=== PATIENT | male | born 1950 | race Caucasian/White ===

== ENCOUNTER 2024-06-16 13:46 | Inpatient (IN) | payer MEDICARE, BC, SELFPAY ==
[2024-06-16] VITALS (16 sets, daily range): BP systolic 112–166; BP diastolic 66–105
--- NOTE | 2024-06-16 10:16 | ED.GENMED ---
History of Present Illness
General
Chief Complaint: Chest Pain
Source: patient
Time Seen by Provider: 06/16/24 10:09
History of Present Illness
History of Present Illness:
74-year-old male presents to the emergency room complaining of chest pain. Patient noted the chest discomfort last night. He describes it as a pressure that does radiate somewhat to the left arm. He took some ibuprofen without improvement. The
pain waxes and wanes in intensity. He did feel short of breath with walking today. He denies any known cardiac history. He has never seen a vocational case manager. He does not currently smoke but is a former smoker quit 40 years ago. He takes no
prescription medications.
Past History
Past History
ED Past Medical History: None
ED Past Surgical History: Other (Cataract surgery)
Social History
Tobacco: Former smoker
Alcohol: Occasional
Drug: None
Phy Exam
Physical Exam
Physical Exam:
General: Awake, Alert, Oriented X3. No acute distress.
Vitals: unremarkable
Head: Atraumatic
Eyes: Pupils equal, EOMI
Throat: Airway intact, no exudates
Neck: Trachea midline
Lungs: Clear and equal b/l
Heart: Regular rate, no murmurs
Abd: Soft, Nontender, No pulsatile mass
Neuro: Nonfocal
Skin: Warm, dry, no rash
Extremities: pulses equal b/l, no edema
Scores
Heart Score for Chest Pain Patients
STEMI patient?: No
History: Highly Suspicious
ECG: Significant ST-Depression
Age: >/= 65 years
Risk Factors: 1 or 2 Risk Factors
Troponin: >1 - <3 x Normal Limit
Heart Score for Chest Pain Patients: 8
Heart Score Risk: 72.7 % MACE over next 6 weeks
Course
Orders/Labs/Results
Orders:
Orders
06/16/24
Electrocardiogram (*1) Stat
Reason for Study: Chest Pain
Comment: DONE
06/16/24 09:58
EKG [Electrocardiogram (*1)] Urgent
Reason for Study: Chest Pain
EKG- Treatment ONCE
06/16/24 10:14
Aspirin Chewable [Low Strength Aspirin] 324 mg PO NOW STA
Nitroglycerin Sublingual [Nitrostat (Sublingual)] 0.4 mg SL [id number] PRN
06/16/24 10:15
Cardiac Monitoring- Treatment ONCE
CR Chest Portable - 1 View Urgent
Comment:
Reason For Exam: chest pain
Reason Study Needs to be Portable: Unable to Transport
06/16/24 10:20
Basic Metabolic Panel Urgent
Complete Blood Count/With Diff Urgent
Troponin I Urgent
06/16/24 11:13
Heparin 4,000 units IV NOW STA
Nitroglycerin 100 mg/250 ml [Nitroglycerin Premix] 100 mg in 250 ml IV NOW
Initial dose in mcg/min, then titrate:: 5
Titrate to keep:: SBP < 160 mmHg
Titrate by mcg/min:: 5 mcg/min, may increase by 10 mcg/min if dose > 20 mcg/min
Frequency of titrations (minutes):: every 3-5 minutes
Maximum dose in mcg/min:: 200
Begin to taper infusion when:: Remained at goal for 2hrs
Taper by mcg/min:: 5 mcg/min
Frequency of taper (minutes) if patient maintains goal:: 30
Taper to off?: Yes
If infusion off & no longer maintaining goal:: Contact Provider
Nursing to Place Non Medication Order As Directed
Physician Order: PTT 6 hours after initial start of Heparin infusion
06/16/24 11:15
Heparin 69672 Units/250 ml 25,000 units in 250 ml IV PER PROTOCOL
Weight to be used for heparin protocol in kilograms (kg):: 98
Protocol:: Cardiac Tx/Acute Coronary
PTT Goal Range to be used:: PTT 73 to 111 seconds
Order type:: Initial
INITIAL Infusion Dose (UNITS/KG/hr) & then follow protocol:: 15 units/kg/hr
Infusion Dose in UNITS/hr & then follow protocol (UNITS/hr):: 1,450
INFUSION RATE in mL/hr & then follow protocol (mL/hr):: 14.5
PTT less than or equal to 64 seconds:: Increase rate by 200 units/hr (+ 2 mL/hr)
PTT 64.1 to 72.9 seconds:: Increase rate by 100 units/hr (+ 1 mL/hr)
PTT 73 to 111 seconds:: Target Range. No change in rate.
PTT 111.1 to 130.9 seconds:: Decrease rate by 100 units/hr (- 1 mL/hr)
PTT 131 to 199.9 seconds:: HOLD for 1 hr. Then decrease rate by 200 units/hr (- 2 mL/hr)
PTT greater than or equal to 200 seconds:: HOLD for 2 hrs & Notify Provider. Then decrease by 200 units/hr (-
2 mL/hr)
Lab follow-up:: Each change, PTT q6h until 2 consecutive are therapeutic. Then PTT
daily.
06/16/24 11:43
PTT Urgent
Comment: Obtain baseline before beginning heparin infusion if not already collected
Abnormal Lab Results
06/16/24 06/16/24
10:20 11:43
MCH 31.6 H pg
(27.0-31.0)
Lymphocytes % 19.6 L %
(20.5-51.1)
APTT > 200.0 H* Sec
(23.4-35.0)
Glucose 124 H mg/dl
(70-99)
Troponin I 0.046 H* ng/ml
06/16/24 10:20
06/16/24 10:20
Vital Signs
Initial and Last Documented VS:
Initial Vital Signs
Temp Pulse Resp BP Pulse Ox
98.7 F 75 16 153/99 98
06/16/24 10:02 06/16/24 10:02 06/16/24 10:02 06/16/24 10:02 06/16/24 10:02
Last Documented Vital Signs
Temp Pulse Resp BP Pulse Ox
98.7 F 76 18 144/85 98
06/16/24 10:02 06/16/24 10:30 06/16/24 10:30 06/16/24 10:34 06/16/24 10:32
MDM/Problems Addressed
Differential Diagnosis Includes:
nstemi, ptx, gerd
MDM/Problems Addressed:
Patient presents with chest discomfort that began last night. He has T wave inversion in the anterior leads which is new when compared to an EKG of 2021. His troponin did come back elevated though slightly at 0.046. Case discussed with
cardiology, Dr. Ross. We will admit the patient to the hospital service. Start nitro and heparin. Cardiology will see the patient
Patient seen by Dr. Mejía. Plan is to take him to the [facility] shortly.
*Pulse Oximetry
Patient hypoxic: no
*EKG
Interpreted by ED Provider?: Yes
Interpretation: abnormal
Heart Rate: 63
Rate: normal
Rhythm: sinus
QRS Pattern: normal QRS
Ischemia: T-wave inversion (Anterior leads)
*Loan Secretary Interpretation
Rate: normal
Interpretation: normal
Heart Rate: 63
Rhythm: sinus
*Critical Care Note
Total Time (30-74mins, 75-104mins- exclusive of procedures): 35 min
comment:
Critical care statement: A total of 35 minutes of critical care time was provided for this patient. This includes management of unstable vital signs, evaluation of the patient at bedside, reviewing the patient�s pertinent medical records, discussion
with consultants, review of old EKGs and review of pertinent medical records. This time with separate from time utilized to perform the aforementioned documented procedures
ED Attending Note
-
Portions of this chart may have been created with voice recognition software.� Occasional wrong word or��sound alike� substitutions may have occurred due to the inherent limitations of voice recognition software.
Discharge Plan
Departure
Patient Disposition: Admit
Date of Disposition: 06/16/24
Time of Disposition: 11:25
Admit to: IVU
Presentation/result/management discussed w/ accepting MD/DO: Hospitalist
Condition: Fair
Discharge Problem:
Non-ST elevation IA (NSTEMI)
Prescriptions:
No Action
ibuprofen [Advil] 200 mg Tablet
200 mg PO Q6HPRN PRN (Reason: mild pain)
Referrals:
UNKNOWN - PT DOES,NOT KNOW [Family Provider] -
Interventions
Interventions:
*Risk Screen - Suicide Last Done: 06/16/24 10:02
*General Assessment Last Done: 06/16/24 10:32
*Neglect/Abuse Screening Last Done: 06/16/24 10:02
*ED- Fall Risk Assessment Last Done: 06/16/24 10:32
*ED COVID-19 Vaccine History Last Done: 06/16/24 10:32
ED- Cardiac Assessment Last Done: 06/16/24 10:29
Discharge Date and Time
Print Language: AZERBAIJANI
[2024-06-16] MEDS: LOW STRENGTH ASPIRIN 324 MG PO (10:25)
[2024-06-16] MEDS: NITROSTAT (SUBLINGUAL) 0.4 MG SL (10:27)
[2024-06-16 10:35] LABS: % Basophils 0.6 % (0-2); % Eosinophils 3.4 % (0-6); % Immature Granulocytes 0.5 % (0-0.5); % Lymphocytes 19.6 % (20.5-51.1); % Monocytes 6.3 % (1.7-9.3); % Neutrophils 69.6 % (42.2-75.2); Absolute Basophils 0.1 10^3/uL (0-0.2); Absolute Eosinophils 0.3 10^3/uL (0-0.7); Absolute Lymphocytes 1.5 10^3/uL (1.2-3.4); Absolute Monocytes 0.5 10^3/uL (0.1-0.6); Absolute Neutrophils 5.5 10^3/uL (1.4-6.5); Hematocrit 46.4 % (39.0-52.0); Hemoglobin 16.4 g/dL (13.0-18.0); Mean Corp Hgb Conc. 35.3 g/dL (33.0-37.0); Mean Corpuscular Hgb 31.6 pg (27.0-31.0); Mean Corpuscular Volume 89.4 fL (80.0-94.0); Mean Platelet Volume 9.9 fL (7.4-10.4); Nucleated Red Blood Cells % 0 % (-); Platelet Count 225 10^3/uL (130-400); Red Blood Cell Count 5.19 10^6/uL (4.70-6.10); Red Cell Dist. Width 12.3 % (11.5-14.5); White Blood Cell Count 7.8 10^3/uL (4.8-10.8)
[2024-06-16 10:51] LABS: Blood Urea Nitrogen 14 mg/dl (9-20); Calcium 9.8 mg/dl (8.4-10.2); Carbon Dioxide 27 mmol/L (22-30); Chloride 103 mmol/L (98-107); Glucose 124 mg/dl (70-99); Potassium 4.4 mmol/L (3.5-5.1); Sodium 139 mmol/L (135-145); eGFR > 60.00
[2024-06-16 11:04] LABS: Troponin I 0.046 ng/ml
[2024-06-16] MEDS: HEPARIN 4000 UNITS IV (11:29)
[2024-06-16] MEDS: NITROGLYCERIN PREMIX 250 IV (11:37)
[2024-06-16 12:15] LABS: APTT > 200.0 Sec (23.4-35.0)
[2024-06-16] MEDS: HEPARIN 25000 UNITS/250 ML IV ×2 (12:31→18:10)
--- NOTE | 2024-06-16 12:50 | CON.CAR ---
Addendum entered and electronically signed by Ramin Toledo MD 06/16/24 16:03:
Attending addendum: Patient seen and examined. PA note reviewed and findings independently confirmed by me. Briefly, Mr. Hamilton is a 74-year-old gentleman who rarely seeks medical attention. He presented to [facility] with a 12 to
18-month history of intermittent substernal chest pain which he would note during periods of physical exertion or emotional stress. Within the past 48 hours the symptoms began occurring at lower levels of exertion or at rest. He experienced chest
discomfort yesterday and again today with troponin measuring 0.046 ng/mL. Given the symptoms and elevated troponin he is referred for emergent coronary angiography.
Physical exam
GEN: AAO x 3.��No acute distress
HEENT:��NC/AT, sclera are anicteric, hearing and nares are normal.��MMM
NECK: Supple.��Normal JVP
LUNGS: Clear to bases bilaterally.��No wheezing or rhonchi
CV: Regular rate and rhythm.��Normal S1/S2.��No S3, No S4.��Murmur: None
ABD : Soft, NT, ND, No HSM.��Bowel sounds are present.
EXT: No CCE
NEURO: No focal neurologic deficits�
ECG: Sinus rhythm with ST-T changes in the anterior leads V1 through V4
RECOMMENDATIONS:
-Patient will be referred for emergent coronary angiography given elevated troponins and unstable nature of symptoms. He is largely chest pain-free on IV nitroglycerin with only a very slight/very mild residual chest discomfort.
-Continue to trend serial troponins
-Discussed the risks and benefits of proceeding with emergent coronary angiography. Patient was in agreement.
Original Note:
Consultation
Consultation Request
Date/Time Consultation Performed: 06/16/24
Requesting Provider: Dr. Ugarte
Performing Provider: Soraya Villalpando PA-C for Dr. Nassar
Reason for Consultation: CP
Medical History
-
Chief Complaint: CP
History of Present Illness:
Patient is a 74 yo M without significant PMH. Patient states he does not have a PCP. He reports yesterday while watching TV he developed central chest discomfort with some mild radiation down his L arm. He reports this improved with sitting up. He
then had several additional episodes over the course of several hours which improved with sitting up. He states he then woke up this morning with chest discomfort which persisted and did not go away with sitting up with associated diaphoresis so he
came to ER for evaluation. No pain with taking deep breath. Initial trop 0.04. EKG with anteroseptal abnormality, noted on past EKG from 2021. Cardiology consulted for evaluation. Was given asa, SL nitro and started on IV heparin. He reports no
significant improvement with meds. Reports pain remains 06/05. Started on IV nitro @5.
PMH:
Obesity
Remote former smoker
Past Medical History
Past Medical History: Other (in HPI)
Social History
Tobacco: Former Smoker
Alcohol: Other (2-3 beers 4 times per week)
Employment: Retired
Family History
Family History: CAD (in father)
Allergies / Home Medications
Allergy/AdvReac Type Severity Reaction Status Date / Time
No Known Allergies Allergy Unverified 07/18/21 17:15
�Medication �Instructions �Recorded �Confirmed �Type
ibuprofen 200 mg tablet (Advil) 200 mg PO Q6HPRN PRN mild pain 06/16/24 06/16/24 History
Review of Systems
-
History Source: Patient
All other systems: Negative unless noted
Physical Exam
Vital Signs
Temp Pulse Resp BP Pulse Ox
98.7 F 76 18 144/85 98
06/16/24 10:02 06/16/24 10:30 06/16/24 10:30 06/16/24 10:34 06/16/24 10:32
Lab Results
06/16/24 10:20
06/16/24 10:20
Troponin I 0.046 ng/ml H* 06/16/24 10:20
Physical Exam
General: No Apparent Distress and Comfortable
HEENT: Normocephalic, Anicteric and Moist Mucous Membranes
Respiratory: Clear and Non Labored Respirations
Cardiac: S1/S2 and Regular Rhythm
GI: Soft, Non Tender, Non Distended and Normal Bowel Sounds
Musculoskeletal: No Clubbing, No Cyanosis and No Edema
Skin: Warm and Dry
Neuro: AO x 3
Impression / Plan
-
Primary Mds Coordinator: none
PCP: none
Assessment:
Presentation with CP
Elevated troponin
Abnormal EKG
Obesity
Remote former smoker
Plan:
-Patient presents to ER for evaluation of CP
-Initial trop elevated at 0.04, trend to peak
-EKG abnormal but similar compared to prior with anteroseptal ST abnormality
-CXR with evidence of atelectasis
-remains with 3/10 chest discomfort, not relieved with asa, SL nitro x1. presently on IV heparin and IV nitro gtt @5.
-last ate last evening. plan for cath today. procedure reviewed with patient in detail and he is agreeable to proceed
-check echo post cath
-continue asa 81mg daily
-check CVE, hgbA1c
-further recommendations pending results of cath
Data Reviewed
-
EKG: Tracing Personally Visualized and interpreted
Radiology: Report Reviewed by me
Labs: Labs Reviewed by me
Old Records: Reviewed
--- NOTE | 2024-06-16 12:58 | W.PN.UPDATE ---
Update Note
Progress Note Update
This is an addendum to the H&P written by Libertad Thapa on 06/16/2024.� Patient seen and examined independently with DISEASE CASE MANAGER RN.
74-year-old male past medical history of untreated hypertension, presenting with chest pressure since last night radiating to left arm.� Former smoker.� Drinks alcohol weekly.
EKG shows nonspecific T wave inversions.� Troponin of 0.046.
Concern for NSTEMI.� Aspirin given.� Heparin drip started.� Nitroglycerin drip started with some improvement in pain.� Trend troponins.� Check A1c and lipid panel.� Cardiology consulted. NPO for cath today.�
--- NOTE | 2024-06-16 13:08 | HPS.HSE ---
Family Physician
-
Family Physician: NOT KNOW UNKNOWN - PT DOES
Chief Complaint
-
Mid sternal cp to left arm since last night
History of Present Illness
74-year-old male who states last night at approximately 8 PM he developed midsternal chest pain radiating to his left arm this persisted through the night on and off however at 9 AM the midsternal chest pain came back with episode of diaphoresis it
was 5 out of 10 radiating to his left arm he decided to come to ER for evaluation where he was noted to have EKG changes and NSTEMI. He denies any nausea, fever, chills, shortness of breath, cough, abdominal pain, nausea, vomiting, diarrhea,
urinary symptoms. He was placed on IV nitroglycerin IV heparin drip still 3 out of 10 midsternal chest pain and left arm pain on my exam. His last p.o. intake was 8:30 PM yesterday 06/15/2024 except sip of water with aspirin in the ED. He states
his father had his first CT in his 50s but was a heavy smoker. Patient reports history of hypertension but did not take meds due to not feeling his hypertension. Cardiology Dr. Toledo is at bedside explaining need for cardiac cath procedure and
need for daily medication for which the patient states he will be compliant. The patient does drink 3 beers 4 times a week approximately 12 beers a week or more he was a former smoker 1 pack a day 15 years quit at age 34. I spoke with his daughter
Ny via phone [phone] who states she will come to the hospital after work. I made her aware the paste mixer will call her after the procedure is over.
Medical History
Past Medical History
Past Medical History: Reports HTN
Additional Past Medical History:
former smoker 15 year 1ppd quit age 34
Alcohol misuse disorder
Past Surgical History: Reports Other
Additional Past Surgical History:
Bilateral cataract extraction with lens implants
Social History
Tobacco: Former Smoker (former smoker 15 year 1ppd quit age 34)
Alcohol: Daily (Drinks 3 beers 4 times a week approximately 12 beers weekly)
Personal:
Living: Alone
Employment: Retired
Family History
Family History: Early CAD (Father CT age 50s no intervention, HTN, HLD, heavy smoker did in his 70s, mother lived to age 95 history hypertension, DM2)
Allergies / Home Medications
Allergies reflects when Allergies were last updated in [employer].
Home Medications with original date entered in [employer]
Allergy/Medication List:
Allergies
Allergy/AdvReac Type Severity Reaction Status Date / Time
No Known Allergies Allergy Unverified 07/18/21 17:15
Home Medications
ibuprofen 200 mg tablet (Advil) 200 mg PO Q6HPRN PRN mild pain 06/16/24
Review of Systems
-
History Source: Patient
A 12 point ROS was completed and negative except as noted: Yes
Constitutional: Denies Fever, Fatigue or Chills
EENT: Denies Sore Throat or Runny Nose
Respiratory: Denies Cough, Hemoptysis or Trouble Breathing
Cardiac: Reports Chest Pain (Midsternal 3 out of 10 radiating to left arm) and Diaphoresis (This a.m. at 9 AM); Denies Palpitations or Syncope
Abdomen/GI: Denies Abdominal Pain, Nausea, Vomiting, Diarrhea, Constipated, Bloody Stools, Black Stools or Anorexia
: Denies Dysuria, Frequency, Flank Pain, Incontinence, Difficulty Voiding, Urgency, Bleeding or Dark Urine
Musculoskeletal: Denies Joint Pain or Edema
Skin: Denies Itching or Rash
Neurological: Reports Headache (Post IV nitro); Denies Dizzy, Weakness or Numbness
Hematologic/Lymphatic: Reports No Symptoms
Psych: Reports Calm
Physical Exam
Vital Signs
Vital Signs
Temp Pulse Resp BP Pulse Ox
98.7 F 76 18 144/85 98
06/16/24 10:02 06/16/24 10:30 06/16/24 10:30 06/16/24 10:34 06/16/24 10:32
Physical Exam
General: Comfortable, Conversant and Pain (3 out of 10 midsternal chest pain on IV nitro/IV heparin radiates to left arm); No Chills or Sweats
HEENT: NormoCephalic, Anicteric, Moist mucous membranes, PERRLA, [place] Conjunctivae, No Ptosis and Neck Nontender
Respiratory: Clear; No Wheezes, Rales or Rhonchi
Cardiac: S1/S2 and Regular Rhythm; No Murmur, Rub, Gallop or Peripheral Edema
Breast: Deferred by me
GI: Soft, Non Tender, Non Distended, Normal Bowel Sounds and No Hepatosplenomegaly
Rectal: Deferred by Provider
Genito-urinary: Deferred by me
Musculoskeletal: No Clubbing and No Cyanosis
Skin: Warm and Dry; No Rash or Jaundice
Neuro: AO x 3, No Motor Deficits, Nonfocal/grossly intact, Cranial Nerves Intact and No Sensory Deficits; No Slurred Speech, Facial Droop, Tremors or Sedated
Psych: Calm
Laboratory Results
-
06/16/24 10:20
06/16/24 10:20
Laboratory Results
APTT > 200.0 Sec (23.4-35.0) H* 06/16/24 11:43
Troponin I 0.046 ng/ml H* 06/16/24 10:20
Data Reviewed
-
Diagnostic Radiology: Report Reviewed by me
Lab Data: Labs Reviewed by me
Impression/Plan
-
Impression/plan:
Admit to IVU
NSTEMI
-Consult cardiology Dr. Toledo at bedside
Troponin 0.046
-Aspirin 325 mg given in the ER for further therapy per cardiology recommendations
-IV nitroglycerin drip infusing will continue to titrate to chest pain
-IV heparin drip infusing will continue
APTT was drawn 1 hour after IV heparin bolus was given will see initial PTT greater than 200 however this is medication induced
-Check echo post cath
-PT/OT/case management consult
EKG: NSR 63 bpm, QTc [address] and T wave abnormality anterior leads With ST depression, T wave inversion
CXR: Minimal bibasilar airspace opacities likely atelectasis
#Alcohol misuse disorder
-Drinks 3 beers 4 times a week approximately 12 beers possibly more
-Cessation advised
-MSAs screen with protocol-low suspicion for withdrawal
-IV thiamine, IV folate
#History HTN
BP 144/85
-Patient reports history of hypertension never took meds due to not feeling any symptoms
-Patient was made aware will need to take medications post cardiac cath and he is agreeable and understands the importance
-Patient currently on IV nitro drip
-Additional medications per cardiology
#Former smoker
1 pack a day x 15 years quit age 34(40 years ago)
DVT prophylaxis
IV heparin drip
Full code patient's daughter Ny [phone] is his emergency contact she is aware of current cardiac cath will come to the hospital after work telephone number was given to Dr. Toledo and Soraya his PA
[2024-06-16 14:37] LABS: HDL Cholesterol 65 mg/dl; LDL Cholesterol, Calculated 188 mg/dl; Total Cholesterol 279 mg/dl (50-199); Triglyceride 131 mg/dl (10-149); Very Low Density Lipoprotein 26 mg/dl (0-30)
--- NOTE | 2024-06-16 15:39 | ITS.CL.CATH ---
Plugger Worker - Catheterization
Cardiac Catheterization
Procedure Report:
LEFT HEART CATHETERIZATION
Date of Procedure: June 16, 2024
Referring: Dr. Ramin Toledo
PROCEDURES:
1. Left heart catheterization with coronary and single-plane left ventriculography
INDICATION: This is a 74-year-old gentleman who never seeks medical attention but has a history of hypertension. He reports the development of substernal chest tightness going back at least 12 to 18 months during periods of physical and emotional
stress. The symptoms improve with rest and have always resolved spontaneously. On the day before admission he experienced chest pain lasting several hours with mild radiation into the arm. He awoke this morning and noticed some ongoing substernal
chest tightness and presented to [facility] for further evaluation. His initial troponin measured 0.04 ng/mL. A cardiology consult was requested. He was started on IV nitroglycerin and essentially became chest pain-free.
ACCESS: Right radial artery, 6 Luxembourgish sheath
HEMODYNAMICS : (mmHg)
AO (s/d) : 135/88
LV (s/d) : 138/15
LVEDP : 35
CORONARY FINDINGS
DOMINANCE: Right
LEFT MAIN: Normal
LEFT ANTERIOR DESCENDIN% occluded proximally with the distal vessel filling via well-developed right to left collaterals and faint left to left collaterals are noted as well.
RAMUS: Ramus intermedius is a small to medium caliber vessel that appears widely patent
CIRCUMFLEX: The circumflex becomes 100% occluded proximally. The distal vessel is noted to fill via faint right to left collaterals and left to left collaterals
RIGHT CORONARY ARTERY: The right coronary artery is a large-caliber dominant vessel with a 30% ostial-proximal narrowing. The PDA is large. The posterolateral branch is large. There are well-developed collaterals to the mid LAD and diagonal
branch. Collaterals are also noted to fill a circumflex branch.
VENTRICULOGRAPHY: Left ventriculography was performed in an QUIGLEY projection. The digital single-plane left ventricular ejection fraction is visually estimated at 45-50%
SEDATION: 24 minutes of procedural sedation was utilized. An independent chief medical physicist was present to assist with and help manage the patient's level of consciousness and physiologic status.
RADIATION SUMMARY: Fluoro Time (min): 5.2, Dose (mGy): 517, DAP (Gy.cm2) : 50
Closure Device: TR band
CONCLUSIONS
1. Advanced coronary artery disease with 100% occlusion of the proximal circumflex and proximal LAD with a distal vessel filling via well-developed right to left and faint left to left collaterals
2. Low normal to mildly reduced LVEF
RECOMMENDATIONS
1. Patient will be admitted and CT surgery consulted for surgical revascularization of LAD and circumflex
2. IV diuresis
3. Trend serial troponin
Copy to: Dr. Ramin Toledo
--- NOTE | 2024-06-16 15:56 | CM ---
Reviewed chart Met with Mr. Hamilton to review discharge plans. He states prior to admission he resides alone in a one story home with four steps to enter. He resides at [facility]. He states he has been there for twelve years. He states prior
to admission he was independent with ambulation and adls. He states he barron not have any DME in the home. He states he has a prescription plan and uses [facility]. Medical work-up in progress. The discharge plan is to return home when medically
stable.
--- NOTE | 2024-06-16 16:17 | CONSULT.CT ---
Consultation
-
Date/Time Consultation Requested: 06/16/24
Date/Time Consultation Performed: 06/16/24
Requesting Provider: Ramin Toledo
Performing Provider: Terrie DUDLEY/Norman Regalado MD
Reason for Consultation: CABG evaluation
Patient History
Physicians
Family Physician: none
Outpatient Insulator Helper: none
Inpatient Insulator Helper: Ramin Toledo
History of Present Illness
José Manuel Hamilton is a 74-year-old, [id number], male who presented to [facility] emergency room on 06/16/2024 for evaluation of midsternal chest pressure with radiation down his L arm while watching television last evening. Symptoms
resolved but experienced several additional episodes over the course of several hours which improved with sitting up. Today, the chest discomfort persisted (Rated 4-5/10) and was associated with diaphoresis. Initial troponin was 0.046 and he was
treated with IV heparin and nitroglycerin. Chest pain was reduced to a 2�3/10 and patient proceeded to Anaesthetic Technician.
Pertinent negatives: Denies CVA/TIA, dysphagia, GERD, hepatitis, BPH, blood clots, cancer
Past Medical History
Past Medical History: HTN (untreated) and Other (Fracture left foot-removed)
Past Surgical History
Past Surgical History: Other (Left cataract extraction)
Family History
Mother: at Age
Father: at Age
Family Medical History: Early CAD (father-[place] in his 50s)
Social History
Alcohol: Occasional (12 beers/week)
Drug: None
Tobacco: Former Smoker (Quit 40 years ago)
Personal:
Living: Alone
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
Allergies
Allergy/AdvReac Type Severity Reaction Status Date / Time
No Known Allergies Allergy Unverified 07/18/21 17:15
Home Medications
�Medication �Instructions �Recorded �Confirmed �Type
ibuprofen 200 mg tablet (Advil) 200 mg PO Q6HPRN PRN mild pain 06/16/24 06/16/24 History
Review of Systems
-
History Source: Patient
General: Reports No Symptoms
HEENT: Reports No Symptoms
Cardiac: Reports Chest Pain
Abdomen/GI: Reports No Symptoms
: Reports No Symptoms
Musculoskeletal: Reports No Symptoms
Skin: Reports No Symptoms
Neurological: Reports No Symptoms
Vascular: Reports No Symptoms
Physical Exam
Vital Signs
Temp 98.7 F 06/16/24 10:02
Temp route: Oral 06/16/24 10:02
Pulse 80 06/16/24 14:45
Resp Rate 29 06/16/24 14:45
Blood pressure 129/87 06/16/24 14:42
MAP (cuff-James Monitor) 100 06/16/24 14:42
SaO2 95 06/16/24 14:45
Oxygen Mode of Delivery Room air 06/16/24 15:15
Can the patient verbally communicate their pain? Yes 06/16/24 15:17
Pain scale ratin 06/16/24 15:17
Actual Weight 98 kg 06/16/24 15:33
Labs
06/16/24 13:43
06/16/24 10:20
APTT Cancelled 06/16/24 13:43
Troponin I 0.046 ng/ml H* 06/16/24 10:20
Diagnostic Studies
LHC via R radial by Dr Toledo 06/16/24:
LVEDP : 35
LEFT MAIN: Normal
LEFT ANTERIOR DESCENDIN% occluded proximally with the distal vessel filling via well-developed right to left collaterals and faint left to left collaterals are noted as well.
RAMUS: Small to medium caliber vessel that appears widely patent
CIRCUMFLEX: 100% occluded proximally. The distal vessel is noted to fill via faint right to left collaterals and left to left collaterals
RIGHT CORONARY ARTERY: 30% ostial-proximal narrowing. The PDA is large. The posterolateral branch is large. There are well-developed collaterals to the mid LAD and diagonal branch. Collaterals are also noted to fill a circumflex branch.
Exam
General: Well Developed, Well Nourished, No Apparent Distress and Comfortable
HEENT: Normocephalic, Anicteric and Moist Mucous Membranes
Neck: Trachea Midline
Respiratory: Clear
Cardiac: S1/S2 and Regular Rhythm
GI: Soft and Non Tender
Rectal: Deferred by Provider
Skin: Warm and Dry
Neuro: AO x 3 and No Motor Deficits
Lymph: No Lymphadenopathy
Psych: Calm
Assessment / Plan
-
74-year-old male with two-vessel coronary disease (LAD and circumflex)
- surgeon to review imaging and d/w restaurant cashier and patient
- pre-op diagnostics ordered including TTE
Data Reviewed
-
EKG: Report Reviewed by me and Discussed with Physician
Anaesthetic Technician: Report Reviewed by me and Discussed with Physician
Radiology: Report Reviewed by me and Discussed with Physician
Labs: Labs Reviewed by me and Discussed with Physician
[2024-06-16 16:50] LABS: GGTP 29 U/L (15-73); HDL Cholesterol 76 mg/dl; LDL Cholesterol, Calculated 178 mg/dl; Phosphorus 2.8 mg/dl (2.5-4.5); Total Cholesterol 288 mg/dl (50-199); Triglyceride 174 mg/dl (10-149); Very Low Density Lipoprotein 34 mg/dl (0-30)
[2024-06-16 16:57] LABS: B-Hydroxybutyrate 0.15 mmol/L (0.02-0.27)
[2024-06-16] MEDS: LIPITOR 80 MG PO (18:34)
[2024-06-16 19:04] LABS: Urine Albumin Negative (Neg - Trace); Urine Bilirubin Negative (Negative); Urine Character Clear (Clear); Urine Color Yellow; Urine Glucose 2+ (Negative); Urine Ketone Negative (Negative); Urine Leukocyte Negative (Negative); Urine Nitrite Negative (Negative); Urine Occult Blood 1+ (Negative); Urine Specific Gravity 1.015 (<1.030); Urine Urobilinogen Negative (Neg - 1+)
[2024-06-16 19:13] LABS: Amphetamines Negative (Negative); Barbiturates Negative (Negative); Benzodiazepines Negative (Negative); Buprenorphine Negative (Negative); Cocaine Negative (Negative); Marijuana Negative (Negative); Methadone Negative (Negative); Methamphetamines Negative (Negative); Opiates Negative (Negative); Phencyclidine Negative (Negative); Tricyclic Antidepressants Negative (Negative)
[2024-06-16 19:17] LABS: Urine Red Blood Cell 0-2 /HPF (0-2); Urine Squamous Cell None seen /LPF (Few); Urine White Cell 0-2 /HPF (0-5)
[2024-06-16] MEDS: THIAMINE INJECTION 200 MG IV (21:18)
[2024-06-16] MEDS: TOPROL XL 25 MG PO (21:19)
[2024-06-17] VITALS (7 sets, daily range): BP systolic 117–147; BP diastolic 75–96
[2024-06-17 00:24] LABS: APTT 38.5 Sec (23.4-35.0)
--- NOTE | 2024-06-17 01:11 | PTCARENOTE ---
Assumed care of the patient @ 1900. Pt is AAOx3 SR on the monitor VSS Heparin and Nitro gtts infusing. Rt radial cath site dressing c/d/i. no bleeding no hematoma. Trop 49.2 Jessy Nino aware.
[2024-06-17 06:47] LABS: % Basophils 0.2 % (0-2); % Eosinophils 0.3 % (0-6); % Immature Granulocytes 0.5 % (0-0.5); % Lymphocytes 9.5 % (20.5-51.1); % Monocytes 7.7 % (1.7-9.3); % Neutrophils 81.8 % (42.2-75.2); Absolute Immature Granulocytes 0.1 10^3/uL (0-0.05); Absolute Lymphocytes 1.2 10^3/uL (1.2-3.4); Absolute Neutrophils 10.1 10^3/uL (1.4-6.5); Hemoglobin 14.6 g/dL (13.0-18.0); Mean Corp Hgb Conc. 35.6 g/dL (33.0-37.0); Mean Corpuscular Hgb 31.3 pg (27.0-31.0); Mean Platelet Volume 10.1 fL (7.4-10.4); Nucleated Red Blood Cells % 0 % (-); Platelet Count 201 10^3/uL (130-400); Red Blood Cell Count 4.66 10^6/uL (4.70-6.10); Red Cell Dist. Width 12.2 % (11.5-14.5); White Blood Cell Count 12.3 10^3/uL (4.8-10.8)
[2024-06-17 07:02] LABS: APTT 50.7 Sec (23.4-35.0)
--- NOTE | 2024-06-17 07:08 | W.PN.HOSP.TC ---
Today's Communication/Plan
-
see a/p
Assessment / Plan
Assessment / Plan
Physical Exam
General: No acute distress appears comfortable at this time.
HEENT: NormoCephalic, Anicteric, Moist mucous membranes, PERRLA
Respiratory: Clear; No Wheezes, Rales or Rhonchi
Cardiac: S1/S2 and Regular Rhythm; No Murmur, Rub, Gallop or Peripheral Edema
GI: Soft, Non Tender, Non Distended, Normal Bowel Sounds
Musculoskeletal: No Clubbing and No Cyanosis
Skin: Warm, No Rash or Jaundice noted
Neuro: AO x 3 conversant coherent
Psych: Calm
74-year-old male past medical history of untreated hypertension, presenting with chest pressure since last night radiating to left arm.� Former smoker.� Drinks alcohol weekly. Admitted and treated for NSTEMI. Cath found multivessel disease with
100% occlusion proximal circumflex and proximal LAD. Patient planned for surgical revascularization.
NSTEMI
Multivessel Dz
-Cardio consult appreciated
-CT surgery consult appreciated
-Troponin trended to peak 117
-Received Aspirin 325 mg in ER, cont maintenance dose 81 mg daily
-IV nitroglycerin gtt
-IV heparin gtt
-ECHO appreciated EF 50-55% no valve abn's noted
#Alcohol misuse disorder
-Drinks 3 beers 4 times a week approximately 12 beers possibly more
-Cessation advised
-MSAs screen with protocol-low suspicion for withdrawal
-thiamine, folate
#History HTN
-Patient reports history of hypertension never took meds due to not feeling any symptoms
-Compliance counseled
-Patient currently on IV nitro drip
-Metoprolol Lasix as per cardiology
#Former smoker
DVT prophylaxis heparin gtt
Full Code
I spent a total of 50 minutes with the patient or on the floor. More than 50% of this time involved counseling and coordination of care.
Anticipated Discharge: > 48 hours
Subjective/Interval History
-
Date of Service: June 17, 2024
No acute distress resting comfortably in bed. Reports feeling well, chest pain resolved.
Objective Data
-
Labs:
Laboratory Results
06/17/24 06/17/24
00:01 06:37
WBC 12.3 H
Hgb 14.6
Hct 41.0
Plt Count 201
APTT 38.5 H 50.7 H
Sodium Pending
Potassium Pending
Chloride Pending
Carbon Dioxide Pending
BUN Pending
Creatinine Pending
Glucose Pending
Calcium Pending
Total Bilirubin Pending
AST Pending
ALT Pending
Alkaline Phosphatase Pending
Vital Signs:
Vital Signs
Temp Pulse Resp BP Pulse Ox
97.9 F 65 16 119/80 97
06/17/24 03:19 06/17/24 03:19 06/17/24 03:19 06/17/24 03:17 06/17/24 03:19
I&O
06/16/24 06/17/24 06/18/24
06:59 06:59 06:59
Intake Total 900 / 900
Output Total 1500 / 1500
Balance -600 / -600
[2024-06-17 07:26] LABS: ALT (SGPT) 62 U/L (0-50); AST (SGOT) 586 U/L (17-59); Alkaline Phosphatase 88 U/L (38-126); Blood Urea Nitrogen 12 mg/dl (9-20); Calcium 9.4 mg/dl (8.4-10.2); Carbon Dioxide 26 mmol/L (22-30); Chloride 102 mmol/L (98-107); Estimated Creatinine Clearance 92 ml/min; Glucose 123 mg/dl (70-99); HDL Cholesterol 59 mg/dl; LDL Cholesterol, Calculated 146 mg/dl; Sodium 133 mmol/L (135-145); Total Cholesterol 232 mg/dl (50-199); Total Protein 6.8 g/dl (6.3-8.2); Triglyceride 137 mg/dl (10-149); Very Low Density Lipoprotein 27 mg/dl (0-30); eGFR > 60.00
--- NOTE | 2024-06-17 07:47 | W.PN.CARDCBS ---
Addendum entered and electronically signed by Lamberto Nassar MD 06/17/24 10:35:
I saw and examined the patient.
The Bakery Manager's note was reviewed and I agree with the note.
Comment:
GEN: No distress, awake, Ox3
HEENT: supple, anicteric, mmm
LUNGS: CTA, no wheezes/rales
CV: Reg, S1/S2, 1/6 syst LSB, no gallop
ABD: soft, BS+, NT/ND
EXT: No edema
NEURO: Gross non-focal
SKIN: No rash
PLan:
Cath results reviewed. Troponin elevated at 117. Continue to trend until improving.
CT surgery evaluation today for revascularization. LVEF is preserved by echocardiogram.
Continue aspirin, IV heparin, IV nitro.
Hold statin with markedly elevated LFTs. Check abdominal ultrasound of these LFT abnormalities could be from [place].
Continue IV Lasix. Creatinine normal.
Original Note:
Today's Communication / Plan
-
-await CT surgery eval
-cont trop trend
-BB, ASA, heparin
Impression / Plan
-
Primary Latexer: none
PCP: none
Assessment:
Presentation with CP
cath 06/16/2024: Multivessel CAD
Elevated troponin
Abnormal EKG
Obesity
Remote former smoker
Cardiovascular testing:
Left heart cath 06/16/2024: Advanced CAD with 100% occlusion of the proximal small circumflex and proximal LAD with distal filling via well-developed right to left and faint left to left collaterals, LVEDP 35
Left main: Normal
LAD 100% occluded proximal with distal filling via well-developed [id number] collaterals and faint left to left collaterals
Ramus: RI small to medium caliber vessel widely patent
Circumflex: 100% occluded proximal. Distal vessel fills via vein right to left collaterals and left to left collaterals
RCA 30% ostial. PDA is large, posterior lateral branch large. Well-developed collaterals to mid LAD and diagonal branch. Collaterals also noted to fail circumflex branch
LVEDP 35
Echo 06/16/2024: Normal LV dimension, mid-distal anteroseptal hypokinesis, LVEF 55%. RV normal , no significant valvular heart disease
Plan:
-Patient presents to ER 06/16/2024 for evaluation of CP
-Cardiac cath 06/16/2024 Multivessel coronary artery disease (see above report). CT surgery consulted for surgical revascularization, diuresis advised and started Lasix 40 mg IV bid
-Initial trop elevated at 0.04, trending up, 8.1->49.2-> 117 @ 0637 06/17/2024. Continue to trend troponin- I ordered repeat
-EKG 06/17/2024: Normal sinus rhythm cannot rule out inferior [place], nonspecific T wave abnormality
-remains on NTG gtt @ 5. Currently reports 0/10 CP. Had 1.5/10 CP overnight. Remains on IV heparin
-started Toprol 25 mg bid
-continue asa 81mg daily
-telemetry reviewed: NSR 70-90, occ pvcs, 4 beat WCT
-FLP: LDL 146, HDL 59, TG 137, TC 232- was started on atorvastatin 80 mg daily
-AST 586 on labs 06/17/2024, ALT 62. Pt denies knowledge of liver dz/abnl labs in past. Hold statin
-?GI eval
Progress Note - Latexer
Subjective
Date of Service: June 17, 2024
pt currently CP free but was having mild (1.5/10) pain overnight
cath yest: multivessel CAD
Objective
Labs:
06/17/24 06:37
06/17/24 06:37
Labs
Hgb 14.6 g/dL (13.0-18.0) 06/17/24 06:37
Hct 41.0 % (39.0-52.0) 06/17/24 06:37
Plt Count 201 10^3/uL (130-400) 06/17/24 06:37
APTT 50.7 Sec (23.4-35.0) H 06/17/24 06:37
Sodium 133 mmol/L (135-145) L 06/17/24 06:37
Potassium 4.0 mmol/L (3.5-5.1) 06/17/24 06:37
BUN 12 mg/dl (9-20) 06/17/24 06:37
Creatinine 0.8 mg/dL (0.7-1.3) 06/17/24 06:37
Glucose 123 mg/dl (70-99) H 06/17/24 06:37
Troponins
06/16/24 06/16/24 06/17/24
10:20 16:27 00:01
Troponin I 0.046 H* 8.140 H* D 49.200 H* D
06/17/24
06:37
Troponin I 117.000 H* D
Vital Signs and I&O:
Vital Signs
Temp Pulse Resp BP Pulse Ox
97.9 F 67 16 119/80 97
06/17/24 03:19 06/17/24 06:00 06/17/24 03:19 06/17/24 03:17 06/17/24 03:19
Vital Signs
Temp Pulse Resp BP Pulse Ox
97.9 F 67 16 119/80 97
06/17/24 03:19 06/17/24 06:00 06/17/24 03:19 06/17/24 03:17 06/17/24 03:19
Intake & Output
06/15/24 06/16/24 06/17/24 06/18/24
06:59 06:59 06:59 06:59
Intake Total 900 / 900
Output Total 1500 / 1500
Balance -600 / -600
Physical Exam
Physical Exam
GEN: No distress, awake, Ox3
HEENT: supple, anicteric, mmm
LUNGS: CTA, no wheezes/rales
CV: Reg, S1/S2, no murmur
ABD: soft, BS+, NT/ND
EXT: No edema
NEURO: Gross non-focal
SKIN: No rash
--- NOTE | 2024-06-17 08:00 | PTCARENOTE ---
report received from previous RN at change of shift. Pt resting comfortably, pt denies chest pain at this time. AAOX3. ambulating in room independently. SR on telemetry heart rate 70-90s. pulses palpable. no edema. heparin and nitro gtts infusing
per orders. pt on room air, lung sounds clear. active bowel sounds. voiding in bathroom. right radial cath site CDI. pt updated on plan of care. see worklist for full nursing assessment and interventions.
[2024-06-17] MEDS: THIAMINE INJECTION 200 MG IV ×2 (08:40→20:00)
[2024-06-17] MEDS: FOLVITE 1 MG PO (08:40)
[2024-06-17] MEDS: LASIX 40 MG IV ×2 (08:40→15:36)
[2024-06-17] MEDS: TOPROL XL 25 MG PO ×2 (08:40→20:00)
[2024-06-17] MEDS: LOW STRENGTH ASPIRIN 81 MG PO (08:40)
[2024-06-17 13:42] LABS: Glycohemoglobin (HgbA1c) 5.3 % (4.0-5.6)
[2024-06-17] MEDS: HEPARIN 25000 UNITS/250 ML IV (13:58)
[2024-06-17 20:39] LABS: APTT 72.3 Sec (23.4-35.0)
--- NOTE | 2024-06-17 22:07 | PTCARENOTE ---
Assumed care of the pt @ 1900. Pt is AAOx3 SR/ST on the monitor denies chest pain Heparin and Nitro gtts infusing. Pt ambulates independently in the room. Pt updated with POC. Call patterson within reach.
[2024-06-18] VITALS (12 sets, daily range): BP systolic 99–136; BP diastolic 69–102; PULSE 108–109; O2SAT 96; BMI 31.9
[2024-06-18 03:51] LABS: Hematocrit 41.3 % (39.0-52.0); Mean Corp Hgb Conc. 36.3 g/dL (33.0-37.0); Mean Corpuscular Hgb 31.5 pg (27.0-31.0); Mean Corpuscular Volume 86.8 fL (80.0-94.0); Mean Platelet Volume 10.4 fL (7.4-10.4); Platelet Count 204 10^3/uL (130-400); Red Blood Cell Count 4.76 10^6/uL (4.70-6.10)
[2024-06-18 04:11] LABS: Blood Urea Nitrogen 20 mg/dl (9-20); Carbon Dioxide 27 mmol/L (22-30); Chloride 97 mmol/L (98-107); Estimated Creatinine Clearance 82 ml/min; Glucose 129 mg/dl (70-99); Phosphorus 3.2 mg/dl (2.5-4.5); Potassium 3.9 mmol/L (3.5-5.1); Sodium 132 mmol/L (135-145); eGFR > 60.00
[2024-06-18 04:20] LABS: Calcium 9.8 mg/dl (8.4-10.2)
--- NOTE | 2024-06-18 06:42 | W.PN.HOSP.TC ---
Today's Communication/Plan
-
see a/p
Assessment / Plan
Assessment / Plan
Physical Exam
General: No acute distress appears comfortable at this time.
HEENT: NormoCephalic, Anicteric, Moist mucous membranes, PERRLA
Respiratory: Clear; No Wheezes, Rales or Rhonchi
Cardiac: S1/S2 and Regular Rhythm; No Murmur, Rub, Gallop or Peripheral Edema
GI: Soft, Non Tender, Non Distended, Normal Bowel Sounds
Musculoskeletal: No Clubbing and No Cyanosis
Skin: Warm, No Rash or Jaundice noted
Neuro: AO x 3 conversant coherent
Psych: Calm
74-year-old male past medical history of untreated hypertension, presenting with chest pressure since last night radiating to left arm.� Former smoker.� Drinks alcohol weekly. Admitted and treated for NSTEMI. Cath found multivessel disease with
100% occlusion proximal circumflex and proximal LAD. Patient planned for surgical revascularization.
NSTEMI
Multivessel Dz
-Cardio consult appreciated
- hep nitro gtt as per cardio
-CT surgery consult appreciated
-Troponin trended to peak 117
-Received Aspirin 325 mg in ER, cont maintenance dose 81 mg daily
-ECHO appreciated EF 50-55% no valve abn's noted
Abd US appreciated suggestive Fatty Liver Disease
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
#Alcohol misuse disorder
-Drinks 3 beers 4 times a week approximately 12 beers possibly more
-Cessation advised
-MSAs screen with protocol-low suspicion for withdrawal
-thiamine, folate
#History HTN
-Patient reports history of hypertension never took meds due to not feeling any symptoms
-Compliance counseled
-nitro gtt Metoprolol Lasix as per cardiology
#Former smoker
#Obesity
DVT prophylaxis heparin gtt
Full Code
I spent a total of 40 minutes with the patient or on the floor. More than 50% of this time involved counseling and coordination of care.
Anticipated Discharge: > 48 hours
Subjective/Interval History
-
Date of Service: June 18, 2024
No acute distress appears comfortable. Reports feeling well. Denies new acute issues.
Objective Data
-
Labs:
Laboratory Results
06/17/24 06/18/24 06/18/24
20:13 03:34 09:30
WBC 13.0 H
Hgb 15.0
Hct 41.3
Plt Count 204
APTT 72.3 H 95.0 H Pending
Sodium 132 L
Potassium 3.9
Chloride 97 L
Carbon Dioxide 27
BUN 20
Creatinine 0.9
Glucose 129 H
Calcium 9.8
Vital Signs:
Vital Signs
Temp Pulse Resp BP Pulse Ox
97.8 F 83 16 118/75 96
06/18/24 03:27 06/18/24 03:27 06/18/24 03:27 06/18/24 03:27 06/18/24 03:27
I&O
06/16/24 06/17/24 06/18/24
06:59 06:59 06:59
Intake Total 900 / 900 393.6 / 393.6
Output Total 1500 / 1500
Balance -600 / -600 393.6 / 393.6
[2024-06-18] MEDS: HEPARIN 25000 UNITS/250 ML IV ×2 (07:09→20:14)
[2024-06-18] MEDS: LOW STRENGTH ASPIRIN 81 MG PO (09:23)
[2024-06-18] MEDS: THIAMINE INJECTION 200 MG IV ×2 (09:23→19:37)
[2024-06-18] MEDS: LASIX 40 MG IV ×2 (09:23→17:17)
[2024-06-18] MEDS: TOPROL XL 25 MG PO ×2 (09:23→19:37)
[2024-06-18] MEDS: FOLVITE 1 MG PO (09:23)
[2024-06-18 10:17] LABS: APTT 57.1 Sec (23.4-35.0)
[2024-06-18 12:00] LABS: APTT 67.7 Sec (23.4-35.0)
--- NOTE | 2024-06-18 12:13 | PTOTSP ---
Patient is independent with functional mobility at this time; will discharge at this time.
He would benefit from reconsult after surgical intervention as appropriate.
--- NOTE | 2024-06-18 12:55 | W.PN.CARDCBS ---
Today's Communication / Plan
-
Overall doing well with no new chest pains. Troponin trending down
Check repeat LFTs
Continue aspirin, heparin, IV nitro and metoprolol.
Await CT surgery plans but hopefully for CABG next week
If LFTs are improving will restart statin
Impression / Plan
-
Primary Senior Hr Manager: none
PCP: none
Assessment:
Presentation with CP
cath 06/16/2024: Multivessel CAD
Elevated troponin
Abnormal EKG
Obesity
Remote former smoker
Cardiovascular testing:
Left heart cath 06/16/2024: Advanced CAD with 100% occlusion of the proximal small circumflex and proximal LAD with distal filling via well-developed right to left and faint left to left collaterals, LVEDP 35
Left main: Normal
LAD 100% occluded proximal with distal filling via well-developed [id number] collaterals and faint left to left collaterals
Ramus: RI small to medium caliber vessel widely patent
Circumflex: 100% occluded proximal. Distal vessel fills via vein right to left collaterals and left to left collaterals
RCA 30% ostial. PDA is large, posterior lateral branch large. Well-developed collaterals to mid LAD and diagonal branch. Collaterals also noted to fail circumflex branch
LVEDP 35
Echo 06/16/2024: Normal LV dimension, mid-distal anteroseptal hypokinesis, LVEF 55%. RV normal , no significant valvular heart disease
Plan:
-Patient presents to ER 06/16/2024 for evaluation of CP
-Cardiac cath 06/16/2024 Multivessel coronary artery disease (see above report). CT surgery consulted for surgical revascularization, diuresis advised and started Lasix 40 mg IV bid
-Troponin peak at 117 now trending down
-EKG 06/17/2024: Normal sinus rhythm cannot rule out inferior [place], nonspecific T wave abnormality
-remains on NTG gtt @ 5. And IV hep
-started Toprol 25 mg bid
-continue asa 81mg daily
-telemetry reviewed: NSR 70-90, occ pvcs, 4 beat WCT
-FLP: LDL 146, HDL 59, TG 137, TC 232- was started on atorvastatin 80 mg daily
-Repeat LFTs today. Abdominal ultrasound with fatty liver if LFTs trending down will restart statin
Progress Note - Senior Hr Manager
Subjective
Date of Service: June 18, 2024
No new chest pains.
Objective
Labs:
06/18/24 03:34
06/18/24 03:34
Labs
Hgb 15.0 g/dL (13.0-18.0) 06/18/24 03:34
Hct 41.3 % (39.0-52.0) 06/18/24 03:34
Plt Count 204 10^3/uL (130-400) 06/18/24 03:34
APTT 67.7 Sec (23.4-35.0) H 06/18/24 11:40
Sodium 132 mmol/L (135-145) L 06/18/24 03:34
Potassium 3.9 mmol/L (3.5-5.1) 06/18/24 03:34
BUN 20 mg/dl (9-20) 06/18/24 03:34
Creatinine 0.9 mg/dL (0.7-1.3) 06/18/24 03:34
Glucose 129 mg/dl (70-99) H 06/18/24 03:34
Troponins
06/16/24 06/16/24 06/17/24
10:20 16:27 00:01
Troponin I 0.046 H* 8.140 H* D 49.200 H* D
06/17/24 06/17/24
06:37 13:21
Troponin I 117.000 H* D 76.800 H* D
Vital Signs and I&O:
Vital Signs
Temp Pulse Resp BP Pulse Ox
97.7 F 88 18 111/72 95
06/18/24 12:43 06/18/24 09:23 06/18/24 12:43 06/18/24 09:23 06/18/24 12:43
Vital Signs
Temp Pulse Resp BP Pulse Ox
97.7 F 88 18 111/72 95
06/18/24 12:43 06/18/24 09:23 06/18/24 12:43 06/18/24 09:23 06/18/24 12:43
Intake & Output
06/16/24 06/17/24 06/18/24 06/19/24
06:59 06:59 06:59 06:59
Intake Total 900 / 900 393.6 / 393.6 480 / 480
Output Total 1500 / 1500
Balance -600 / -600 393.6 / 393.6 480 / 480
Physical Exam
Physical Exam
GEN: No distress, awake, Ox3
HEENT: supple, anicteric, mmm
LUNGS: CTA, no wheezes/rales
CV: Reg, S1/S2, 1/6 syst LSB, no gallop
ABD: soft, BS+, NT/ND
EXT: No edema
NEURO: Gross non-focal
SKIN: No rash
[2024-06-18 13:54] LABS: ALT (SGPT) 58 U/L (0-50); AST (SGOT) 281 U/L (17-59); Alkaline Phosphatase 94 U/L (38-126); Direct Bilirubin 0.3 mg/dl (0.0-0.4); Total Bilirubin 1.2 mg/dl (0.2-1.3); Total Protein 6.9 g/dl (6.3-8.2)
--- NOTE | 2024-06-18 18:16 | PTCARENOTE ---
pt continues to be sr on the monitor, vss. pt offers no complaints at this time. pt educated on plan of care and pt verbalized understanding. pt ambulating in halls and in room and tolerating well. call patterson within reach.
[2024-06-18] MEDS: KCL ELIXIR 40 MEQ PO (19:37)
[2024-06-18] MEDS: MAGNESIUM SULFATE 50 IV (19:38)
[2024-06-18 20:02] LABS: APTT 81.6 Sec (23.4-35.0)
[2024-06-18] MEDS: LOPRESSOR 25 MG PO (21:40)
--- NOTE | 2024-06-18 23:43 | PTCARENOTE ---
1849 Pt HR jumped to 150-160's A fib on the monitor. Pt was up in chair talking with family NAD. Pt went back to bed and by [address] REFEREE notified and ordered 2 gram Mag IV and 20 mEq KCL PO and 25 mg Lopressor PO stat.
[2024-06-19] VITALS (8 sets, daily range): BP systolic 124–148; BP diastolic 76–107; BMI 31.8
[2024-06-19 03:59] LABS: Hemoglobin 14.6 g/dL (13.0-18.0); Mean Corp Hgb Conc. 35.6 g/dL (33.0-37.0); Mean Corpuscular Hgb 31.1 pg (27.0-31.0); Mean Corpuscular Volume 87.2 fL (80.0-94.0); Mean Platelet Volume 10.6 fL (7.4-10.4); Platelet Count 212 10^3/uL (130-400); White Blood Cell Count 11.1 10^3/uL (4.8-10.8)
[2024-06-19 04:09] LABS: APTT 107.4 Sec (23.4-35.0)
[2024-06-19 04:30] LABS: Blood Urea Nitrogen 23 mg/dl (9-20); Calcium 9.1 mg/dl (8.4-10.2); Carbon Dioxide 27 mmol/L (22-30); Chloride 99 mmol/L (98-107); Estimated Creatinine Clearance 71 ml/min; Glucose 128 mg/dl (70-99); Magnesium 2.7 mg/dl (1.6-2.3); Phosphorus 2.8 mg/dl (2.5-4.5); Sodium 132 mmol/L (135-145); eGFR > 60.00
[2024-06-19] MEDS: THIAMINE INJECTION 200 MG IV (08:19)
[2024-06-19] MEDS: LASIX 40 MG IV ×2 (08:20→16:24)
[2024-06-19] MEDS: FOLVITE 1 MG PO (08:21)
[2024-06-19] MEDS: LOW STRENGTH ASPIRIN 81 MG PO (08:21)
[2024-06-19] MEDS: TOPROL XL 25 MG PO ×2 (08:21→20:19)
[2024-06-19] MEDS: FLUSH (NSS) 1 FLUSH IV (08:22)
--- NOTE | 2024-06-19 09:25 | W.PN.CARDCBS ---
Addendum entered and electronically signed by Fany Kilpatrick DO 06/19/24 11:01:
I saw and examined the patient.
The Nursing Unit Coordinator's note was reviewed and I agree with the note.
Comment: Patient was seen and examined sitting out of bed to chair. Overall he is doing well with no events overnight. Denies chest pain or pressure. Denies shortness of breath. Tentative plan for CT surgery on 06/21/2024
General: No acute distress, AAOX3
Neck: Negative JVD
Heart: Regular, positive S1/S2, No murmur
Lungs: CTA b/l, negative wheezes/rales/rhonchi
Abd: Positive BS, NT/ND, neg rebound/rigidity/guarding
Ext: no edema
Neuro: nonfocal
Plan:
ACS/non-STEMI with peak troponin 117 found to have multivessel coronary artery disease with 100% occlusion of the LAD proximally as well as 100% occluded circumflex both filling by collaterals
-Appreciate CT surgery input; tentative plan for 06/21/2024
-Remains chest pain-free and hemodynamically stable
-Continue nitroglycerin drip at 5.
-Continue IV heparin gtt
-Continue optimization for surgery. Continue IV Lasix.
-New to Toprol 25 mg bid; eventual DU-I after CTS
-continue asa 81mg daily
-telemetry reviewed: NSR 70-90, occ pvcs, 4 beat WCT
-Keep K greater than 4, mag greater than 2
-FLP: LDL 146, HDL 59, TG 137, TC 232. Continue to monitor LFTs; atorvastatin 20 mg initiated 06/19/2024�if able will increase to high intensity statin prior to
-Follow LFT abnormalities; abdominal ultrasound with fatty liver infiltration
-Prior history of insulin resistance with hemoglobin A1c 5.8% back in 2021 however currently normal with a hemoglobin A1c of 5.3%
-CTS pre-surgery testing ordered
Will follow with you
Original Note:
Today's Communication / Plan
-
Continue IV heparin and IV nitroglycerin, ASA
Preop testing ongoing
Repeat LFTs in a.m., now on low-dose atorvastatin
Tentative CABG 06/21/2024
Impression / Plan
-
Primary Collections Assistant: none, initial consult Dr. Ramin Toledo
PCP: none
Assessment:
Presentation with CP
NSTEMI, peak trop 117
Multivessel CAD found on cath 06/16/2024
Abnormal EKG
Elevated LFTs
Hyperlipdemia
Obesity
Remote former smoker
Cardiovascular testing:
Left heart cath 06/16/2024: Advanced CAD with 100% occlusion of the proximal small circumflex and proximal LAD with distal filling via well-developed right to left and faint left to left collaterals, LVEDP 35
Left main: Normal
LAD 100% occluded proximal with distal filling via well-developed [id number] collaterals and faint left to left collaterals
Ramus: RI small to medium caliber vessel widely patent
Circumflex: 100% occluded proximal. Distal vessel fills via vein right to left collaterals and left to left collaterals
RCA 30% ostial. PDA is large, posterior lateral branch large. Well-developed collaterals to mid LAD and diagonal branch. Collaterals also noted to fail circumflex branch
LVEDP 35
Echo 06/16/2024: Normal LV dimension, mid-distal anteroseptal hypokinesis, LVEF 55%. RV normal , no significant valvular heart disease
Plan:
-Patient presents to ER 06/16/2024 for evaluation of CP.
-Ruled in with NSTEMI, Troponin peaked at 117 now trending down
-Remains chest pain free remains on NTG gtt @ 5 and IV hep
-Cardiac cath 06/16/2024 Multivessel coronary artery disease (see above report). CT surgery consulted for surgical revascularization
-Ongoing diuresis with Lasix 40 mg IV bid, started 06/17; bun 23, creat 1.0, K+ 4.0, mag 2.7
-New to Toprol 25 mg bid; eventual DU-I after CTS
-continue asa 81mg daily
-telemetry reviewed: NSR 70-90, occ pvcs, 4 beat WCT
-FLP: LDL 146, HDL 59, TG 137, TC 232. Will need eventual high intensity statin once LFTs normalize
-Abnormal LFT's, trending down. Now on low-dose atorvastatin at 20 mg, repeat 06/20. Abdominal ultrasound with fatty liver
-CTS pre-surgery testing ordered
Progress Note - Collections Assistant
Subjective
Date of Service: June 19, 2024
Patient seen and examined. Patient sitting in chair. Patient denies having chest pain or shortness of breath. Offers no specific complaints
Objective
Labs:
06/19/24 03:31
06/19/24 03:31
Labs
Hgb 14.6 g/dL (13.0-18.0) 06/19/24 03:31
Hct 41.0 % (39.0-52.0) 06/19/24 03:31
Plt Count 212 10^3/uL (130-400) 06/19/24 03:31
APTT 107.4 Sec (23.4-35.0) H 06/19/24 03:31
Sodium 132 mmol/L (135-145) L 06/19/24 03:31
Potassium 4.0 mmol/L (3.5-5.1) 06/19/24 03:31
BUN 23 mg/dl (9-20) H 06/19/24 03:31
Creatinine 1.0 mg/dL (0.7-1.3) 06/19/24 03:31
Glucose 128 mg/dl (70-99) H 06/19/24 03:31
Troponins
06/16/24 06/16/24 06/17/24
10:20 16:27 00:01
Troponin I 0.046 H* 8.140 H* D 49.200 H* D
06/17/24 06/17/24
06:37 13:21
Troponin I 117.000 H* D 76.800 H* D
Vital Signs and I&O:
Vital Signs
Temp Pulse Resp BP Pulse Ox
98.4 F 85 20 129/80 97
06/19/24 07:37 06/19/24 08:21 06/19/24 07:37 06/19/24 08:21 06/19/24 08:25
Vital Signs
Temp Pulse Resp BP Pulse Ox
98.4 F 85 20 129/80 97
06/19/24 07:37 06/19/24 08:21 06/19/24 07:37 06/19/24 08:21 06/19/24 08:25
Intake & Output
06/17/24 06/18/24 06/19/24 06/20/24
06:59 06:59 06:59 06:59
Intake Total 900 / 900 393.6 / 393.6 480 / 480
Output Total 1500 / 1500
Balance -600 / -600 393.6 / 393.6 480 / 480
Physical Exam
Physical Exam
GEN: No distress, awake, Ox3
HEENT: supple, anicteric, mmm
LUNGS: CTA, no wheezes/rales
CV: Reg, S1/S2, no murmur, rub or gallop
ABD: soft, BS+, NT/ND
EXT: No edema, clubbing or cyanosis
NEURO: Gross non-focal
SKIN: No rash, warm, dry, pink
--- NOTE | 2024-06-19 09:43 | CM ---
Addendum entered by Rae Elizalde 06/19/24 09:51:
We reviewed his alcohol use and if he was interested in exploring any formal programs to decrease or stop his alcohol use. He states he barron not feel his has an issue and declined any information on formal programs.
Original Note:
Reviewed chart. Met with Mr. Hamilton to review discharge plans. Prior to admission he resides alone in a one story home with four steps to enter. He resides at [facility]. He has been there for twelve years. Prior to admission he was
independent with ambulation and adls. He does not have any DME in the home. He has a prescription plan and uses [facility]. He states his children are supportive and will check on him. Medical work-up in progress. The discharge plan is to
return home with family support and a home visit by the Transitional Care Nurse when medically stable.
We reviewed pre-op and post-op routines. We briefly reviewed the soap instructions. We reviewed also reviewed restrictions including sternal precautions and driving restrictions. He already has the Cardiothoracic Surgery Educational Booklet. We
discussed a home visit by the Transitional Care Nurse. He is agreeable toa home visit. The O.R. date is to be determined by the surgeon
[2024-06-19] MEDS: HEPARIN 25000 UNITS/250 ML IV (10:53)
--- NOTE | 2024-06-19 14:50 | W.PN.HOSP.TC ---
Today's Communication/Plan
-
Presurgical testing
Heparin drip, nitro drip
Toprol
Aspirin
Trend LFTs
Assessment / Plan
Assessment / Plan
Physical Exam
General: No acute distress appears comfortable at this time.
HEENT: NormoCephalic, Anicteric, Moist mucous membranes, PERRLA
Respiratory: Clear; No Wheezes, Rales or Rhonchi
Cardiac: S1/S2 and Regular Rhythm; No Murmur, Rub, Gallop or Peripheral Edema
GI: Soft, Non Tender, Non Distended, Normal Bowel Sounds
Musculoskeletal: No Clubbing and No Cyanosis
Skin: Warm, No Rash or Jaundice noted
Neuro: AO x 3 conversant coherent
Psych: Calm
74-year-old male past medical history of untreated hypertension, presenting with chest pressure since last night radiating to left arm.� Former smoker.� Drinks alcohol weekly. Admitted and treated for NSTEMI. Cath found multivessel disease with
100% occlusion proximal circumflex and proximal LAD. Patient planned for surgical revascularization.
NSTEMI
Multivessel Dz
-Cardio consult appreciated
- hep, nitro gtt as per cardio
-CT surgery consult appreciated
-Troponin trended to peak 117
-Received Aspirin 325 mg in ER, cont maintenance dose 81 mg daily
-ECHO appreciated EF 50-55% no valve abn's noted
-CABG tentatively Wed
-Toprol
- CTS presurgical testing
#Acute HFmREF
-cont iv diuresis
#Alcohol abuse disorder
-Drinks 3 beers 4 times a week approximately 12 beers possibly more
-Cessation advised
-MSAs screen with protocol-low suspicion for withdrawal
-thiamine, folate
#History HTN
-Patient reports history of hypertension never took meds due to not feeling any symptoms
-Compliance counseled
-nitro gtt Metoprolol Lasix as per cardiology
#Former smoker
#Transaminitis
#Increased echogenicity in the liver, compatible with underlying hepatocellular disease,
�Continue to monitor
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
-f/u outpt
#Hyponatremia
� Mild/moderate
#Obesity
DVT prophylaxis heparin gtt
Full Code
Total time spent on today's encounter was 50 minutes which included time spent in counseling the patient/family regarding diagnosis and treatment plan as listed above, goals of care, and symptom management. Case was discussed with nursing staff,
specialists, and care coordinators/case management. All labs and imaging personally reviewed by me. Remainder the time spent in detailed review of previous records, lab data, imaging, and other medical provider documentation.
Anticipated Discharge: > 48 hours
Subjective/Interval History
-
Date of Service: June 19, 2024
No acute events, presurgical testing continued
Objective Data
-
Labs:
Laboratory Results
06/19/24
03:31
WBC 11.1 H
Hgb 14.6
Hct 41.0
Plt Count 212
APTT 107.4 H
Sodium 132 L
Potassium 4.0
Chloride 99
Carbon Dioxide 27
BUN 23 H
Creatinine 1.0
Glucose 128 H
Calcium 9.1
Vital Signs:
Vital Signs
Temp Pulse Resp BP Pulse Ox
98 F 85 18 124/90 97
06/19/24 11:38 06/19/24 12:00 06/19/24 11:38 06/19/24 11:36 06/19/24 11:38
I&O
06/18/24 06/19/24 06/20/24
06:59 06:59 06:59
Intake Total 393.6 / 393.6 480 / 480
Output Total 450 / 450
Balance 393.6 / 393.6 480 / 480 -450 / -450
Review of Systems
-
History Source: Patient
All other systems: Not reviewed unless documented
Data Reviewed
-
CT Scan: Report Reviewed by me
Ultrasound: Report Reviewed by me
Labs: Labs Reviewed by me
--- NOTE | 2024-06-19 16:08 | PTCARENOTE ---
Received pt in AM. pt OOB to chair by self. NSR on the monitor. VSS. IV Nitro gtt at 5 mcg/min. remains chest pain free. IV Heparin gtt at 1800 units/hr. call patterson within reach.
[2024-06-19] MEDS: LIPITOR 20 MG PO (17:50)
[2024-06-19] MEDS: NITROGLYCERIN PREMIX 250 IV (17:50)
--- NOTE | 2024-06-19 18:10 | W.PN.UPDATE ---
Update Note
Progress Note Update
Consent was obtained. Patient is scheduled for surgery with Dr. Reglaado on June 21.
Procedure Type:�Isolated CABG
Perioperative Outcome Estimate %
Operative Mortality 1.22%
Morbidity & Mortality 6.45%
Stroke 1.07%
Renal Failure 0.956%
Reoperation 1.76%
Prolonged Ventilation 3.74%
Deep Sternal Wound Infection 0.206%
Long Hospital Stay (>14 days) 2.97%
Short Hospital Stay (<6 days)* 56.3%
Clinical Summary
Planned Surgery: Isolated CABG, Urgent, First cardiovascular surgery
Demographics: 74 year old, male, 98kg, 170cm, BMI: 33.9 kg/m�
Lab Values: Creatinine: 1 mg/dL, Hematocrit: 41%, WBC Count: 11.1 10�/�L, Platelet Count: 621684 cells/�L
Substance Abuse: Former smoker, Alcohol use: >=8 drinks/week
Risk Factors / Comorbidities: Hypertension, Family Hx of CAD
Coronary Artery Disease: 3 vessels diseased, Proximal LAD Stenosis >=70%, Non-ST Elevation IN, IN: 1 to 7 Days
[2024-06-19] MEDS: VITAMIN B1 100 MG PO (20:19)
[2024-06-20] VITALS (11 sets, daily range): BP systolic 99–137; BP diastolic 75–94; BMI 31.5
[2024-06-20] MEDS: HEPARIN 25000 UNITS/250 ML IV ×2 (02:43→15:13)
[2024-06-20 05:11] LABS: Hematocrit 42.8 % (39.0-52.0); Hemoglobin 15.6 g/dL (13.0-18.0); Mean Corp Hgb Conc. 36.4 g/dL (33.0-37.0); Mean Corpuscular Hgb 31.6 pg (27.0-31.0); Mean Corpuscular Volume 86.8 fL (80.0-94.0); Mean Platelet Volume 10.4 fL (7.4-10.4); Platelet Count 223 10^3/uL (130-400); Red Blood Cell Count 4.93 10^6/uL (4.70-6.10); Red Cell Dist. Width 11.9 % (11.5-14.5); White Blood Cell Count 10.2 10^3/uL (4.8-10.8)
[2024-06-20 05:22] LABS: APTT 84.9 Sec (23.4-35.0)
[2024-06-20 05:47] LABS: ALT (SGPT) 34 U/L (0-50); AST (SGOT) 60 U/L (17-59); Alkaline Phosphatase 93 U/L (38-126); Blood Urea Nitrogen 21 mg/dl (9-20); Calcium 9.4 mg/dl (8.4-10.2); Carbon Dioxide 29 mmol/L (22-30); Chloride 97 mmol/L (98-107); Direct Bilirubin 0.3 mg/dl (0.0-0.4); Estimated Creatinine Clearance 71 ml/min; Glucose 131 mg/dl (70-99); Magnesium 2.4 mg/dl (1.6-2.3); Phosphorus 3.2 mg/dl (2.5-4.5); Sodium 134 mmol/L (135-145); Total Bilirubin 1.2 mg/dl (0.2-1.3); Total Protein 7.2 g/dl (6.3-8.2); eGFR > 60.00
--- NOTE | 2024-06-20 06:19 | PTCARENOTE ---
Pt NSR, VSS. Denies pain or SOB. Heparin gtt per protocol. Pt independent in the room. call patterson in reach
[2024-06-20] MEDS: LASIX 40 MG IV ×2 (08:52→15:13)
[2024-06-20] MEDS: FLUSH (NSS) 1 FLUSH IV (08:53)
[2024-06-20] MEDS: LOW STRENGTH ASPIRIN 81 MG PO (08:54)
[2024-06-20] MEDS: TOPROL XL 25 MG PO ×2 (08:54→20:55)
[2024-06-20] MEDS: FOLVITE 1 MG PO (08:54)
[2024-06-20] MEDS: VITAMIN B1 100 MG PO ×2 (08:54→20:55)
--- NOTE | 2024-06-20 10:13 | PTCARENOTE ---
received patient this am,monitor shows NSR, VSS. second ABO2 drawn and set to lab. IV heparin @ 1800units/hr and IV nitroglycerin @ 5 mcg/min without difficulties. bilat. BP taken and recorded.
--- NOTE | 2024-06-20 11:14 | CM ---
Reviewed chart. Met with Mr. Hamilton to review discharge plans. He states he is scheduled to go for surgery on Wednesday06/21/24. All of his questions and concerns have been addressed. Prior to admission he resides alone in a one story home with
four steps to enter. Prior to admission he was independent with ambulation and adls. He does not have any DME in the home. He has a prescription plan and uses [facility]. His children are supportive and will check on him. Medical work-up in
progress. The discharge plan is to return home with a home visit by the Transitional Care Nurse when medically stable.
--- NOTE | 2024-06-20 12:06 | PTCARENOTE ---
report given to CVICU, patient transferred to 2267. Keyla JACOBS aware that right BP 123/83 and left BP 99/82.
--- NOTE | 2024-06-20 12:35 | PTCARENOTE ---
pt received from previous RN, oriented x4. SR on the monitor, HR 90s. SBP 110-130s. pt on RA. ambulates, voids. PIVx2. pt offers no c/o CP or SOB. OOB in chair. BREEDING MANAGER aware of b/l UE cuff pressures. heparin and nitro gtts running as ordered.
--- NOTE | 2024-06-20 12:42 | W.PN.CARDCBS ---
Addendum entered and electronically signed by Arnulfo Hester DO 06/20/24 21:10:
I saw and examined the patient.
The Motor Vehicle Representative's note was reviewed and I agree with the note.
Comment:
Plan:
Remains compensated for CABG AM
Cont IV Heparin
Cont IV nitro
Cont ASA
Cont statin and Toprol
IV lasix diuresis
Discussed with nursing
Original Note:
Today's Communication / Plan
-
continue IV lasix, IV heparin, IV nitro, asa, lipitor, toprol
for CABG in AM
Impression / Plan
-
Primary Division Chief: none, initial consult Dr. Ramin Toledo
PCP: none
Assessment:
Presentation with CP
NSTEMI, peak trop 117
Multivessel CAD found on cath 06/16/2024
Abnormal EKG
Elevated LFTs
Hyperlipdemia
Obesity
Remote former smoker
Cardiovascular testing:
Left heart cath 06/16/2024: Advanced CAD with 100% occlusion of the proximal small circumflex and proximal LAD with distal filling via well-developed right to left and faint left to left collaterals, LVEDP 35
Left main: Normal
LAD 100% occluded proximal with distal filling via well-developed [id number] collaterals and faint left to left collaterals
Ramus: RI small to medium caliber vessel widely patent
Circumflex: 100% occluded proximal. Distal vessel fills via vein right to left collaterals and left to left collaterals
RCA 30% ostial. PDA is large, posterior lateral branch large. Well-developed collaterals to mid LAD and diagonal branch. Collaterals also noted to fail circumflex branch
LVEDP 35
Echo 06/16/2024: Normal LV dimension, mid-distal anteroseptal hypokinesis, LVEF 55%. RV normal , no significant valvular heart disease
Plan:
-Patient presented for evaluation of chest pain and ruled in for NSTEMI with troponin peaking at 117. Cardiac catheterization 06/16 with multivessel CAD. ECHO with preserved EF.
-Patient planned for CABG 06/21/2024
-Remains chest pain-free on nitroglycerin gtt at 5, asa, and IV heparin
-weight down 15 pounds from admission if accurate. continue IV lasix 40mg BID. Cr stable at 1.0.
-in SR on review of tele. continue toprol
-consider for eventual ACEI post op
-LFTs significantly improved. continue lipitor 20mg QPM. escalate post op as able. LDL 146. Abdominal ultrasound with fatty liver
-will follow post op
-d/w nursing
Progress Note - Division Chief
Subjective
Date of Service: June 20, 2024
no complaints. for OR in AM
Objective
Labs:
06/20/24 04:41
06/20/24 04:41
Labs
Hgb 15.6 g/dL (13.0-18.0) 06/20/24 04:41
Hct 42.8 % (39.0-52.0) 06/20/24 04:41
Plt Count 223 10^3/uL (130-400) 06/20/24 04:41
APTT 84.9 Sec (23.4-35.0) H 06/20/24 04:41
Sodium 134 mmol/L (135-145) L 06/20/24 04:41
Potassium 4.0 mmol/L (3.5-5.1) 06/20/24 04:41
BUN 21 mg/dl (9-20) H 06/20/24 04:41
Creatinine 1.0 mg/dL (0.7-1.3) 06/20/24 04:41
Glucose 131 mg/dl (70-99) H 06/20/24 04:41
Troponins
06/17/24
13:21
Troponin I 76.800 H* D
Vital Signs and I&O:
Vital Signs
Temp Pulse Resp BP Pulse Ox
97.7 F 109 18 120/88 98
06/20/24 11:15 06/20/24 12:00 06/20/24 11:15 06/20/24 11:11 06/20/24 11:15
Vital Signs
Temp Pulse Resp BP Pulse Ox
97.7 F 109 18 120/88 98
06/20/24 11:15 06/20/24 12:00 06/20/24 11:15 06/20/24 11:11 06/20/24 11:15
Intake & Output
06/18/24 06/19/24 06/20/24 06/21/24
07:59 07:59 07:59 07:59
Intake Total 873.6 / 873.6 1951.2 / 1951.2 94 / 94
Output Total 2044 / 2044 500 / 500
Balance 873.6 / 873.6 -93.8 / -93.8 -406 / -406
Physical Exam
Physical Exam
GEN: No distress, awake, alert, oriented x3. sitting in chair
HEENT: supple, anicteric, mmm, eomi
LUNGS: CTA B/L, no wheezes/rales
CV: Reg, S1/S2, no murmur
ABD: soft, BS+, NT/ND
EXT: No cyanosis, clubbing, edema
NEURO: Gross non-focal
SKIN: Warm, pink, dry. No rash. R wrist site c/d/i
--- NOTE | 2024-06-20 13:08 | W.PN.UPDATE ---
Update Note
Progress Note Update
CARDIAC SURGERY ATTENDING:
It was my pleasure to have a long conversation last evening with . José Manuel Hamilton. We reviewed his coronary pathology, discussed the proposed CABG procedure in great detail, reviewed the periprocedural risks (including, but not limited to, ,
stroke, [place], arrhythmia, PNA, CHARBEL/F, bleeding, and infection), discussed the expected in-hospital postprocedural course, and reviewed the expected outpatient recovery. All questions were answered to the best my abilities. The patient is agreeable
to proceed. He has been tentatively scheduled for his procedure has a second case on 06/21/2024. I anticipate CLINT to LAD and greater saphenous vein to his left circumflex system. Given his underlying hepatocellular disease/fatty
infiltration of his liver with mild increase in his transaminases, we will prepare additional blood products on hold. (2 units packed red blood cells, 2 units FFP, 2 packed platelets)
Thank you for the opportunity to participate in the care of this kind gentleman.
Please call with any questions or concerns.
Norman Regalado MD
[phone]
--- NOTE | 2024-06-20 13:57 | W.PN.HOSP.TC ---
Today's Communication/Plan
-
CABG tomorrow
NPO after MN
Heparin drip, nitro drip
Toprol
Aspirin
Trend LFTs
Assessment / Plan
Assessment / Plan
Physical Exam
General: No acute distress appears comfortable at this time.
HEENT: NormoCephalic, Anicteric, Moist mucous membranes, PERRLA
Respiratory: Clear; No Wheezes, Rales or Rhonchi
Cardiac: S1/S2 and Regular Rhythm; No Murmur, Rub, Gallop or Peripheral Edema
GI: Soft, Non Tender, Non Distended, Normal Bowel Sounds
Musculoskeletal: No Clubbing and No Cyanosis
Skin: Warm, No Rash or Jaundice noted
Neuro: AO x 3 conversant coherent
Psych: Calm
74-year-old male past medical history of untreated hypertension, presenting with chest pressure since last night radiating to left arm.� Former smoker.� Drinks alcohol weekly. Admitted and treated for NSTEMI. Cath found multivessel disease with
100% occlusion proximal circumflex and proximal LAD. Patient planned for surgical revascularization.
NSTEMI
Multivessel Dz
-Cardio consult appreciated
- hep, nitro gtt as per cardio
-CT surgery consult appreciated
-Troponin trended to peak 117
-Received Aspirin 325 mg in ER, cont maintenance dose 81 mg daily
-ECHO appreciated EF 50-55% no valve abn's noted
-CABG tentatively Wed
-Toprol
- CTS presurgical testing
-CABG in AM
-NPO after MN
#Acute HFmREF
-cont iv diuresis
#Alcohol abuse disorder
-Drinks 3 beers 4 times a week approximately 12 beers possibly more
-Cessation advised
-MSAs screen with protocol-low suspicion for withdrawal
-thiamine, folate
#History HTN
-Patient reports history of hypertension never took meds due to not feeling any symptoms
-Compliance counseled
-nitro gtt Metoprolol Lasix as per cardiology
#Former smoker
#Transaminitis
#Increased echogenicity in the liver, compatible with underlying hepatocellular disease,
�Continue to monitor
-improved with diuresis
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
-f/u outpt
#Hyponatremia
� Mild/moderate
#Obesity
DVT prophylaxis heparin gtt
Full Code
Anticipated Discharge: > 48 hours
Subjective/Interval History
-
Date of Service: June 20, 2024
no acute events
Objective Data
-
Labs:
Laboratory Results
06/20/24
04:41
WBC 10.2
Hgb 15.6
Hct 42.8
Plt Count 223
APTT 84.9 H
Sodium 134 L
Potassium 4.0
Chloride 97 L
Carbon Dioxide 29
BUN 21 H
Creatinine 1.0
Glucose 131 H
Calcium 9.4
Total Bilirubin 1.2
AST 60 H
ALT 34
Alkaline Phosphatase 93
Vital Signs:
Vital Signs
Temp Pulse Resp BP Pulse Ox
97.7 F 107 18 137/88 98
06/20/24 11:15 06/20/24 13:00 06/20/24 11:15 06/20/24 12:20 06/20/24 11:15
I&O
06/19/24 06/20/24 06/21/24
06:59 06:59 06:59
Intake Total 480 / 480 1951.2 / 1951.2 131.6 / 131.6
Output Total 2044 500 / 500
Balance 480 / 480 -93.8 / -93.8 -368.4 / -368.4
Review of Systems
-
History Source: Patient
All other systems: Not reviewed unless documented
Data Reviewed
-
CT Scan: Report Reviewed by me
Ultrasound: Report Reviewed by me
Labs: Labs Reviewed by me
--- NOTE | 2024-06-20 16:15 | PTCARENOTE ---
pt VSS, no changes in assessment. pt ambulating independently. voids. no c/o CP or SOB.
[2024-06-20] MEDS: LIPITOR 20 MG PO (17:24)
--- NOTE | 2024-06-20 21:00 | PTCARENOTE ---
assumed care of patient @ 1900. received pt sitting in chair, Aox3. VSS on RA. SR/ST on tele. +pulses - edema. Lungs clear on room air. tolerating diet. voiding clear yellow urine in urinal. Cath site CDI. clipped pt and assisted pt into shower for
full CHG shower. Now resting comfortably in bed with call patterson within reach .
[2024-06-21] VITALS (11 sets, daily range): BP systolic 80–157; BP diastolic 69–108; BMI 31.8
[2024-06-21 05:10] LABS: APTT 68.4 Sec (23.4-35.0)
[2024-06-21 05:22] LABS: Hematocrit 42.2 % (39.0-52.0); Hemoglobin 15.3 g/dL (13.0-18.0); Mean Corp Hgb Conc. 36.3 g/dL (33.0-37.0); Mean Corpuscular Volume 85.6 fL (80.0-94.0); Mean Platelet Volume 10.6 fL (7.4-10.4); Platelet Count 252 10^3/uL (130-400); Red Blood Cell Count 4.93 10^6/uL (4.70-6.10); Red Cell Dist. Width 11.9 % (11.5-14.5); White Blood Cell Count 10.7 10^3/uL (4.8-10.8)
[2024-06-21 05:38] LABS: Estimated Creatinine Clearance 64 ml/min; eGFR > 60.00
[2024-06-21 05:46] LABS: Blood Urea Nitrogen 22 mg/dl (9-20); Calcium 9.5 mg/dl (8.4-10.2); Carbon Dioxide 28 mmol/L (22-30); Chloride 95 mmol/L (98-107); Glucose 131 mg/dl (70-99); Magnesium 2.3 mg/dl (1.6-2.3); Phosphorus 3.2 mg/dl (2.5-4.5); Potassium 3.8 mmol/L (3.5-5.1); Sodium 132 mmol/L (135-145)
[2024-06-21] MEDS: HEPARIN 25000 UNITS/250 ML IV (06:57)
--- NOTE | 2024-06-21 08:11 | PTCARENOTE ---
Assumed care of patient from underground foreman RN. JADE x 3. SR on monitor. Room air. Heparin and nitro infusing. Pulses palpable. NPO maintained. Plan for day discussed.
[2024-06-21] MEDS: TOPROL XL PO (08:20)
[2024-06-21] MEDS: FOLVITE PO (08:20)
[2024-06-21] MEDS: VITAMIN B1 PO ×2 (08:20→22:19)
[2024-06-21] MEDS: LOW STRENGTH ASPIRIN PO (08:20)
[2024-06-21] MEDS: MAGNESIUM OXIDE 500 MG PO (08:56)
[2024-06-21] MEDS: PROTONIX 40 MG PO (08:56)
[2024-06-21] MEDS: LOPRESSOR 25 MG PO (08:56)
[2024-06-21] MEDS: BACTROBAN 2% OINTMENT 1 APPLIC NASAL ×2 (08:57→22:20)
[2024-06-21] MEDS: LASIX IV (09:34)
--- NOTE | 2024-06-21 09:36 | PTCARENOTE ---
Second CHG shower completed. Monitor electrodes changed after. Heparin and nitro restarted. Pre op medications administered.
--- NOTE | 2024-06-21 13:00 | PTCARENOTE ---
Transferred to CVOR in bed. Family updated.
[2024-06-21 13:03] LABS: APTT 51.2 Sec (23.4-35.0)
[2024-06-21 13:48] LABS: ACT+ - POC 115 Seconds (82-134)
--- NOTE | 2024-06-21 13:53 | W.PN.HOSP.TC ---
Today's Communication/Plan
-
CABG today
NPO
Heparin drip, nitro drip
Toprol
Aspirin
Trend LFTs
Assessment / Plan
Assessment / Plan
Physical Exam
General: No acute distress appears comfortable at this time.
HEENT: NormoCephalic, Anicteric, Moist mucous membranes, PERRLA
Respiratory: Clear; No Wheezes, Rales or Rhonchi
Cardiac: S1/S2 and Regular Rhythm; No Murmur, Rub, Gallop or Peripheral Edema
GI: Soft, Non Tender, Non Distended, Normal Bowel Sounds
Musculoskeletal: No Clubbing and No Cyanosis
Skin: Warm, No Rash or Jaundice noted
Neuro: AO x 3 conversant coherent
Psych: Calm
74-year-old male past medical history of untreated hypertension, presenting with chest pressure since last night radiating to left arm.� Former smoker.� Drinks alcohol weekly. Admitted and treated for NSTEMI. Cath found multivessel disease with
100% occlusion proximal circumflex and proximal LAD. Patient planned for surgical revascularization.
NSTEMI
Multivessel Dz
-Cardio consult appreciated
- hep, nitro gtt as per cardio
-CT surgery consult appreciated
-Troponin trended to peak 117
-Received Aspirin 325 mg in ER, cont maintenance dose 81 mg daily
-ECHO appreciated EF 50-55% no valve abn's noted
-CABG tentatively Wed
-Toprol
- CTS presurgical testing
-CABG today
-NPO a
#Acute HFmREF
-cont iv diuresis
� Defer to cardiology
#Alcohol abuse disorder
-Drinks 3 beers 4 times a week approximately 12 beers possibly more
-Cessation advised
-MSAs screen with protocol-low suspicion for withdrawal
-thiamine, folate
#History HTN
-Patient reports history of hypertension never took meds due to not feeling any symptoms
-Compliance counseled
-nitro gtt, Metoprolol, Lasix as per cardiology
#Former smoker
#Transaminitis
#Increased echogenicity in the liver, compatible with underlying hepatocellular disease,
�Continue to monitor
-improved with diuresis
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
-f/u outpt
#Hyponatremia
� Mild/moderate
�monitor with diuresis
#Obesity
DVT prophylaxis heparin gtt
Full Code
Anticipated Discharge: Within 24 hours
Subjective/Interval History
-
Date of Service: June 21, 2024
No acute events overnight
Objective Data
-
Labs:
Laboratory Results
06/21/24 06/21/24
04:44 12:08
WBC 10.7
Hgb 15.3
Hct 42.2
Plt Count 252
APTT 68.4 H 51.2 H
Sodium 132 L
Potassium 3.8
Chloride 95 L
Carbon Dioxide 28
BUN 22 H
Creatinine 1.1
Glucose 131 H
Calcium 9.5
Vital Signs:
Vital Signs
Temp Pulse Resp BP Pulse Ox
98.6 F 86 16 121/88 98
06/21/24 12:31 06/21/24 13:00 06/21/24 12:31 06/21/24 12:03 06/21/24 12:31
I&O
06/20/24 06/21/24 06/22/24
06:59 06:59 06:59
Intake Total 1.2 / 1950.2 198.8 / 198.8 82.4 / 82.4
Output Total 20440 / 220 400 / 400
Balance -93.8 / -93.8 -2001.2 / -2001.2 -317.6 / -317.6
Review of Systems
-
History Source: Patient
All other systems: Not reviewed unless documented
Data Reviewed
-
CT Scan: Report Reviewed by me
Ultrasound: Report Reviewed by me
Labs: Labs Reviewed by me
[2024-06-21 13:54] LABS: Urine Albumin 2+ (Neg - Trace); Urine Bilirubin Negative (Negative); Urine Character Clear (Clear); Urine Color Yellow; Urine Glucose Negative (Negative); Urine Ketone Negative (Negative); Urine Leukocyte Negative (Negative); Urine Nitrite Negative (Negative); Urine Occult Blood 4+ (Negative); Urine Specific Gravity 1.015 (<1.030); Urine Urobilinogen Negative (Neg - 1+)
[2024-06-21 14:26] LABS: Urine Mucus Many
[2024-06-21 14:27] LABS: Urine Amorphous Seen
[2024-06-21 15:33] LABS: ACT+ - POC 415 Seconds (82-134)
[2024-06-21 15:44] LABS: ACT+ - POC 470 Seconds (82-134)
[2024-06-21 16:20] LABS: ACT+ - POC 424 Seconds (82-134)
[2024-06-21 16:38] LABS: ACT+ - POC 464 Seconds (82-134)
[2024-06-21 17:12] LABS: B.E. - POC 4.3 mmol/L; Glucose - POC 126 mg/dl (70-99); HCO3 - POC 28 mmol/L (21-28); Hematocrit - POC 28 % PCV (42-52); Hemodilution- POC Yes; Hemoglobin Calculated - POC 9.5; Ionized Calcium - POC 0.91 mmol/L (1.15-1.33); Lactate - POC 0.34 mmol/L (0.36-0.75); PCO2 - POC 39 mmHg (35-48); PO2 - POC 357 mmHg (83-108); Potassium - POC 4.2 mmol/L (3.5-5.1); Sodium - POC 133 mmol/L (136-145); Specimen Type - POC Arterial; pH - POC 7.47 (7.35-7.45)
[2024-06-21 17:20] LABS: ACT+ - POC 478 Seconds (82-134)
[2024-06-21 17:58] LABS: B.E. - POC 5.3 mmol/L; Glucose - POC 148 mg/dl (70-99); HCO3 - POC 30 mmol/L (21-28); Hematocrit - POC 29 % PCV (42-52); Hemodilution- POC Yes; Ionized Calcium - POC 0.98 mmol/L (1.15-1.33); O2 Saturation %Calculated-POC 99.9 % (94-98); PCO2 - POC 43 mmHg (35-48); PO2 - POC 326 mmHg (83-108); Potassium - POC 4.6 mmol/L (3.5-5.1); Sodium - POC 134 mmol/L (136-145); Specimen Type - POC Arterial; pH - POC 7.45 (7.35-7.45)
[2024-06-21 18:03] LABS: ACT+ - POC 107 Seconds (82-134)
[2024-06-21 18:23] LABS: B.E. - POC 4.2 mmol/L; Glucose - POC 142 mg/dl (70-99); HCO3 - POC 29 mmol/L (21-28); Hematocrit - POC 29 % PCV (42-52); Hemodilution- POC Yes; Hemoglobin Calculated - POC 9.8; Ionized Calcium - POC 1.21 mmol/L (1.15-1.33); Lactate - POC 1.08 mmol/L (0.36-0.75); O2 Saturation %Calculated-POC 99.9 % (94-98); PCO2 - POC 41 mmHg (35-48); PO2 - POC 263 mmHg (83-108); Potassium - POC 4.1 mmol/L (3.5-5.1); Sodium - POC 136 mmol/L (136-145); Specimen Type - POC Arterial; pH - POC 7.45 (7.35-7.45)
--- NOTE | 2024-06-21 18:38 | W.CVOR.SURPR ---
CVOR Surgeon Immed Pre Op
-
I have examined this patient prior to performance of the scheduled procedure.
The patient's condition is unchanged from the time of the dictated/written History and
Physical and the patient is able to undergo the scheduled procedure.
--- NOTE | 2024-06-21 18:38 | W.IMMPOSTOP ---
Addendum entered and electronically signed by Norman Regalado MD 06/21/24 19:34:
[id number]
Addendum entered and electronically signed by Norman Regalado MD 06/21/24 18:55:
ADDITIONAL PROCEDURE:
Right thymectomy w/ removal of enlarged (1.6cm) lymph node
Original Note:
Surgical Immed Post Op Note
-
CARDIAC SURGERY OPERATIVE NOTE:
Preoperative Dx:
NSTEMI (CTNI up to 117)
Significant 2V CAD w/ 100% occlusion of LAD and 100% occlusion of LCx
Postoperative Dx:
Same
Procedures:
1) Median sternotomy
2) Takedown of CLINT (narrow pedicle)
3) Endoscopic harvest/prep of RLE GSV
4) CABG x 2 (CLINT to LAD, GSV to OM)
5) Repair of epicardial adipose avulsion
Surgeon:
Norman Regalado M.D.
Assistants:
Charley Bender P.A.-C.; assistant gm of content & delivery throughout, endoscopic harvest/prep of RLE GSV
Anesthesia:
Justice Fajardo M.D. and Ching LermaN.Shaina.
Perfusion:
Epifanio Clements, C.C.P.; XC: 88min, CPB: 108min
Findings:
CLINT was healthy conduit w/ very brisk blood flow; ELD 2.5mm
GSV was healthy conduit w/ ELD 3.5mm
LAD was not visible at any point along its course. The apical LAD was identified under epicardial adipose and tracked proximally. There were numerous overriding crossing veins that were controlled and divided. The mid-LAD was identified under
approximately 1.25cm of epicardial adipose tissue, more proximally the vessel became intramyocardial. The LAD at this midpoint location had relatively normal cornell, but was slightly small in caliber w/ ELD 1.25-1.40mm, anastomosis performed over
1.0mm intracoronary shunt w/ 8-0 prolene
There was one major OM branch that was visible on the epicardial surface. It had scattered calcifications. ELD 2.5mm
There was a large area of epicardial changes in the apical lateral aspect of the heart consistent w/ ME. The epicardial adipose tissue was profoundly friable in this area and suffered an avulsion during exposure of the OM. This was repaired w/
6-0 prolene sutures and topical hemostatic agents w/ good result.
Tear at aortic cannulation site requiring repair w/ 4-0 prolene pledgetted sutures after decannulation
Good flow in both grafts on transit-time U/S flow probe assessment
Post-ALLI: LVEF 40%, [id number] lateral wall hypokinesis, mild AI, otherwise no significant VHD
Transfusions:
1pk PLTS
Complications:
Epicardial adipose avulsion
Minor tear at aortic cannulation site
Implants:
CT x 4 (B/L pleural, inferior mediastinal, superior mediastinal)
Sternal wires x 9
Condition:
85 sinus (0.3/0.3), 87/57. CVP 15. 100%
GTTS: levophed 2, dobutamine 3, insulin 1, precedex 0.5
Stable/guarded to CVICU
[2024-06-21 19:18] LABS: Glucose - Point of Care 147 mg/dl (70-99)
[2024-06-21 19:20] LABS: B.E. 2.6 mmol/L; HCO3 27.2 mmol/L (21-28); Ionized Calcium 1.12 mMOL/L (1.15-1.33); PCO2 41 mmHg (35-48); PO2 166 mmHg (83-108); Sodium 132 mMOL/L (136-145); pH 7.43 (7.35-7.45)
[2024-06-21 19:22] LABS: Mixed Venous O2 Saturation 71.1 %
[2024-06-21] MEDS: VERSED 0.5 MG IV ×2 (19:28→19:45)
[2024-06-21 19:30] LABS: INR 1.34; PT 17.1 Sec (11.4-14.6)
--- NOTE | 2024-06-21 19:30 | PTCARENOTE ---
Addendum entered by Bill Jensen RN 06/21/24 21:54:
Pt with L radial A-line ( correction from charting R radial A-line)
Original Note:
Pt admitted at 1912 from CVOR with CVOR team escorting pt. Report received from anesthesiologist at bedside. Pt sedated, on ventilator. Pt did awaken briefly, coughed against ventilator, bit ett. Precedex gtt increased to 0.7 mcg. Versed 0.5 mg IV x
1 for continued restlessness: biting ett, used R arm to try to reach for ett. Brief eye opening (< 2 seconds) yet does not follow commands. Pt more sedated and calm after Versed 0.[address] Regalado at bedside. Instructed to keep SBP < 120 mmHG.
Levo gtt at 2 mcg/min from CVOR. Dobutamine gtt at 3 mcg/kg/min. Insulin gtt per glycemic protocol. Audible heart tones. Pt in SR. T 97.9. Warm blankets applied. CT x 4, all to -[address] outputs monitored. and prn. R radial a-line with
pulsatile waveform. Labs drawn and sent. R cordis and SLIC intact. CVP set up and will transduce to monitor. Weak B radial and DP/PT pulses. Sternal incision with aquacel dressing dry and intact. RLE juan m dressing dry and intact. Belly soft,
hypoactive bs x 4. Clemens intact, clear, yellow urine. Hourly UO monitored.
[2024-06-21 19:31] LABS: APTT 32.2 Sec (23.4-35.0)
[2024-06-21 19:38] LABS: Blood Urea Nitrogen 19 mg/dl (9-20); Estimated Creatinine Clearance 78 ml/min; Glucose 141 mg/dl (70-99)
[2024-06-21 19:41] LABS: Hematocrit 29.1 % (39.0-52.0); Hemoglobin 10.6 g/dL (13.0-18.0); Platelet Count 129 10^3/uL (130-400)
[2024-06-21] MEDS: CALCIUM GLUCONATE 100 IV (20:03)
[2024-06-21] MEDS: DILAUDID 0.5 MG IV (20:17)
[2024-06-21] MEDS: LR 250 ML IV ×2 (20:27→21:43)
[2024-06-21 20:33] LABS: Glucose - Point of Care 122 mg/dl (70-99)
[2024-06-21 21:28] LABS: Glucose - Point of Care 124 mg/dl (70-99)
--- NOTE | 2024-06-21 21:44 | PTCARENOTE ---
Pt more awake. Hypotension 79-80's systolic. LR bolus 250 mls x 1 started per order PA. Keeping SBP 90-110 mmHG per order PA. Precedex down to 0.6 mcg.
[2024-06-21] MEDS: LIPITOR PO (22:18)
[2024-06-21] MEDS: PACERONE PO ×2 (22:18→22:19)
[2024-06-21] MEDS: NSS 500 IV (22:19)
[2024-06-21] MEDS: NEURONTIN PO (22:19)
[2024-06-21] MEDS: SENOKOT-S PO (22:19)
[2024-06-21] MEDS: TYLENOL PO (22:19)
[2024-06-21] MEDS: PRECEDEX 100 IV (22:21)
[2024-06-21 23:17] LABS: Glucose - Point of Care 110 mg/dl (70-99)
[2024-06-21 23:18] LABS: Mixed Venous O2 Saturation 60.8 %
[2024-06-21 23:19] LABS: B.E. 2.3 mmol/L; HCO3 27.3 mmol/L (21-28); Ionized Calcium 1.21 mMOL/L (1.15-1.33); O2 Saturation % 99.5 % (94-98); PCO2 43 mmHg (35-48); PO2 149 mmHg (83-108); Potassium 4.4 mMOL/L (3.5-5.1); pH 7.41 (7.35-7.45)
[2024-06-21 23:27] LABS: Hematocrit 30.1 % (39.0-52.0); Platelet Count 187 10^3/uL (130-400)
--- NOTE | 2024-06-21 23:45 | PTCARENOTE ---
4 hour labs sent. PA with lab results. CPAP trial at 2330. Precedex gtt off at 2335. Pt breathing 20 br/min. Spont TV ex 350-377 mls. Sats maintained at 100% on FiO2 40%, Peep 5, PS 5. Pt readily carding utility tender and wiggles toes to command with extremities x
4. Nods appropriately to questions. Levo gtt at 5 mcg/min. Keeping SBP 90-110 mm HG.
[2024-06-21] MEDS: ANCEF 5 IV (23:51)
[2024-06-22] VITALS (64 sets, daily range): BP systolic 87–127; BP diastolic 60–111; PULSE 93; O2SAT 96–97; BMI 33.3
[2024-06-22 00:15] LABS: B.E. 2.8 mmol/L; HCO3 27.9 mmol/L (21-28); O2 Saturation % 99.4 % (94-98); PCO2 44 mmHg (35-48); PO2 160 mmHg (83-108); pH 7.41 (7.35-7.45)
[2024-06-22 00:16] LABS: O2 Therapy CPAP
[2024-06-22] MEDS: OFIRMEV 100 IV (00:21)
--- NOTE | 2024-06-22 00:35 | RESPNOTE ---
PT was extubated to a 6 L nasal cannula at this time following a successful CPAP weaning trial. PT was suctioned pre and post extubation and the PT stated his name. PT did several I/S attempts and the average was 1,000 mls. Will continue to
monitor resp status.
[2024-06-22] MEDS: LOW STRENGTH ASPIRIN 81 MG PO ×2 (01:10→08:07)
[2024-06-22] MEDS: ALBUMIN 5% 250 IV (01:18)
--- NOTE | 2024-06-22 01:30 | PTCARENOTE ---
CPAP ABG drawn and sent. PA with ABG results. OK to extubate per PA. Pt extubated with RT at 0035 to 6L/NC. Sats 100%. BBS present. No stridor. + hoarseness, cleared mostly with moistened swab. Denies respiratory distress. Breathing shallowly. C/O
pain. Receiving Ofirmev 1 GM IV. Pt noted to have labile BP with coughing. BP 70-80's systolic with coughing. UO 35 mls for 0100 hour. PA aware. Albumin 5 % 250 mls started per order of PA. Levo gtt at 4 mcg/min. Maintaining SBP 90-110 mmHG. Pt
remains awake.. Sleeping intermittently. Arouses easily to voice. Continues to follow simple commands x 4.
[2024-06-22] MEDS: LEVOPHED 250 IV (04:19)
[2024-06-22 04:22] LABS: Mixed Venous O2 Saturation 71.9 %
[2024-06-22 04:24] LABS: Hematocrit 27.8 % (39.0-52.0); Hemoglobin 10.3 g/dL (13.0-18.0); Mean Corp Hgb Conc. 37.1 g/dL (33.0-37.0); Mean Corpuscular Hgb 32.3 pg (27.0-31.0); Mean Corpuscular Volume 87.1 fL (80.0-94.0); Mean Platelet Volume 10.4 fL (7.4-10.4); Platelet Count 181 10^3/uL (130-400); Red Blood Cell Count 3.19 10^6/uL (4.70-6.10); Red Cell Dist. Width 11.8 % (11.5-14.5); White Blood Cell Count 14.5 10^3/uL (4.8-10.8)
[2024-06-22 04:26] LABS: Glucose - Point of Care 98 mg/dl (70-99)
[2024-06-22 04:26] LABS: Glucose - Point of Care 132 mg/dl (70-99)
[2024-06-22] MEDS: DILAUDID 0.25 MG IV ×2 (04:27→12:03)
--- NOTE | 2024-06-22 04:40 | W.PN.CT ---
Today's Communication / Plan
-
-pod #1
-extubated uneventfully @ 12:35 am.
-per MPT, sbp <120 overnight
-intermittent hypotension 80s with cough, ? vagal- got 750 LR and 1 Albumin
-Hg stable - 10.3 today, platelets improved from 129 to 181K today
-BMP pending
-mvO2 71.9. Drips: Dobut 3, Levo 6, Insulin
-CT outputs: 2 pleur 125/125, 2 meds 132/132 in 12/24 hrs
-wean off Dobut as tolerated
-current meds (ASA, Plavix, Lipitor, Amio, Protonix). Holding Lopressor while on Dobutamine
-encourage IS, OOB
Assessment / Plan
-
- s/p CABG x 2 (CLINT to LAD, GSV to OM); Repair of epicardial adipose avulsion; Ao cannulation site repair; Right thymectomy w/ removal of enlarged (1.6cm) lymph node on 06/21/24, pod #1
- Post-ALLI: LVEF 40%, [id number] lateral wall hypokinesis, mild AI, otherwise no significant VHD
- NSTEMI, peak trop 117
- Multivessel CAD found on cath 06/16/2024
- Class 1 obesity (BMI 32)
- Acute systolic CHF (LVEDP 35)
- HTN/HLD
- Former smoker
- EtOH (2-3 beers 4 times/wk)
- Elevated LFTs
- Family hx PR 50s
- Acute postop blood loss anemia - stable, no transfusion
- Acute postop thrombocytopenia- s/p 1 unit platelets
- Acute postop atelectasis
- Acute postop hypovolemia with subsequent hypervolemia
Discussed patient care with: Nursing and Care Team
Subjective
-
Date of Service: June 22, 2024
Objective Data
-
PT 17.1 Sec (11.4-14.6) H 06/21/24 19:13
INR 1.34 06/21/24 19:13
APTT 32.2 Sec (23.4-35.0) 06/21/24 19:13
Vital Signs
Vital Signs
Temp Pulse Resp BP Pulse Ox
99.2 F 101 20 84/73 100
06/21/24 22:00 06/21/24 23:54 06/21/24 23:54 06/21/24 23:35 06/21/24 23:54
CT Intake/Output/Weight
06/21/24 06/21/24 06/22/24
06:59 18:59 06:59
Intake Total 82.4 / 1019.3 936.9 / 1019.3
Output Total 950 / 2200 400 / 1135 735 / 1135
Balance -950 / -2001.2 -317.6 / -115.7 201.9 / -115.7
SaO2: 100
Physical Exam
-
General: Awake and AOx3
Cardiovascular: Regular rate & rhythm, No Murmurs and No Rub
Respiratory: Decreased Breath Sounds
Sternum: Stable
Incision: Clean, Dry and Intact
Extremities: No Edema (2+ DPs b/l)
Abdomen: soft, nontender, +decreased sounds, mildly distended
Data Reviewed
-
Lab Results: Results Reviewed
Medications: Active Meds Reviewed
Chest X-Ray: Report Reviewed and Image Reviewed
ECG: Report Reviewed and Image Reviewed
[2024-06-22 05:05] LABS: Blood Urea Nitrogen 20 mg/dl (9-20); Calcium 8.4 mg/dl (8.4-10.2); Carbon Dioxide 27 mmol/L (22-30); Chloride 102 mmol/L (98-107); Estimated Creatinine Clearance 70 ml/min; Glucose 128 mg/dl (70-99); Magnesium 2.4 mg/dl (1.6-2.3); Potassium 4.4 mmol/L (3.5-5.1); Sodium 135 mmol/L (135-145); eGFR > 60.00
[2024-06-22] MEDS: LR 250 ML IV (05:18)
--- NOTE | 2024-06-22 05:30 | PTCARENOTE ---
Labs drawn and sent. EKG done. Portable CXR done. BP via L radial A line 88-90's/60's. CVP 14-16. Levo gtt at 6 mcg/min. Dobut at 3 mcg. LR 250 mls given per order of PA. RUE cuff BP 100's/60-70's, MAPs 79-80's. PA made aware. L radial A line with
positional/dampened waveform at times. Line relevelled and zeroed. Arm board applied for optimal pulsatile waveform. With pulsatile waveform, A line reading 90's/60's. MAPs 70's. Cuff BP 102/72 (82). Dilaudid 0.25 mg IV at 0427 for moderate c/o pain.
[2024-06-22 05:39] LABS: Glucose - Point of Care 123 mg/dl (70-99)
[2024-06-22] MEDS: TYLENOL 1000 MG PO ×3 (05:45→21:54)
--- NOTE | 2024-06-22 06:24 | PTCARENOTE ---
Dobutamine gtt decreased to 2 mcg/kg/min per provider order.
[2024-06-22] MEDS: ROXICODONE 5 MG PO ×4 (07:20→21:56)
[2024-06-22] MEDS: DILAUDID 0.5 MG IV (07:21)
--- NOTE | 2024-06-22 07:38 | W.PN.ANS.POP ---
Anesthesia Post Operative
- Anesthesia Post Op Note
Vital Signs Stable-See Nursing Note: Yes
Airway Patent: Yes
Adequate Pain Control: Yes
Change in Mental Status: No
Current Postoperative Nausea & Vomiting: No
Anesthesia Complications: No
General Anesthetic Recall: No
Unplanned Admission: No
Post Op Hydration Adequate: Yes
[2024-06-22 07:49] LABS: B.E. - POC 2.7 mmol/L; Glucose - POC 120 mg/dl (70-99); HCO3 - POC 27 mmol/L (21-28); Hematocrit - POC 42 % PCV (42-52); Hemodilution- POC No; Hemoglobin Calculated - POC 14.1; Ionized Calcium - POC 1.12 mmol/L (1.15-1.33); O2 Saturation %Calculated-POC 99.9 % (94-98); PCO2 - POC 40 mmHg (35-48); PO2 - POC 295 mmHg (83-108); Potassium - POC 3.9 mmol/L (3.5-5.1); Sodium - POC 133 mmol/L (136-145); Specimen Type - POC Arterial; pH - POC 7.44 (7.35-7.45)
[2024-06-22 07:50] LABS: B.E. - POC 6.9 mmol/L; Glucose - POC 120 mg/dl (70-99); HCO3 - POC 30 mmol/L (21-28); Hematocrit - POC 28 % PCV (42-52); Hemodilution- POC Yes; Hemoglobin Calculated - POC 9.5; Ionized Calcium - POC 0.96 mmol/L (1.15-1.33); Lactate - POC < 0.30 mmol/L (0.36-0.75); PCO2 - POC 37 mmHg (35-48); PO2 - POC 420 mmHg (83-108); Potassium - POC 4.3 mmol/L (3.5-5.1); Sodium - POC 132 mmol/L (136-145); Specimen Type - POC Arterial; pH - POC 7.52 (7.35-7.45)
[2024-06-22 08:03] LABS: Glucose - Point of Care 108 mg/dl (70-99)
[2024-06-22] MEDS: MAGNESIUM OXIDE 500 MG PO ×2 (08:06→21:52)
[2024-06-22] MEDS: PROTONIX 40 MG PO (08:06)
[2024-06-22] MEDS: FOLVITE 1 MG PO (08:06)
[2024-06-22] MEDS: NEURONTIN 100 MG PO ×3 (08:06→21:53)
[2024-06-22] MEDS: PACERONE 200 MG PO ×3 (08:06→21:53)
[2024-06-22] MEDS: VITAMIN B1 100 MG PO ×2 (08:06→21:53)
[2024-06-22] MEDS: PLAVIX 75 MG PO (08:06)
[2024-06-22] MEDS: SENOKOT-S 1 TABLET PO ×2 (08:07→21:53)
[2024-06-22] MEDS: LIDOCAINE 4% PATCH 1 PATCH TOPICAL (08:08)
[2024-06-22] MEDS: BACTROBAN 2% OINTMENT 1 APPLIC NASAL ×2 (08:08→21:52)
[2024-06-22] MEDS: ANCEF 5 IV ×2 (08:15→15:35)
--- NOTE | 2024-06-22 08:28 | CON.INTV ---
Consultation
Consultation Request
Date/Time Consultation Requested: 06/21/2024 - 1806
Date/Time Consultation Performed: 06/22/2024824
Requesting Provider: Charley Bender PA-C
Performing Provider: Dr. Abbott
Reason for Consultation: s/p CABG x2
Medical History
-
Chief Complaint: Chest pain
History of Present Illness:
74-year-old male former tobacco smoker with a past medical history of hypertension and alcohol use disorder who presents with chest pain. Initial EKG showed anterior T wave inversions with inferior ST depressions and ST elevation seen in aVR.
Heparin drip started and cardiology consulted - left heart catheterization was performed on 06/16, showing advanced CAD with 100% occlusion of the proximal LCx + proximal LAD with distal vessel filling via a well-developed right to left and faint
left to left collaterals. Also in low normal to mildly reduced LVEF at 45-5% with increased LVEDP at 35 mmHg. Cardiothoracic surgery consulted. Patient was consented for and a CABG x 2 was performed on 06/21/2024. Patient was transferred to the
CVICU postoperatively and Pump Servicer Supervisor services consulted for additional management/recommendations.
When I saw the patient today, he was resting in bed in no acute distress. Heart rate 107, BP 103/80 and saturating 94% on 1 L/min. Currently on insulin drip at 2.3 units/hr and dobutamine drip at 2 mcg/kg/min. Chest tubes x [address] His main
complaint is chest discomfort. He denies WALTERS, SOB, fevers or chills.
PMHx: Hypertension, former tobacco smoker, alcohol use disorder, history of asthma
PSHx: Bilateral cataract extraction with lens implants
Past Medical History
Past Medical History: Other (Above as per HPI)
Past Surgical History: Other (Above as per HPI)
Social History
Tobacco: Former Smoker (61-bggb-xnri history, quit at age 34)
Alcohol: Daily (Drinks 3 beers about 4 times a week)
Drug: None
Personal:
Living: Alone
Employment: Retired
Family History
Family History: CAD (Father), Diabetes (Mother), Hypertension (Father + mother) and Other (Father: Hyperlipidemia + heavy tobacco smoker)
Allergies / Home Medications
Allergies
Allergy/AdvReac Type Severity Reaction Status Date / Time
No Known Allergies Allergy Unverified 07/18/21 17:15
Home Medications
�Medication �Instructions �Recorded �Confirmed �Last Taken �Type
ibuprofen 200 mg tablet (Advil) 200 mg PO Q6HPRN PRN mild pain 06/16/24 06/16/24 06/16/24 History
Review of Systems
-
History Source: Patient
All other systems: Negative unless noted
Vitals / Labs / Diagnostic Testing
Vital Signs
Temp Pulse Resp BP Pulse Ox
98.6 F 100 18 110/75 97
06/22/24 09:03 06/22/24 08:35 06/22/24 09:03 06/22/24 08:30 06/22/24 09:03
Lab Data
06/22/24 03:55
06/22/24 03:55
Laboratory Results
06/21/24 06/21/24 06/21/24
12:08 19:13 23:02
PT 17.1 H
INR 1.34
APTT 51.2 H 32.2
pH 7.43 7.41
pCO2 41 43
pO2 166 H 149 H
HCO3 27.2 27.3
O2 Delivery Level
06/22/24
00:05
PT
INR
APTT
pH 7.41
pCO2 44
pO2 160 H
HCO3 27.9
O2 Delivery Level Cpap
Diagnostic Testing:
Physical Exam
-
HEENT: Normocephalic and Anicteric
Cardiovascular: S1/S2, Rub and Peripheral Edema (negative)
Respiratory: Wheeze (negative), Rales (Bibasilar), Rhonchi (negative), Non-Labored Respirations and Other (Diminished breath sounds bilaterally)
GI: Soft, Distended (Abdominal obesity), Non Tender and Normal Bowel Sounds
Neurology: AO x 3 and Tremors (negative)
Skin: Warm and Dry
General: Respiratory Distress (negative), Comfortable, Fever (negative) and Chills (negative)
Assessment
-
Assessment: 74-year-old male former tobacco smoker with a past medical history of hypertension and alcohol use disorder who presents with chest pain. Initial EKG showed anterior T wave inversions with inferior ST depressions and ST elevation seen
in aVR. Heparin drip started and cardiology consulted - left heart catheterization was performed on 06/16, showing advanced CAD with 100% occlusion of the proximal LCx + proximal LAD with distal vessel filling via a well-developed right to left and
faint left to left collaterals. Also in low normal to mildly reduced LVEF at 45-5% with increased LVEDP at 35 mmHg. Cardiothoracic surgery consulted. Patient was consented for and a CABG x 2 was performed on 06/21/2024. Patient was transferred to
the CVICU postoperatively and Pump Servicer Supervisor services consulted for additional management/recommendations.
Chronic conditions [employer]: Hypertension, former tobacco smoker, alcohol use disorder, history of asthma
Impression:
#Two-vessel CAD with 100 send occlusion of both pLAD + pLCx with NSTEMI s/p CABG x 2 (POD #1)
#Repair of epicardial adipose avulsion (POD #1)
#s/p right thymectomy with removal of enlarged lymph node (1.6 cm - POD #1)
#Acute anemia due to above
#Alcohol use disorder
#Former tobacco smoker
#Hypertension
#History of asthma
Plan:
Patient was successfully extubated on 06/22/2024 shortly after 1AM and is currently saturating 93-94% on 1 L/min nasal cannula, breathing comfortably
Maintain SpO2 >90-94%
prn nebulized bronchodilators - not currently bronchospastic
Encourage incentive spirometer use as tolerated given that he has chest discomfort
Pulmonary artery catheter parameters will be followed
Pressors/antihypertensive/inotropes/diuretics will be provided as needed
Maintain MAP>65
Replete electrolytes with K>4, Mg>2
Monitor chest tube output (bilateral pleural chest tubes + mediastinal chest tubes x 2)
Monitor hemoglobin
Monitor platelet count and coags
Transfuse blood products as needed to maintain Hb>7g/dL, plt>50k (given post-operative status)
CT surgery managing chest tubes
Monitor blood sugar to maintain euglycemia with goal BG 110-140
Insulin drip per protocol
Aspiration precautions
DVT prophylaxis
Early nutrition
Early mobilization
Pump Servicer Supervisor services will continue to follow along while patient remains in the CVICU.
Critical care statement: A total of 41 minutes of critical care time was provided for this patient today. This includes management of ventilator, spontaneous breathing trial, arterial blood gases, pressors, of unstable vital signs, evaluation of the
patient at bedside, reviewing the patient's pertinent medical records including radiographs, microbiology, laboratory evaluations, and discussion with primary team and critical care nursing.
--- NOTE | 2024-06-22 08:39 | PTCARENOTE ---
Rec'd pt this shift awake and alert. Pt with RT IJ cordis and Slic. Pt with left radial a-line, very positional. Pt on Dobutamine at 2mcg/kg/min, Levophed at 6mcg/min and Insulin. Pt NSR on monitor, 2l n/c oxygen. Pulse ox 99%. Lungs clear,
coughing up thick white secretions. Pt encouraged coughing and deep breathing and use of IS. Insulin drip titrated according to glycemic protocol. Levo decreased to 5mcg/min to keep SBP 90-100. Pain medications given this am for c/o sternal pain. Pt
sleeping comfortably now. See worklist for VS/I and O and assessments.
--- NOTE | 2024-06-22 09:24 | W.PN.CARDCBS ---
Addendum entered and electronically signed by Arnulfo Hester DO 06/22/24 18:22:
I saw and examined the patient.
The Web Marketing Manager's note was reviewed and I agree with the note.
Comment:
Plan:
HPI/additional hx: Patient presented for evaluation of chest pain and ruled in for NSTEMI with troponin peaking at 117. Cardiac catheterization 06/16 with multivessel CAD. ECHO with preserved EF.
-s/p CABG x 2 CLINT to LAD, GSV to OM; Repair of epicardial adipose avulsion; Ao cannulation site repair; Right thymectomy with removal of enlarged 1.6cm lymph node 06/21/24
-post ALLI with EF 40%, mid to apical lateral wall hypokinesis, mild AI
Some confusion this am, cont to monitor MS
Wean IV Dobutamine and Levophed as bp will allow
Monitor H/H
Cont DAPT
Remains sinus
Discussed with CT surgery.
Discussed with nursing.
Original Note:
Today's Communication / Plan
-
continue post op care
Impression / Plan
-
Primary Seamer Elastic Band: none, initial consult Dr. Ramin Toledo
PCP: none
Assessment:
Presentation with CP
NSTEMI, peak trop 117
Multivessel CAD found on cath 06/16/2024
s/p CABG x 2 CLINT to LAD, GSV to OM; Repair of epicardial adipose avulsion; Ao cannulation site repair; Right thymectomy with removal of enlarged 1.6cm lymph node 06/21/24
Elevated LFTs
Hyperlipidemia
Obesity
Remote former smoker
Cardiovascular testing:
Left heart cath 06/16/2024: Advanced CAD with 100% occlusion of the proximal small circumflex and proximal LAD with distal filling via well-developed right to left and faint left to left collaterals, LVEDP 35
Left main: Normal
LAD 100% occluded proximal with distal filling via well-developed [id number]-km-cwneb collaterals and faint left to left collaterals
Ramus: RI small to medium caliber vessel widely patent
Circumflex: 100% occluded proximal. Distal vessel fills via vein right to left collaterals and left to left collaterals
RCA 30% ostial. PDA is large, posterior lateral branch large. Well-developed collaterals to mid LAD and diagonal branch. Collaterals also noted to fail circumflex branch
LVEDP 35
Echo 06/16/2024: Normal LV dimension, mid-distal anteroseptal hypokinesis, LVEF 55%. RV normal , no significant valvular heart disease
Plan:
-Patient presented for evaluation of chest pain and ruled in for NSTEMI with troponin peaking at 117. Cardiac catheterization 06/16 with multivessel CAD. ECHO with preserved EF.
-s/p CABG x 2 CLINT to LAD, GSV to OM; Repair of epicardial adipose avulsion; Ao cannulation site repair; Right thymectomy with removal of enlarged 1.6cm lymph node 06/21/24
-post ALLI with EF 40%, mid to apical lateral wall hypokinesis, mild AI
-mildly confused this morning, likely sedation related, follow
-extubated
-with some hypotension overnight. on dobut @2, levo@5. wean as able
-wean supp O2 as able
-hgb 10.3. continue asa, plavix
-LDL 146. continue lipitor. Abdominal ultrasound with fatty liver
-eventual GDMT as able
-continue post op care
-d/w nursing
Progress Note - Seamer Elastic Band
Subjective
Date of Service: June 22, 2024
with some confusion, talking about missing the basketball game. reports pain adequately controlled
Objective
Labs:
06/22/24 03:55
06/22/24 03:55
Labs
Hgb 10.3 g/dL (13.0-18.0) L 06/22/24 03:55
Hct 27.8 % (39.0-52.0) L 06/22/24 03:55
Plt Count 181 10^3/uL (130-400) 06/22/24 03:55
PT 17.1 Sec (11.4-14.6) H 06/21/24 19:13
INR 1.34 06/21/24 19:13
APTT 32.2 Sec (23.4-35.0) 06/21/24 19:13
Sodium 135 mmol/L (135-145) 06/22/24 03:55
Potassium 4.4 mmol/L (3.5-5.1) 06/22/24 03:55
BUN 20 mg/dl (9-20) 06/22/24 03:55
Creatinine 1.0 mg/dL (0.7-1.3) 06/22/24 03:55
Glucose 128 mg/dl (70-99) H 06/22/24 03:55
Vital Signs and I&O:
Vital Signs
Temp Pulse Resp BP Pulse Ox
98.6 F 100 18 110/75 97
06/22/24 09:03 06/22/24 08:35 06/22/24 09:03 06/22/24 08:30 06/22/24 09:03
Vital Signs
Temp Pulse Resp BP Pulse Ox
98.6 F 100 18 110/75 97
06/22/24 09:03 06/22/24 08:35 06/22/24 09:03 06/22/24 08:30 06/22/24 09:03
Intake & Output
06/20/24 06/21/24 06/22/24 06/23/24
07:59 07:59 07:59 07:59
Intake Total 1951.2 / 1951.2 198.8 / 219.4 1868.7 / 1868.7 292.4 / 292.4
Output Total 2044 / 2044 2200 / 2200 1557 / 1557 180 / 180
Balance -93.8 / -93.8 -2001.2 / -1980.6 311.7 / 311.7 112.4 / 112.4
Physical Exam
Physical Exam
GEN: No distress, awake, alert, oriented x3. confused at times. on supp O2
HEENT: supple, anicteric, mmm, eomi
LUNGS: Dminished BS B/L, no wheezes
CV: Reg, S1/S2, no murmur. +rub
ABD: hypoactive BS
EXT: No cyanosis, clubbing, edema
NEURO: Gross non-focal
SKIN: Warm, pink, dry. No rash. Sternotomy dressing c/d/i. CTs in place
: gabriela
[2024-06-22 10:27] LABS: Glucose - Point of Care 94 mg/dl (70-99)
[2024-06-22 11:58] LABS: Glucose - Point of Care 111 mg/dl (70-99)
--- NOTE | 2024-06-22 12:43 | PTCARENOTE ---
Levophed weaned to off. Clemens catheter d/c'd. A-line d/c'd. Pt assisted OOB up in chair with 2 person assist, Pt tolerated well. Pt remains on Dobutamine at 2mcg/kg/min.
[2024-06-22] MEDS: TORADOL 15 MG IV (14:04)
[2024-06-22 14:53] LABS: Glucose - Point of Care 113 mg/dl (70-99)
--- NOTE | 2024-06-22 14:56 | CM ---
Addendum entered by SAMPSON Durham 06/22/24 16:10:
Met w/ patient and family member at bedside. Pt. POD#1, feels well.
Reviewed DC plan for home w/ CT Transitional Care RN.
Will cont. to follow.
Original Note:
CM following for DC planning needs.
Patient POD#[address] Surg[address]
At this time, anticipate home w/ CT Transitional Care RN.
CM to follow.
[2024-06-22] MEDS: CORDARONE 103 MG IV (15:55)
--- NOTE | 2024-06-22 15:58 | PTCARENOTE ---
Pt placed back to bed. Amiodarone bolus given at this time.
[2024-06-22] MEDS: NSS IV (16:22)
[2024-06-22 17:15] LABS: Glucose - Point of Care 102 mg/dl (70-99)
[2024-06-22] MEDS: LIPITOR 20 MG PO (17:51)
[2024-06-22] MEDS: DOBUTREX 500 MG 250 IV (18:11)
[2024-06-22 18:28] LABS: Glucose - Point of Care 104 mg/dl (70-99)
--- NOTE | 2024-06-22 20:00 | PTCARENOTE ---
Report received from Idalmis Mortensen RN. Walking rounds done. Pt sitting in chair. Helped back to bed with 2 RN assist. Awake, alert, oriented x 4. Speech clear. Equal strength x 4 extremities. Room air sat in bed 92%. 2L/NC applied in bed. Sats up to 96%.
BBS present. Decreased t/o jamee to bases. CDB and IA encouraged. IS peak 750 mls. Audible heart tones. + rub. Normotensive. Dobutamine gtt at 2 mcg/kg/min. Transducing CVP via SLIC cAth to RIJ. For pulse and wound assessments, see flowsheets. CT x 4
to -20 cm suction. Belly soft, nontender. Hypoactive bs x 4. Passing some flatus. Voided 150 msl clear, jamison urine x 1. Ongoing plan of care.
--- NOTE | 2024-06-22 22:00 | PTCARENOTE ---
Roxicodone 5 mg po for c/o moderate sternal pain. Scheduled meds given. Pt in SR-ST. O2 sat 96% on 2L/NC.
[2024-06-23] VITALS (29 sets, daily range): BP systolic 95–133; BP diastolic 57–82; PULSE 91; O2SAT 93–94; BMI 33.6
--- NOTE | 2024-06-23 02:00 | PTCARENOTE ---
Pt sleeping. Dobutamine gtt remains at 2 mcg. Pt in SR 90's.
[2024-06-23 04:58] LABS: Mixed Venous O2 Saturation 62.1 %
--- NOTE | 2024-06-23 05:00 | PTCARENOTE ---
Toradol 15 mg IV, Roxicodone 5 mg po and Tylenol scheduled given for severe c/o sternal pain.
[2024-06-23 05:01] LABS: Hematocrit 24.5 % (39.0-52.0); Hemoglobin 8.8 g/dL (13.0-18.0); Mean Corp Hgb Conc. 35.9 g/dL (33.0-37.0); Mean Corpuscular Hgb 32.5 pg (27.0-31.0); Mean Corpuscular Volume 90.4 fL (80.0-94.0); Mean Platelet Volume 10.7 fL (7.4-10.4); Platelet Count 173 10^3/uL (130-400); Red Blood Cell Count 2.71 10^6/uL (4.70-6.10); Red Cell Dist. Width 12.1 % (11.5-14.5); White Blood Cell Count 15.6 10^3/uL (4.8-10.8)
[2024-06-23] MEDS: ROXICODONE 5 MG PO ×2 (05:01→12:24)
[2024-06-23] MEDS: TYLENOL 1000 MG PO ×3 (05:01→21:08)
[2024-06-23] MEDS: TORADOL 15 MG IV (05:02)
[2024-06-23 05:24] LABS: Blood Urea Nitrogen 19 mg/dl (9-20); Calcium 8.3 mg/dl (8.4-10.2); Carbon Dioxide 31 mmol/L (22-30); Chloride 97 mmol/L (98-107); Estimated Creatinine Clearance 80 ml/min; Glucose 130 mg/dl (70-99); Magnesium 2.6 mg/dl (1.6-2.3); Potassium 4.4 mmol/L (3.5-5.1); Sodium 132 mmol/L (135-145); eGFR > 60.00
--- NOTE | 2024-06-23 06:00 | PTCARENOTE ---
LIZZIE NICHOLS cath d/c'ed per CVICU protocol. Central line dressing change done. Pt given CHG bath. Pt helped to standing with 2 RN assist. Voided 325 mls jamison, clear urine. Pt then helped to chair. Dobutamine gtt decreased to 1 mcg/kg/min per provider
order.
--- NOTE | 2024-06-23 07:23 | W.PN.CT ---
Today's Communication / Plan
-
-pod #2
-no issues overnight
-drips: Dobut decreased to 1 at 6:15 am. mvO2 62.1
-CT outputs: 2 meds 65/155, 2 pleur 155/455 in 12/24 hrs
-d/c slic
-wean off O2 as tolerated
-wean off Dobut as tolerated
-current meds (ASA, Plavix, Lipitor, Amio, Protonix). Holding BB while on Dobutamine. Consider starting Coreg once off Dobut (EF 40%)
-encourage IS, OOB
Assessment / Plan
-
- s/p CABG x 2 (CLINT to LAD, GSV to OM); Repair of epicardial adipose avulsion; Ao cannulation site repair; Right thymectomy w/ removal of enlarged (1.6cm) lymph node on 06/21/24, pod #2
- Post-ALLI: LVEF 40%, [id number]-bs-[id number] lateral wall hypokinesis, mild AI, otherwise no significant VHD
- NSTEMI, peak trop 117
- Multivessel CAD found on cath 06/16/2024
- Class 1 obesity (BMI 32)
- Acute systolic CHF (LVEDP 35)
- HTN/HLD
- Former smoker
- EtOH (2-3 beers 4 times/wk)
- Elevated LFTs
- Family hx [place] 50s
- Acute postop blood loss anemia - stable, no transfusion
- Acute postop thrombocytopenia- s/p 1 unit platelets
- Acute postop atelectasis
- Acute postop hypovolemia with subsequent hypervolemia
Discussed patient care with: Nursing and Care Team
Subjective
-
Date of Service: June 23, 2024
Objective Data
-
PT 17.1 Sec (11.4-14.6) H 06/21/24 19:13
INR 1.34 06/21/24 19:13
APTT 32.2 Sec (23.4-35.0) 06/21/24 19:13
Vital Signs
Vital Signs
Temp Pulse Resp BP Pulse Ox
98.7 F 91 17 104/70 96
06/23/24 00:00 06/23/24 01:00 06/23/24 01:00 06/23/24 01:00 06/23/24 01:[address]
CT Intake/Output/Weight
06/22/24 06/22/24 06/23/24
06:59 18:59 06:59
Intake Total 1735.8 / 1818.2 2109.0 / 2210.6 101.6 / 2210.6
Output Total 1127 / 1527 615 / 980 365 / 980
Balance 608.8 / 291.2 1494.0 / 1230.6 -263.4 / 1230.6
SaO2: 96
Physical Exam
-
General: Awake and AOx3
Cardiovascular: Regular rate & rhythm, No Murmurs and Rub
Respiratory: Decreased Breath Sounds
Sternum: Stable
Incision: Clean, Dry and Intact
Extremities: No Edema
Abdomen: soft, nontender, mildly distended, + bowel sounds, no nausea
Data Reviewed
-
Lab Results: Results Reviewed
Medications: Active Meds Reviewed
Chest X-Ray: Report Reviewed and Image Reviewed
ECG: Report Reviewed and Image Reviewed
--- NOTE | 2024-06-23 08:19 | W.PN.INTV ---
Today's Communication / Plan
Recommendations
Up OOB as tolerated
Wean down on dobutamine drip as tolerated while trending MVO2 with goal >60�70
Pain control
Cardiac rehab consult
Goal SpO2 >90-94%
Goal BG 110-140
Call Circuit Worker services will continue to follow along while he remains in the CVICU; once transferred to CVICU�telemetry status then we will sign off.
Assessment
-
Assessment: 74-year-old male former tobacco smoker with a past medical history of hypertension and alcohol use disorder who presents with chest pain. Initial EKG showed anterior T wave inversions with inferior ST depressions and ST elevation seen
in aVR. Heparin drip started and cardiology consulted - left heart catheterization was performed on 06/16, showing advanced CAD with 100% occlusion of the proximal LCx + proximal LAD with distal vessel filling via a well-developed right to left and
faint left to left collaterals. Also in low normal to mildly reduced LVEF at 45-5% with increased LVEDP at 35 mmHg. Cardiothoracic surgery consulted. Patient was consented for and a CABG x 2 was performed on 06/21/2024. Patient was transferred to
the CVICU postoperatively and Call Circuit Worker services consulted for additional management/recommendations.
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
Impression:
#Two-vessel CAD with 100 send occlusion of both pLAD + pLCx with NSTEMI s/p CABG x 2 (POD #2)
#Repair of epicardial adipose avulsion (POD #2)
#s/p right thymectomy with removal of enlarged lymph node (1.6 cm - POD #2)
#Acute anemia due to above
#Alcohol use disorder
#Former tobacco smoker
#Hypertension
#History of asthma
Plan:
Patient was successfully extubated on 06/22/2024 shortly after 1AM and is currently saturating 96-97% on RA, breathing comfortably
Maintain SpO2 >90-94%
prn nebulized bronchodilators - not currently bronchospastic
Encourage incentive spirometer use as tolerated given that he has chest discomfort
Pulmonary artery catheter parameters will be followed
Pressors/antihypertensive/inotropes/diuretics will be provided as needed
Maintain MAP>65
Replete electrolytes with K>4, Mg>2
Monitor chest tube output (bilateral pleural chest tubes + mediastinal chest tubes x 2)
Monitor hemoglobin
Monitor platelet count and coags
Transfuse blood products as needed to maintain Hb>7g/dL, plt>50k (given post-operative status)
CT surgery managing chest tubes
Monitor blood sugar to maintain euglycemia with goal BG 110-140
Insulin drip now DC'd � recommend ISS to maintain BG goal as above
Aspiration precautions
DVT prophylaxis
Early nutrition
Early mobilization
Call Circuit Worker services will continue to follow along while patient remains in the CVICU; currently on dobutamine drip.
Critical care statement: A total of 38 minutes of critical care time was provided for this patient today. This includes management of ventilator, spontaneous breathing trial, arterial blood gases, pressors, of unstable vital signs, evaluation of the
patient at bedside, reviewing the patient's pertinent medical records including radiographs, microbiology, laboratory evaluations, and discussion with primary team and critical care nursing.
Subjective Dataa
Subjective Data
Date of Service:
Date of Service: June 23, 2024
Chief Complaint: Call Circuit Worker Follow Up
Subjective:
Patient seen and evaluated today at bedside. Currently on room air breathing comfortably, saturating 97%. Heart rate 101, BP 110/73, and on dobutamine at 1 mcg/kg/min. Has chest pain but it is much better than yesterday. Denies SOB, WALTERS, fevers
or chills.
Review of Systems
General: Other (Negative unless mentioned above)
Objective Data
Data Reviewed
Vital Signs / I&O / Oxygen:
Vital Signs
Temp Pulse Resp BP Pulse Ox
98.7 F 99 16 102/65 97
06/23/24 16:05 06/23/24 18:03 06/23/24 16:05 06/23/24 18:03 06/23/24 16:30
Intake and Output
06/22/24 06/23/24 06/24/24
06:59 06:59 06:59
Intake Total 1818.2 / 1818.2 2401.1 / 2401.1 627.0 / 627.0
Output Total 1527 / 1527 1310 / 1310 740 / 740
Balance 291.2 / 291.2 1091.1 / 1091.1 -113.0 / -113.0
SaO2 [CPAP] 100
SaO2 [SIMV] 100
SaO2 97
Nasal Cannula flow liters per 2
minute
Physical Exam
General: Respiratory Distress (negative), Comfortable, Chills (negative) and Sweats (negative)
HEENT: Normocephalic and Anicteric
Cardiovascular: S1-S2 and Peripheral Edema (negative)
Respiratory: Wheeze (negative), Crackles (Bibasilar), Rhonchi (negative), Non-Labored Respirations and Other (Diminished breath sounds bilaterally)
GI: Soft, Non Distended, Non Tender and Normal Bowel Sounds
Neurology: AO x 3 and Tremors (negative)
Skin: Warm, Dry, Cyanosis (negative) and Jaundice (negative)
Labs/Micro/Reports
Lab Data
06/23/24 04:49
06/23/24 04:49
--- NOTE | 2024-06-23 08:20 | PTCARENOTE ---
Patient received from signal engineer resting oob in chair, AAO X 3, states pain controlled at this time w/recent medication administration. NSR via cm, SaO2 @ 93% on RA. RIJ Cordis w/kvo and dobutamine infusing. Mediastinal chest tubes x 2,
Y-connected, L and R pleural chest tubes Y-connected to separate pleurevac - no air leaks or crepitus noted on -20cm suction. All procedural sites stable. Breakfast offered, patient refused at this time. Patient updated to plan of care for the day,
in agreement. See work list for full assessment, interventions performed, and intravenous infusions and titrations.
[2024-06-23] MEDS: LASIX 40 MG IV (08:32)
[2024-06-23] MEDS: NEURONTIN 100 MG PO ×3 (08:32→21:08)
[2024-06-23] MEDS: PACERONE 200 MG PO ×3 (08:32→21:08)
[2024-06-23] MEDS: SENOKOT-S 1 TABLET PO ×2 (08:32→21:01)
[2024-06-23] MEDS: PROTONIX 40 MG PO (08:32)
[2024-06-23] MEDS: FOLVITE 1 MG PO (08:32)
[2024-06-23] MEDS: LIDOCAINE 4% PATCH TOPICAL (08:33)
[2024-06-23] MEDS: VITAMIN B1 100 MG PO ×2 (08:33→21:08)
[2024-06-23] MEDS: BACTROBAN 2% OINTMENT 1 APPLIC NASAL ×2 (08:33→21:01)
[2024-06-23] MEDS: LOW STRENGTH ASPIRIN 81 MG PO (08:33)
[2024-06-23] MEDS: PLAVIX 75 MG PO (08:33)
--- NOTE | 2024-06-23 09:14 | W.PN.CARDCBS ---
Addendum entered and electronically signed by Lamberto Nassar MD 06/23/24 11:46:
I saw and examined the patient.
The Software Design Manager's note was reviewed and I agree with the note.
Comment:
GEN: No distress, awake, Ox3
HEENT: supple, anicteric, mmm
LUNGS: CTA, no wheezes/rales
CV: Reg, S1/S2, 1/6 syst LSB, no gallop
ABD: soft, BS+, NT/ND
EXT: No edema
NEURO: Gross non-focal
SKIN: No rash
Plan:
Overall doing well status post CABG. Wean dobutamine.
Hemoglobin stable at 8.8 continue aspirin, Plavix, and atorvastatin.
Initiate amiodarone. Creatinine normal.
Original Note:
Today's Communication / Plan
-
continue post op care
wean dobut
GDMT of CM as able
check EKG
Impression / Plan
-
Primary Specialty Manufacturing Supervisor: none, initial consult Dr. Ramin Toledo
PCP: none
Assessment:
Presentation with CP
NSTEMI, peak trop 117
Multivessel CAD found on cath 06/16/2024
s/p CABG x 2 CLINT to LAD, GSV to OM; Repair of epicardial adipose avulsion; Ao cannulation site repair; Right thymectomy with removal of enlarged 1.6cm lymph node 06/21/24
Elevated LFTs
Hyperlipidemia
Obesity
Remote former smoker
Cardiovascular testing:
Left heart cath 06/16/2024: Advanced CAD with 100% occlusion of the proximal small circumflex and proximal LAD with distal filling via well-developed right to left and faint left to left collaterals, LVEDP 35
Left main: Normal
LAD 100% occluded proximal with distal filling via well-developed [id number] collaterals and faint left to left collaterals
Ramus: RI small to medium caliber vessel widely patent
Circumflex: 100% occluded proximal. Distal vessel fills via vein right to left collaterals and left to left collaterals
RCA 30% ostial. PDA is large, posterior lateral branch large. Well-developed collaterals to mid LAD and diagonal branch. Collaterals also noted to fail circumflex branch
LVEDP 35
Echo 06/16/2024: Normal LV dimension, mid-distal anteroseptal hypokinesis, LVEF 55%. RV normal , no significant valvular heart disease
Plan:
-Patient presented for evaluation of chest pain and ruled in for NSTEMI with troponin peaking at 117. Cardiac catheterization 06/16 with multivessel CAD. ECHO with preserved EF.
-s/p CABG x 2 CLINT to LAD, GSV to OM; Repair of epicardial adipose avulsion; Ao cannulation site repair; Right thymectomy with removal of enlarged 1.6cm lymph node 06/21/24
-post ALLI with EF 40%, mid to apical lateral wall hypokinesis, mild AI
-wean supp O2 as able
-on dobut @1, wean
-hgb 8.8. continue asa, plavix
-LDL 146. continue lipitor. Abdominal ultrasound with fatty liver
-eventual GDMT of EF 40% as able.
-in SR/ST with several brief runs of afib vs atach. follow. continue amio. BB on hold while remains on dobut. check EKG
-continue post op care
-d/w nursing, CT surgery LOG CHIPPER
Progress Note - Specialty Manufacturing Supervisor
Subjective
Date of Service: June 23, 2024
reports poor appetite. reports pain adequately controlled.
Objective
Labs:
06/23/24 04:49
06/23/24 04:49
Labs
Hgb 8.8 g/dL (13.0-18.0) L 06/23/24 04:49
Hct 24.5 % (39.0-52.0) L 06/23/24 04:49
Plt Count 173 10^3/uL (130-400) 03/28/25 04:49
PT 17.1 Sec (11.4-14.6) H 06/21/24 19:13
INR 1.34 06/21/24 19:13
APTT 32.2 Sec (23.4-35.0) 06/21/24 19:13
Sodium 132 mmol/L (135-145) L 06/23/24 04:49
Potassium 4.4 mmol/L (3.5-5.1) 06/23/24 04:49
BUN 19 mg/dl (9-20) 06/23/24 04:49
Creatinine 0.9 mg/dL (0.7-1.3) 06/23/24 04:49
Glucose 130 mg/dl (70-99) H 06/23/24 04:49
Vital Signs and I&O:
Vital Signs
Temp Pulse Resp BP Pulse Ox
98.6 F 88 20 99/73 93
06/23/24 08:00 06/23/24 08:32 06/23/24 08:00 06/23/24 08:32 06/23/24 08:13
Vital Signs
Temp Pulse Resp BP Pulse Ox
98.6 F 88 20 99/73 93
06/23/24 08:00 06/23/24 08:32 06/23/24 08:00 06/23/24 08:32 06/23/24 08:13
Intake & Output
06/21/24 06/22/24 06/23/24 06/24/24
07:59 07:59 07:59 07:59
Intake Total 198.8 / 219.4 1868.7 / 1868.7 2350.6 / 2613.3 262.7 / 262.7
Output Total 2200 / 2200 1557 / 1557 1280 / 1320 40 / 40
Balance -2001.2 / -1980.6 311.7 / 311.7 1070.6 / 1293.3 222.7 / 222.7
Physical Exam
Physical Exam
GEN: No distress, awake, alert, oriented x3. on supp O2. sitting in chair
HEENT: supple, anicteric, mmm, eomi
LUNGS: Decreased BS B/L, no wheezes
CV: Reg and tachy, S1/S2, no murmur
ABD: BS+
EXT: No cyanosis, clubbing. Trace edema of B/L LE
NEURO: Gross non-focal
SKIN: Warm, pink, dry. No rash. Sternotomy dressing c/d/i. CTs in place
--- NOTE | 2024-06-23 12:13 | PTCARENOTE ---
VS obtained, assessment stable. Patient visiting with family, lunch ordered.
[2024-06-23 12:28] LABS: Glucose - Point of Care 130 mg/dl (70-99)
[2024-06-23 13:41] LABS: Mixed Venous O2 Saturation 56.7 %
--- NOTE | 2024-06-23 15:08 | CM ---
CM following for DC planning needs.
Attempted to meet w/ patient today but patient was sleeping; did not disturb.
Reviewed DC plan; anticipated DC plan is for home w/ CT Transitional Care RN.
CM to follow.
[2024-06-23] MEDS: NSS 500 IV (16:07)
[2024-06-23] MEDS: LIPITOR 20 MG PO (17:40)
--- NOTE | 2024-06-23 20:25 | PTCARENOTE ---
received pt from previous rn. pt AAOx4, VSS, NSR - sinus tachy per tele monitor, +rub, pox 93% on 2L NV, lungs diminished, +productive cough, hypoactive bs, voids appropriately in urinal, a;; surgical incisions intact, piv intact, RIJ cordis
infusing dobutamine and KVO, plan of care discussed questions encouraged.
[2024-06-23] MEDS: KCL 20 MEQ PO (21:02)
--- NOTE | 2024-06-23 22:10 | PTCARENOTE ---
pt went from NSR to a-fib HR 100s, @ 2200
--- NOTE | 2024-06-23 23:50 | PTCARENOTE ---
pt converted from a-fib to NSR @ 2300 with periods of ectopy, otherwise assessment remains unchanged
[2024-06-24] VITALS (20 sets, daily range): BP systolic 98–135; BP diastolic 58–83; PULSE 97; O2SAT 80–94; BMI 33.3
[2024-06-24] MEDS: ROXICODONE 5 MG PO ×2 (01:01→08:41)
--- NOTE | 2024-06-24 03:38 | W.PN.CT ---
Addendum entered and electronically signed by Norman Regalado MD 06/24/24 09:17:
I saw and examined the patient.
The PA's note was reviewed and I agree with the note.
Comment:
POD#3 s/p CABG x 2
AF overnight w/ RVR - back in sinus at 2300hrs
OFF dobutamine overnight, MvO2 59.3
Diuresis today for minor hyponatremia and congested CXR
OOB/IS/ambulate
Original Note:
Today's Communication / Plan
-
Plan:
-No major issues overnight. Hemodynamically and neurologically intact
-Dobutamine was weaned off last night @ 2230 d/t a-fib with RVR (120's). Pt converted to NSR @ 2300
-Current rhythm is NSR with PAC's
-Mixed venous O2 with dobutamine off is 59.3%
-Will add low dose BB given low BP and postop a-fib
-Will switch Lopressor to Toprol XL given ICM
-Gentle diuresis if BP permits, weight is up
-Cont. current meds (ASA, Plavix, Lipitor, Amio, Protonix, Toprol XL)
-D/C cordis
-Monitor h/h of 8.9/25.2, likely hemodilutional and should improve with diuresis
-Monitor hyponatremia of 132, likely d/t fluid overload and should improve with diuresis. Fluid restriction
-Monitor hypermagnesemia, 2.6, mag oxide currently on hold
-No temporary PW
-Encourage use of IS
-OOB into chair/Ambulate
-Home in 1-2 days
Assessment / Plan
-
- s/p CABG x 2 (CLINT to LAD, GSV to OM); Repair of epicardial adipose avulsion; Ao cannulation site repair; Right thymectomy w/ removal of enlarged (1.6cm) lymph node on 3/26/25, pod #3
- Post-ALLI: LVEF 40%, [id number]-gfdrjf lateral wall hypokinesis, mild AI, otherwise no significant VHD
- NSTEMI, peak trop 117
- Multivessel CAD found on cath 06/16/2024
- ICM
- LVEF 45% per intraop ALLI
- Class 1 obesity (BMI 32)
- Acute systolic CHF (LVEDP 35)
- HTN/HLD
- Former smoker
- EtOH (2-3 beers 4 times/wk)
- Elevated LFTs
- Family hx [place] 50s
- Acute postop blood loss anemia - stable, no transfusion
- Acute postop thrombocytopenia- s/p 1 unit platelets
- Acute postop atelectasis
- Acute postop hypovolemia with subsequent hypervolemia
- Acute postop a-fib with RVR x 1hr while on dobutamine
- Acute postop hyponatremia
Discussed patient care with: Cardiology, Nursing, Respiratory Therapy, Pharmacy and Care Team
Subjective
-
Date of Service: June 24, 2024
Pt c/o mild incisional pain, otherwise feels well
Objective Data
-
PT 17.1 Sec (11.4-14.6) H 06/21/24 19:13
INR 1.34 06/21/24 19:13
APTT 32.2 Sec (23.4-35.0) 06/21/24 19:13
Vital Signs
Vital Signs
Temp Pulse Resp BP Pulse Ox
98.3 F 98 18 100/72 97
06/23/24 23:53 06/24/24 03:00 06/23/24 23:53 06/24/24 03:00 06/24/24 03:00
CT Intake/Output/Weight
06/23/24 06/23/24 06/24/24
06:59 18:59 06:59
Intake Total 292.1 / 2401.1 627.0 / 705.1 78.1 / 705.1
Output Total 695 / 1310 740 / 1140 400 / 1140
Balance -402.9 / 1091.1 -113.0 / -434.9 -321.9 / -434.9
SaO2: 97 (2L)
Physical Exam
-
General: Awake, Oriented and AOx3
Cardiovascular: Regular rate & rhythm, No Murmurs and No Gallop
Respiratory: Decreased Breath Sounds (at bases, otherwise clear)
Sternum: Stable
Incision: Clean, Dry, Intact and Dressing Intact
Extremities: Edema +1
Data Reviewed
-
Lab Results: Results Reviewed
Medications: Active Meds Reviewed
Chest X-Ray: Report Reviewed and Image Reviewed
ECG: Report Reviewed and Image Reviewed
[2024-06-24 03:48] LABS: Mixed Venous O2 Saturation 59.3 %
[2024-06-24 03:50] LABS: Hematocrit 25.2 % (39.0-52.0); Hemoglobin 8.9 g/dL (13.0-18.0); Ionized Calcium 1.12 mMOL/L (1.15-1.33); Mean Corp Hgb Conc. 35.3 g/dL (33.0-37.0); Mean Corpuscular Hgb 31.7 pg (27.0-31.0); Mean Corpuscular Volume 89.7 fL (80.0-94.0); Mean Platelet Volume 10.3 fL (7.4-10.4); Platelet Count 213 10^3/uL (130-400); Red Blood Cell Count 2.81 10^6/uL (4.70-6.10); White Blood Cell Count 16.8 10^3/uL (4.8-10.8)
--- NOTE | 2024-06-24 04:00 | PTCARENOTE ---
routine labs obtained, VSS, NSR/Sinus tachycardia w/ frequent PACs per tele monitor HR 90-100s.
[2024-06-24 04:11] LABS: Blood Urea Nitrogen 21 mg/dl (9-20); Calcium 8.4 mg/dl (8.4-10.2); Carbon Dioxide 29 mmol/L (22-30); Chloride 94 mmol/L (98-107); Estimated Creatinine Clearance 72 ml/min; Glucose 128 mg/dl (70-99); Magnesium 2.6 mg/dl (1.6-2.3); Potassium 4.7 mmol/L (3.5-5.1); Sodium 132 mmol/L (135-145); eGFR > 60.00
[2024-06-24] MEDS: TYLENOL PO ×2 (05:54→07:21)
[2024-06-24] MEDS: CALCIUM GLUCONATE 130 MG IV (05:54)
--- NOTE | 2024-06-24 07:45 | W.PN.INTV ---
Today's Communication / Plan
Recommendations
Up OOB as tolerated
Wean down off dobutamine gtt yesterday
Pain control
Cardiac rehab consult
Goal SpO2 >90-94%
Goal BG 110-140
Patient has been off of dobutamine since yesterday. Going to be downgraded to CVICU�telemetry status today. No additional recommendations at this time. Emergency Doctor/Pulmonary service will now sign off. Please reconsult if there are any additional
questions/concerns, or if patient's respiratory status deteriorates.
Assessment
-
Assessment: 74-year-old male former tobacco smoker with a past medical history of hypertension and alcohol use disorder who presents with chest pain. Initial EKG showed anterior T wave inversions with inferior ST depressions and ST elevation seen
in aVR. Heparin drip started and cardiology consulted - left heart catheterization was performed on 06/16, showing advanced CAD with 100% occlusion of the proximal LCx + proximal LAD with distal vessel filling via a well-developed right to left and
faint left to left collaterals. Also in low normal to mildly reduced LVEF at 45-5% with increased LVEDP at 35 mmHg. Cardiothoracic surgery consulted. Patient was consented for and a CABG x 2 was performed on 06/21/2024. Patient was transferred to
the CVICU postoperatively and Emergency Doctor services consulted for additional management/recommendations.
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
Impression:
#Two-vessel CAD with 100 send occlusion of both pLAD + pLCx with NSTEMI s/p CABG x 2 (POD #3)
#Repair of epicardial adipose avulsion (POD #3)
#s/p right thymectomy with removal of enlarged lymph node (1.6 cm - POD #3)
#Acute anemia due to above
#Alcohol use disorder
#Former tobacco smoker
#Hypertension
#History of asthma
Plan:
Patient was successfully extubated on 06/22/2024 shortly after 1AM and is currently saturating 94-95% on RA, breathing comfortably
Maintain SpO2 >90-94%
prn nebulized bronchodilators - not currently bronchospastic
Encourage incentive spirometer use as tolerated given that he has chest discomfort
Removal of R�IJ cordis as per CT surgery team
Maintain MAP>65
Replete electrolytes with K>4, Mg>2
All chest tubes now been removed
Monitor hemoglobin
Monitor platelet count and coags
Transfuse blood products as needed to maintain Hb>7g/dL, plt>50k (given post-operative status)
Monitor blood sugar to maintain euglycemia with goal BG 110-140
Insulin drip DC'd � recommend ISS to maintain BG goal as above
Aspiration precautions
DVT prophylaxis
Early nutrition
Early mobilization
Patient has been off of dobutamine since yesterday. Going to be downgraded to CVICU�telemetry status today. No additional recommendations at this time. Emergency Doctor/Pulmonary service will now sign off. Thank you for allowing us to be involved in
the care of this patient. Please reconsult if there are any additional questions/concerns, or if patient's respiratory status deteriorates.
Total time spent today was 57 minutes for this encounter. Time includes reviewing laboratory test/imaging results, reviewing pertinent medical records, obtaining and reviewing medical history, performing an appropriate exam, ordering medications,
tests and procedures. Time also includes documentation of this encounter, coordinating patient care and communicating with other healthcare professionals. Total time does not include separately billed tests performed on this date of service.
Subjective Dataa
Subjective Data
Date of Service:
Date of Service: June 24, 2024
Chief Complaint: Emergency Doctor Follow Up
Subjective:
Patient was seen and evaluated today at bedside. Currently on room air breathing comfortably, saturating 94%. R�IJ cordis in place. He is sitting in a chair no acute distress. Has some mild chest discomfort but denies WALTERS, SOB, fevers or chills.
Review of Systems
General: Other (Negative unless mentioned above)
Objective Data
Data Reviewed
Vital Signs / I&O / Oxygen:
Vital Signs
Temp Pulse Resp BP Pulse Ox
98.6 F 101 22 135/83 97
06/24/24 04:01 06/24/24 07:00 06/24/24 04:01 06/24/24 07:00 06/24/24 07:00
Intake and Output
06/23/24 06/24/24 06/25/24
06:59 06:59 06:59
Intake Total 2401.1 / 2401.1 715.1 / 715.1
Output Total 1310 / 1310 1665 / 1665
Balance 1091.1 / 1091.1 -949.9 / -949.9
SaO2 [CPAP] 100
SaO2 [SIMV] 100
SaO2 97
Nasal Cannula flow liters per 2
minute
Physical Exam
General: Respiratory Distress (negative), Comfortable, Chills (negative) and Sweats (negative)
HEENT: Normocephalic and Anicteric
Cardiovascular: S1-S2 and Peripheral Edema (negative)
Respiratory: Wheeze (negative), Crackles (Bibasilar), Rhonchi (negative), Non-Labored Respirations, Stridor (negative) and Other (Diminished breath sounds bilaterally)
GI: Soft, Non Distended, Non Tender and Normal Bowel Sounds
Neurology: AO x 3 and Tremors (negative)
Skin: Warm, Dry, Cyanosis (negative) and Jaundice (negative)
Labs/Micro/Reports
Lab Data
06/24/24 03:35
06/24/24 03:35
--- NOTE | 2024-06-24 08:00 | PTCARENOTE ---
pt received from previous RN, oriented, in bed. SR/ST on the monitor, HR 90-100s. SBP 100s. palpable pulses, trace hand and LE edema. pt on RA, 93% POX. lungs diminished. +productive cough. IS encouraged. Chest PT performed. pt abdomen s/n, denies
n/v. poor appetite, POLISHING MACHINE TENDER aware, Ensure ordered. voids. ambulates w/ stand by assist. sternal aquacel in place. chest tube site c/d/i. R groin CORNCOB PIPE MANUFACTURING SUPERVISOR, ecchymotic. RLE incision CORNCOB PIPE MANUFACTURING SUPERVISOR. RIJ cordis maintained. PIV. see worklist for VS, I&O, and assessment.
[2024-06-24] MEDS: PROTONIX 40 MG PO (08:40)
[2024-06-24] MEDS: LOW STRENGTH ASPIRIN 81 MG PO (08:40)
[2024-06-24] MEDS: FOLVITE 1 MG PO (08:40)
[2024-06-24] MEDS: NEURONTIN 100 MG PO ×3 (08:40→22:26)
[2024-06-24] MEDS: SENOKOT-S 1 TABLET PO ×2 (08:40→20:05)
[2024-06-24] MEDS: TOPROL XL 12.5 MG PO ×2 (08:40→20:05)
[2024-06-24] MEDS: VITAMIN B1 100 MG PO ×2 (08:40→20:05)
[2024-06-24] MEDS: PACERONE 200 MG PO ×3 (08:40→22:26)
[2024-06-24] MEDS: LASIX 20 MG IV (08:41)
[2024-06-24] MEDS: LIDOCAINE 4% PATCH 1 PATCH TOPICAL (08:41)
[2024-06-24] MEDS: PLAVIX 75 MG PO (08:42)
[2024-06-24] MEDS: BACTROBAN 2% OINTMENT 1 APPLIC NASAL ×2 (08:42→20:05)
--- NOTE | 2024-06-24 09:39 | PTCARENOTE ---
Addendum entered by Jodi Montez RN 06/24/24 11:20:
pt converted to SR w/ occasional PACs @0946, STOCK PITCHER aware. amiodarone bolus given as ordered.
Original Note:
pt ambulated in hallway w/ CR, pt c/o lightheadedness and dizziness. SBP 100-110s. STOCK PITCHER aware. pt went into Afib @0929, SBP 100s. HR 100-150s. STOCK PITCHER and Dr. Regalado aware. 93% POX on RA.
[2024-06-24] MEDS: CORDARONE 103 MG IV (11:04)
--- NOTE | 2024-06-24 11:43 | W.PN.CARDCBS ---
Today's Communication / Plan
-
Received IV Lasix, continue IV lasix as bp will allow as wt is up.
Cont amiodarone for post op AFib
Consider anticoagulation when ok with surgery
Cont DAPT
Continue Lipitor. LDL 146. Abdominal ultrasound with fatty liver.
Eventual GDMT as BP will allow, IntraOp ALLI EF 45% with basal inferior and apical lateral wall hypokinesis, with postop EF 40% worsening lateral wall hypokinesis (mid to apical lateral wall)
Consider follow up echo prior to d/c
Impression / Plan
-
.
Primary Chromium Plater: none, initial consult Dr. Ramin Toledo
PCP: none
Assessment:
Presentation with CP
NSTEMI, peak trop 117
Multivessel CAD found on cath 06/16/2024
s/p CABG x 2 CLINT to LAD, GSV to OM; Repair of epicardial adipose avulsion; Ao cannulation site repair; Right thymectomy with removal of enlarged 1.6cm lymph node 06/21/24
Cardiomyopathy
Postop atrial fibrillation episode
Elevated LFTs
Hyperlipidemia
Obesity
Remote former smoker
Cardiovascular testing:
Left heart cath 06/16/2024: Advanced CAD with 100% occlusion of the proximal small circumflex and proximal LAD with distal filling via well-developed right to left and faint left to left collaterals, LVEDP 35
Left main: Normal
LAD 100% occluded proximal with distal filling via well-developed [id number]-vmrmj collaterals and faint left to left collaterals
Ramus: RI small to medium caliber vessel widely patent
Circumflex: 100% occluded proximal. Distal vessel fills via vein right to left collaterals and left to left collaterals
RCA 30% ostial. PDA is large, posterior lateral branch large. Well-developed collaterals to mid LAD and diagonal branch. Collaterals also noted to fail circumflex branch
LVEDP 35
Echo 06/16/2024: Normal LV dimension, mid-distal anteroseptal hypokinesis, LVEF 55%. RV normal , no significant valvular heart disease
Plan:
-Patient presented for evaluation of chest pain and ruled in for NSTEMI with troponin peaking at 117. Cardiac catheterization 06/16 with multivessel CAD. ECHO with preserved EF.
-s/p CABG x 2 CLINT to LAD, GSV to OM; Repair of epicardial adipose avulsion; Ao cannulation site repair; Right thymectomy with removal of enlarged 1.6cm lymph node 06/21/24
-post ALLI with EF 40%, mid to apical lateral wall hypokinesis, mild AI
Received IV Lasix, continue IV lasix as bp will allow as wt is up.
Cont amiodarone for post op AFib PM 06/23. Spontaneously converted to sinus rhythm after approximately 30 minutes.
Consider anticoagulation when ok with surgery
Cont DAPT
Continue Lipitor. LDL 146. Abdominal ultrasound with fatty liver.
Eventual GDMT as BP will allow, IntraOp ALLI EF 45% with basal inferior and apical lateral wall hypokinesis, with postop EF 40% worsening lateral wall hypokinesis (mid to apical lateral wall)
Consider follow up echo prior to d/c
Continue post op care
Discussed with nursing
Progress Note - Chromium Plater
Subjective
Date of Service: June 24, 2024
Patient seen and examined. No chest pain or shortness of breath.
Objective
Labs:
06/24/24 03:35
06/24/24 03:35
Labs
Hgb 8.9 g/dL (13.0-18.0) L 06/24/24 03:35
Hct 25.2 % (39.0-52.0) L 06/24/24 03:35
Plt Count 213 10^3/uL (130-400) D 06/24/24 03:35
PT 17.1 Sec (11.4-14.6) H 06/21/24 19:13
INR 1.34 06/21/24 19:13
APTT 32.2 Sec (23.4-35.0) 06/21/24 19:13
Sodium 132 mmol/L (135-145) L 06/24/24 03:35
Potassium 4.7 mmol/L (3.5-5.1) 06/24/24 03:35
BUN 21 mg/dl (9-20) H 06/24/24 03:35
Creatinine 1.0 mg/dL (0.7-1.3) 06/24/24 03:35
Glucose 128 mg/dl (70-99) H 06/24/24 03:35
Vital Signs and I&O:
Vital Signs
Temp Pulse Resp BP Pulse Ox
98.4 F 94 18 98/70 96
06/24/24 08:00 06/24/24 11:30 06/24/24 11:41 06/24/24 11:17 06/24/24 11:41
Vital Signs
Temp Pulse Resp BP Pulse Ox
98.4 F 94 18 98/70 96
06/24/24 08:00 06/24/24 11:30 06/24/24 11:41 06/24/24 11:17 06/24/24 11:41
Intake & Output
06/22/24 06/23/24 06/24/24 06/25/24
06:59 06:59 06:59 06:59
Intake Total 1818.2 / 1818.2 2401.1 / 2401.1 715.1 / 715.1 250 / 250
Output Total 1527 / 1527 1310 / 1310 1665 / 1665 900 / 900
Balance 291.2 / 291.2 1091.1 / 1091.1 -949.9 / -949.9 -650 / -650
Physical Exam
Physical Exam
General: No acute distress, AAOX3
Neck: Negative JVD
Heart: Regular, Negative S3 positive S1/S2, Negative S4, No murmur
Lungs: CTA b/l, negative wheezes/rales/rhonchi
Abd: Positive BS, NT/ND, neg rebound/rigidity/guarding
Ext: Negative cyanosis/clubbing/edema
Neuro: nonfocal
--- NOTE | 2024-06-24 12:42 | PTCARENOTE ---
pt VSS, no changes in assessment. OOB in chair. IS encouraged.
[2024-06-24] MEDS: TYLENOL 1000 MG PO ×2 (13:13→22:26)
--- NOTE | 2024-06-24 16:05 | PTCARENOTE ---
pt VSS, no changes in assessment. pt ambulating in hallway w/ stand by assist. PIV leaking, dc'd. IV team called for new PIV. no c/o pain. voiding in urinal.
[2024-06-24] MEDS: NSS IV (17:35)
--- NOTE | 2024-06-24 17:35 | PTCARENOTE ---
PIV placed by IV team. LIZZIE paredes dc'dorothy as ordered. OOB in chair for dinner.
[2024-06-24] MEDS: LIPITOR 20 MG PO (18:25)
--- NOTE | 2024-06-24 20:12 | PTCARENOTE ---
received pt from previous rn. pt AAOx4, VSS, NSR - sinus tachy per tele monitor, pox 95% , lungs diminished, +productive cough, hypoactive bs, voids appropriately in urinal, all surgical incisions intact, piv intact, plan of care discussed questions
encouraged.
[2024-06-24] MEDS: MELATONIN 5 MG PO (22:26)
[2024-06-25] VITALS (9 sets, daily range): BP systolic 93–122; BP diastolic 58–80; BMI 33.0
--- NOTE | 2024-06-25 00:07 | PTCARENOTE ---
pt resting comfortably in bed, VSS. NSR w/ frequent PACs per tele monitor. assessment remains unchanged
--- NOTE | 2024-06-25 03:22 | PTCARENOTE ---
routine labs obtained. VSS, NSRw/ PACs per tele monitor, assessment remains unchanged
[2024-06-25 03:42] LABS: Hematocrit 23.7 % (39.0-52.0); Hemoglobin 8.4 g/dL (13.0-18.0); Mean Corp Hgb Conc. 35.4 g/dL (33.0-37.0); Mean Corpuscular Hgb 31.8 pg (27.0-31.0); Mean Corpuscular Volume 89.8 fL (80.0-94.0); Mean Platelet Volume 10.3 fL (7.4-10.4); Platelet Count 258 10^3/uL (130-400); Red Blood Cell Count 2.64 10^6/uL (4.70-6.10); Red Cell Dist. Width 11.9 % (11.5-14.5); White Blood Cell Count 14.1 10^3/uL (4.8-10.8)
[2024-06-25 04:04] LABS: Blood Urea Nitrogen 24 mg/dl (9-20); Calcium 8.7 mg/dl (8.4-10.2); Carbon Dioxide 29 mmol/L (22-30); Chloride 95 mmol/L (98-107); Estimated Creatinine Clearance 80 ml/min; Glucose 117 mg/dl (70-99); Magnesium 2.3 mg/dl (1.6-2.3); Potassium 4.2 mmol/L (3.5-5.1); Sodium 131 mmol/L (135-145); eGFR > 60.00
--- NOTE | 2024-06-25 04:50 | W.PN.CT ---
Addendum entered and electronically signed by Norman Regalado MD 06/25/24 09:26:
I saw and examined the patient.
The PA's note was reviewed and I agree with the note.
Comment:
POD#4 s/p CABG x 2
No further AF, uptitration of BB, continue amio
Diuresis today
OOB/IS/ambulate
D/C planning for potentially tomorrow
Original Note:
Today's Communication / Plan
-
Plan:
-No major issues overnight. Hemodynamically and neurologically intact
-No further A-fib. Increase Amiodarone and BB
-Current rhythm is NSR with PAC's
-Cont. current meds (ASA, Plavix, Lipitor, Amio, Protonix, Toprol XL, Lasix)
-D/C cordis
-F/U 2-view cxr
-Diuresis today, wt up 7 lbs from preop
-Monitor h/h 8.4/23.7, was 8.9/25.2, likely hemodilutional and should improve with diuresis
-Monitor hyponatremia of 131, likely d/t fluid overload and should improve with diuresis. Fluid restriction
-Monitor hypermagnesemia, 2.6-> 2.3, mag oxide currently on hold
-No temporary PW
-Encourage use of IS
-OOB into chair/Ambulate
-Home likely tomorrow
Assessment / Plan
-
- s/p CABG x 2 (CLINT to LAD, GSV to OM); Repair of epicardial adipose avulsion; Ao cannulation site repair; Right thymectomy w/ removal of enlarged (1.6cm) lymph node on 06/21/24, pod #4
- Post-ALLI: LVEF 40%, [id number]-lg-[id number] lateral wall hypokinesis, mild AI, otherwise no significant VHD
- NSTEMI, peak trop 117
- Multivessel CAD found on cath 06/16/2024
- ICM
- LVEF 45% per intraop ALLI
- Class 1 obesity (BMI 32)
- Acute systolic CHF (LVEDP 35)
- HTN/HLD
- Former smoker
- EtOH (2-3 beers 4 times/wk)
- Elevated LFTs
- Family hx [place] 50s
- Acute postop blood loss anemia - stable, no transfusion
- Acute postop thrombocytopenia- s/p 1 unit platelets
- Acute postop atelectasis
- Acute postop hypovolemia with subsequent hypervolemia
- Acute postop a-fib with RVR x 1hr while on dobutamine
- Acute postop hyponatremia
Discussed patient care with: Cardiology, Nursing, Respiratory Therapy, Pharmacy and Care Team
Subjective
-
Date of Service: June 25, 2024
Pt c/o mild incisional pain, otherwise feels well. Ambulating halls
Objective Data
-
Lab Results
06/25/24 03:19
06/25/24 03:19
PT 17.1 Sec (11.4-14.6) H 06/21/24 19:13
INR 1.34 06/21/24 19:13
APTT 32.2 Sec (23.4-35.0) 06/21/24 19:13
Vital Signs
Vital Signs
Temp Pulse Resp BP Pulse Ox
97.9 F 90 18 105/71 93
06/25/24 03:22 06/25/24 03:00 06/25/24 03:22 06/25/24 02:53 06/25/24 03:22
CT Intake/Output/Weight
06/24/24 06/24/24 06/25/24
06:59 18:59 06:59
Intake Total 88.1 / 715.1 997 / 997
Output Total 925 / 1665 1100 / 1600 500 / 1600
Balance -836.9 / -949.9 -103 / -603 -500 / -603
SaO2: 93 (RA)
Physical Exam
-
General: Awake, Oriented and AOx3
Cardiovascular: Regular rate & rhythm, No Murmurs, No Rub and No Gallop
Respiratory: Decreased Breath Sounds (at bases, otherwise clear )
Sternum: Stable
Incision: Clean, Dry, Intact and Dressing Intact
Extremities: Other (+trace edema)
Data Reviewed
-
Lab Results: Results Reviewed
Medications: Active Meds Reviewed
Chest X-Ray: Report Reviewed and Image Reviewed
ECG: Report Reviewed and Image Reviewed
[2024-06-25] MEDS: TYLENOL 1000 MG PO ×2 (05:48→20:32)
--- NOTE | 2024-06-25 08:00 | PTCARENOTE ---
pt received from previous RN, oriented, in bed. SR w/ PACs on the monitor, HR 80-900s. SBP 110s. palpable pulses, trace hand and +1 LE edema. pt on RA, 94% POX. lungs clear, diminished in bases. +productive cough. IS encouraged. pt abdomen s/n,
denies n/v. poor appetite. voids. ambulates w/ stand by assist. sternal aquacel in place. chest tube site c/d/i. R groin ARIA, ecchymotic. RLE incision ARIA. PIV. see worklist for VS, I&O, and assessment.
[2024-06-25] MEDS: SENOKOT-S 1 TABLET PO ×2 (08:11→20:32)
[2024-06-25] MEDS: PROTONIX 40 MG PO (08:11)
[2024-06-25] MEDS: VITAMIN B1 100 MG PO ×2 (08:11→20:32)
[2024-06-25] MEDS: LIDOCAINE 4% PATCH TOPICAL (08:12)
[2024-06-25] MEDS: FOLVITE 1 MG PO (08:12)
[2024-06-25] MEDS: LOW STRENGTH ASPIRIN 81 MG PO (08:12)
[2024-06-25] MEDS: PLAVIX 75 MG PO (08:12)
[2024-06-25] MEDS: TOPROL XL 25 MG PO (08:12)
[2024-06-25] MEDS: KCL 20 MEQ PO ×2 (08:12→20:32)
[2024-06-25] MEDS: PACERONE 400 MG PO ×3 (08:12→20:34)
[2024-06-25] MEDS: NEURONTIN 100 MG PO ×3 (08:12→20:32)
[2024-06-25] MEDS: LASIX 20 MG IV ×2 (08:13→16:32)
[2024-06-25] MEDS: BACTROBAN 2% OINTMENT 1 APPLIC NASAL (08:13)
[2024-06-25] MEDS: MIRALAX 17 GRAMS PO (09:02)
--- NOTE | 2024-06-25 12:00 | PTCARENOTE ---
pt VSS, no changes in assessment. pt OOB in chair, encouraged to order lunch. ambulated in hallway.
[2024-06-25] MEDS: TYLENOL PO (16:28)
--- NOTE | 2024-06-25 16:30 | PTCARENOTE ---
pt VSS, no changes in assessment. pt ambulated entire loop w/ stand by assist. pt showered. OOB in chair for dinner.
[2024-06-25] MEDS: NSS IV (17:12)
[2024-06-25] MEDS: LIPITOR 40 MG PO (18:05)
--- NOTE | 2024-06-25 20:04 | PTCARENOTE ---
received pt from previous rn. pt AAOx4, VSS, NSR - sinus tachy w/ frequent PACs per tele monitor, pox 98% , lungs diminished, +productive cough, hypoactive bs, voids appropriately in urinal, sternal incision approximated w/ slight oozing, [id number]
applied CTPA made aware, R groin and R leg surgical incision intact. plan of care discussed questions encouraged.
[2024-06-25] MEDS: TOPROL XL 50 MG PO (21:02)
[2024-06-25] MEDS: CALCIUM GLUCONATE 100 IV (21:51)
[2024-06-26] VITALS (10 sets, daily range): BP systolic 98–119; BP diastolic 64–87; PULSE 87–89; O2SAT 97–99; BMI 32.7
--- NOTE | 2024-06-26 00:09 | PTCARENOTE ---
pt resting comfortably in bed, VSS, NSR w/ frequent PACs per tele monitor, assessment remains unchanged
--- NOTE | 2024-06-26 04:15 | W.PN.CT ---
Today's Communication / Plan
-
Plan:
-No major issues overnight. Hemodynamically and neurologically intact
-No further A-fib. Increase Amiodarone and BB
-Current rhythm is NSR with PAC's @ 85 bpm
-Cont. current meds (ASA, Plavix, Lipitor, Amio, Protonix, Toprol XL, Lasix)
-Cont diuresis today, wt up 5 lbs from preop, down 2lbs from yesterday
-Monitor h/h 8.6/24.8, was 8.4/23.7, likely hemodilutional and should improve with diuresis
-Monitor hyponatremia of 132, likely d/t fluid overload and should improve with diuresis. Fluid restriction
-No temporary PW
-Encourage use of IS
-OOB into chair/Ambulate
-Home likely later today vs tomorrow
Assessment / Plan
-
- s/p CABG x 2 (CLINT to LAD, GSV to OM); Repair of epicardial adipose avulsion; Ao cannulation site repair; Right thymectomy w/ removal of enlarged (1.6cm) lymph node on 06/21/24, pod #5
- Post-ALLI: LVEF 40%, [id number]-[id number] lateral wall hypokinesis, mild AI, otherwise no significant VHD
- NSTEMI, peak trop 117
- Multivessel CAD found on cath 06/16/2024
- ICM
- LVEF 45% per intraop ALLI
- Class 1 obesity (BMI 32)
- Acute systolic CHF (LVEDP 35)
- HTN/HLD
- Former smoker
- EtOH (2-3 beers 4 times/wk)
- Elevated LFTs
- Family hx [place] 50s
- Acute postop blood loss anemia - stable, no transfusion
- Acute postop thrombocytopenia- s/p 1 unit platelets
- Acute postop atelectasis
- Acute postop hypovolemia with subsequent hypervolemia
- Acute postop a-fib with RVR x 1hr while on dobutamine
- Acute postop hyponatremia
Discussed patient care with: Cardiology, Nursing, Respiratory Therapy, Pharmacy and Care Team
Subjective
-
Date of Service: June 26, 2024
Pt c/o mild incisional pain, otherwise feels well. Ambulating halls without difficulty
Objective Data
-
PT 17.1 Sec (11.4-14.6) H 06/21/24 19:13
INR 1.34 06/21/24 19:13
APTT 32.2 Sec (23.4-35.0) 06/21/24 19:13
Vital Signs
Vital Signs
Temp Pulse Resp BP Pulse Ox
98.3 F 83 16 99/68 95
06/26/24 03:38 06/26/24 03:30 06/26/24 03:38 06/26/24 03:23 06/26/24 03:38
CT Intake/Output/Weight
06/25/24 06/25/24 06/26/24
06:59 18:59 06:59
Intake Total 848 / 848
Output Total 1200 / 2300 975 / 1575 600 / 1575
Balance -1200 / -1303 -127 / -727 -600 / -727
SaO2: 95 (RA)
Physical Exam
-
General: Awake, Oriented and AOx3
Cardiovascular: Regular rate & rhythm, No Murmurs, No Rub and No Gallop
Respiratory: Decreased Breath Sounds (at bases, otherwise clear)
Sternum: Stable
Incision: Clean, Dry, Intact and Dressing Intact
Extremities: Other (+trace edema)
Data Reviewed
-
Lab Results: Results Reviewed
Medications: Active Meds Reviewed
Chest X-Ray: Report Reviewed and Image Reviewed
ECG: Report Reviewed and Image Reviewed
--- NOTE | 2024-06-26 04:22 | PTCARENOTE ---
routine labs obtained, VSS, assessment remains unchanged
[2024-06-26 04:46] LABS: Hematocrit 24.8 % (39.0-52.0); Hemoglobin 8.6 g/dL (13.0-18.0); Mean Corp Hgb Conc. 34.7 g/dL (33.0-37.0); Mean Corpuscular Hgb 31.4 pg (27.0-31.0); Mean Corpuscular Volume 90.5 fL (80.0-94.0); Mean Platelet Volume 9.7 fL (7.4-10.4); Platelet Count 335 10^3/uL (130-400); Red Blood Cell Count 2.74 10^6/uL (4.70-6.10); Red Cell Dist. Width 12.3 % (11.5-14.5); White Blood Cell Count 12.2 10^3/uL (4.8-10.8)
[2024-06-26 05:01] LABS: Blood Urea Nitrogen 22 mg/dl (9-20); Calcium 8.8 mg/dl (8.4-10.2); Carbon Dioxide 29 mmol/L (22-30); Chloride 98 mmol/L (98-107); Estimated Creatinine Clearance 79 ml/min; Glucose 107 mg/dl (70-99); Magnesium 2.3 mg/dl (1.6-2.3); Potassium 4.5 mmol/L (3.5-5.1); Sodium 132 mmol/L (135-145); eGFR > 60.00
[2024-06-26] MEDS: TYLENOL 1000 MG PO ×3 (06:04→20:51)
[2024-06-26] MEDS: CALCIUM GLUCONATE 130 MG IV (06:05)
[2024-06-26] MEDS: TOPROL XL 25 MG PO ×2 (08:46→20:51)
[2024-06-26] MEDS: KCL 20 MEQ PO (08:46)
[2024-06-26] MEDS: FOLVITE 1 MG PO (08:46)
[2024-06-26] MEDS: PACERONE 400 MG PO ×3 (08:46→20:51)
[2024-06-26] MEDS: PLAVIX 75 MG PO (08:46)
[2024-06-26] MEDS: PROTONIX 40 MG PO (08:46)
[2024-06-26] MEDS: VITAMIN B1 100 MG PO ×2 (08:46→20:50)
[2024-06-26] MEDS: LOW STRENGTH ASPIRIN 81 MG PO (08:47)
[2024-06-26] MEDS: NEURONTIN 100 MG PO ×3 (08:47→20:51)
[2024-06-26] MEDS: SENOKOT-S 1 TABLET PO ×2 (08:47→20:51)
[2024-06-26] MEDS: LIDOCAINE 4% PATCH TOPICAL (08:51)
--- NOTE | 2024-06-26 09:20 | PTCARENOTE ---
Patient received from night clerk resting oob in chair, AAO X 3, having breakfast. NSR via cm, SaO2 @ 97% on RA. All procedural sites stable. Patient updated to plan of care, in agreement. See work list for full assessment and interventions
performed.
--- NOTE | 2024-06-26 10:34 | W.PN.CARDCBS ---
Today's Communication / Plan
-
supportive post op care
Impression / Plan
-
Primary Bow Machine Operator: none, initial consult Dr. Ramin Toledo
PCP: none
Assessment:
Presentation with CP
NSTEMI, peak trop 117
Multivessel CAD found on cath 06/16/2024
s/p CABG x 2 CLINT to LAD, GSV to OM; Repair of epicardial adipose avulsion; Ao cannulation site repair; Right thymectomy with removal of enlarged 1.6cm lymph node 06/21/24
Cardiomyopathy
Postop atrial fibrillation episode
Elevated LFTs
Hyperlipidemia
Obesity
Remote former smoker
Cardiovascular testing:
Left heart cath 06/16/2024: Advanced CAD with 100% occlusion of the proximal small circumflex and proximal LAD with distal filling via well-developed right to left and faint left to left collaterals, LVEDP 35
Left main: Normal
LAD 100% occluded proximal with distal filling via well-developed qemb-ia-ihzvi collaterals and faint left to left collaterals
Ramus: RI small to medium caliber vessel widely patent
Circumflex: 100% occluded proximal. Distal vessel fills via vein right to left collaterals and left to left collaterals
RCA 30% ostial. PDA is large, posterior lateral branch large. Well-developed collaterals to mid LAD and diagonal branch. Collaterals also noted to fail circumflex branch
LVEDP 35
Echo 06/16/2024: Normal LV dimension, mid-distal anteroseptal hypokinesis, LVEF 55%. RV normal , no significant valvular heart disease
Plan:
NSTEMI with troponin peaking at 117.
- Cardiac catheterization 06/16 with multivessel CAD. ECHO with preserved EF.
-s/p CABG x 2 CLINT to LAD, GSV to OM; Repair of epicardial adipose avulsion; Ao cannulation site repair; Right thymectomy with removal of enlarged 1.6cm lymph node 06/21/24
-post ALLI with EF 40%, mid to apical lateral wall hypokinesis, mild AI
-No events overnight; hemodynamically stable ambulating with cardiac PT and halls without symptoms
-Postop atrial fibrillation 06/23 in the evening converting to sinus rhythm after approximately 30 minutes. No further A-fib.
-Continue amiodarone and continue Load 400 mg TID and discharged on 200 mg twice daily for 2 weeks than 200mg daily. Anticipate discontinuation of amiodarone if no recurrent atrial fibrillation one month after surgery. Continue metoprolol succinate
500 mg twice daily.
-Cont. current meds (ASA, Plavix, Lipitor, Amio, Protonix, Toprol XL, Lasix)
-Cont diuresis today, wt up 5 lbs from preop, down 2lbs from yesterday
-Continue Lipitor. LDL 146. Abdominal ultrasound with fatty liver.
-Encourage use of IS
-Consider follow up limited echo prior to d/c
-OOB into chair/Ambulate
Progress Note - Bow Machine Operator
Subjective
Date of Service: June 26, 2024
Seen and examined. Offers no new complaints. Ambulating with PT. No chest pain, shortness of breath or dizziness. Flatus but no BM yet. Voiding well
Objective
Labs:
06/26/24 04:15
06/26/24 04:15
Labs
Hgb 8.6 g/dL (13.0-18.0) L 06/26/24 04:15
Hct 24.8 % (39.0-52.0) L 06/26/24 04:15
Plt Count 335 10^3/uL (130-400) D 06/26/24 04:15
PT 17.1 Sec (11.4-14.6) H 06/21/24 19:13
INR 1.34 06/21/24 19:13
APTT 32.2 Sec (23.4-35.0) 06/21/24 19:13
Sodium 132 mmol/L (135-145) L 06/26/24 04:15
Potassium 4.5 mmol/L (3.5-5.1) 06/26/24 04:15
BUN 22 mg/dl (9-20) H 06/26/24 04:15
Creatinine 0.9 mg/dL (0.7-1.3) 06/26/24 04:15
Glucose 107 mg/dl (70-99) H 06/26/24 04:15
Vital Signs and I&O:
Vital Signs
Temp Pulse Resp BP Pulse Ox
98 F 89 16 107/87 97
06/26/24 08:18 06/26/24 09:00 06/26/24 08:18 06/26/24 08:46 06/26/24 09:18
Vital Signs
Temp Pulse Resp BP Pulse Ox
98 F 89 16 107/87 97
06/26/24 08:18 06/26/24 09:00 06/26/24 08:18 06/26/24 08:46 06/26/24 09:18
Intake & Output
06/24/24 06/25/24 06/26/24 06/27/24
06:59 06:59 06:59 06:59
Intake Total 715.1 / 715.1 997 / 997 848 / 848 250 / 250
Output Total 1665 / 1665 2300 / 2300 2175 / 2175 225 / 225
Balance -949.9 / -949.9 -1303 / -1303 -1327 / -1327
Physical Exam
Physical Exam
General: No acute distress, AAOX3
Heart: Regular, positive S1/S2, no murmur
Lungs: CTA b/l, negative wheezes/rales/rhonchi
Abd: Positive BS, NT/ND, neg rebound/rigidity/guarding
Ext: + trace edema
Neuro: nonfocal
--- NOTE | 2024-06-26 11:08 | CM ---
Reviewed chart. Met with Mr. Hamilton to review discharge plans. He states he is feeling well and amybe able to go home soon. Prior to admission he resides alone in a one story home with four steps to enter. Prior to admission he was independent
with ambulation and adls. He does not have any DME in the home. He ambulated 450 feet today. He states his children will stay with him a few days when he goes home. We reviewed home visit by the Transitional Care Nurse. He is agreeable to a home
visit. Medical work-up in progress. The discharge plan is to return home with his children staying with him and home visit by the Transitional Care Nurse when medically stable.
--- NOTE | 2024-06-26 11:56 | PTCARENOTE ---
VS obtained, assessment stable. Patient resting comfortably, denies pain, awaiting lunch.
[2024-06-26] MEDS: NSS IV (15:00)
--- NOTE | 2024-06-26 16:23 | PTCARENOTE ---
VS obtained, assessment stable. Patient resting comfortably, denies pain.
[2024-06-26] MEDS: LIPITOR 40 MG PO (17:09)
--- NOTE | 2024-06-26 20:30 | PTCARENOTE ---
assumed care of pt from previous RN. pt A&Ox4, resting in chair at time of assessment. pt ambulated entire unit w/ this RN. SR on tele-monitor, w/ occasional PVCs. POX 97% on RA. abd non-tender, round, firm. pt confirms passing gas. voiding yellow
urine in urinal. all surgical sites stable, CDI. PIV intact. plan of care discussed w/ pt, pt in agreement. see worklist for complete nursing assessment, interventions, VS, and I&Os.
--- NOTE | 2024-06-26 23:00 | PTCARENOTE ---
report received from previous RN. pt in bed asleep. VSS. SR on monitor, HR 70s. POX 97% on RA. surgical sites stable. PIV intact and patent. see worklist for full assessment, VS, and interventions.
[2024-06-27] VITALS (7 sets, daily range): BP systolic 105–134; BP diastolic 70–99; O2SAT 97; BMI 32.6
--- NOTE | 2024-06-27 01:56 | W.PN.CT ---
Today's Communication / Plan
-
Plan:
-No major issues overnight. Hemodynamically and neurologically intact
-No further A-fib since the brief 1hr on POD#3. BP did not tolerate increased Toprol to 50 BID and currently on 25 mg BID
-Current rhythm is NSR @ 80 bpm
-Cont. current meds (ASA, Plavix, Lipitor, Amio, Protonix, Toprol XL, Lasix)
-Cont diuresis today, check wt
-Monitor h/h 8.6/24.9
-Hyponatremia has improved 134, likely d/t fluid overload and should improve with diuresis. Fluid restriction
-No temporary PW
-Encourage use of IS
-OOB into chair/Ambulate
-F/U repeat echo today to reassess LVEF
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
-Home today
Assessment / Plan
-
- s/p CABG x 2 (CLINT to LAD, GSV to OM); Repair of epicardial adipose avulsion; Ao cannulation site repair; Right thymectomy w/ removal of enlarged (1.6cm) lymph node on 06/21/24, pod #6
- Post-ALLI: LVEF 40%, qqm-lt-zbrfwz lateral wall hypokinesis, mild AI, otherwise no significant VHD
- NSTEMI, peak trop 117
- Multivessel CAD found on cath 06/16/2024
- ICM
- LVEF 45% per intraop ALLI
- Class 1 obesity (BMI 32)
- Acute systolic CHF (LVEDP 35)
- HTN/HLD
- Former smoker
- EtOH (2-3 beers 4 times/wk)
- Elevated LFTs
- Family hx [place] 50s
- Acute postop blood loss anemia - stable, no transfusion
- Acute postop thrombocytopenia- s/p 1 unit platelets
- Acute postop atelectasis
- Acute postop hypovolemia with subsequent hypervolemia
- Acute postop a-fib with RVR x 1hr while on dobutamine
- Acute postop hyponatremia
Discussed patient care with: Cardiology, Nursing, Respiratory Therapy, Pharmacy and Care Team
Subjective
-
Date of Service: June 27, 2024
Pt c/o mild incisional pain, otherwise feels well
Objective Data
-
PT 17.1 Sec (11.4-14.6) H 06/21/24 19:13
INR 1.34 06/21/24 19:13
APTT 32.2 Sec (23.4-35.0) 06/21/24 19:13
Vital Signs
Vital Signs
Temp Pulse Resp BP Pulse Ox
97.8 F 81 16 119/77 97
06/26/24 20:30 06/26/24 23:00 06/26/24 20:30 06/26/24 20:51 06/26/24 21:07
CT Intake/Output/Weight
06/26/24 06/26/24 06/27/24
06:59 18:59 06:59
Intake Total 500 / 500
Output Total 1200 / 2175 850 / 850
Balance -1200 / -1327 -350 / -350
SaO2: 97 (RA)
Physical Exam
-
General: Awake, Oriented and AOx3
Cardiovascular: Regular rate & rhythm, No Rub and No Gallop
Respiratory: Decreased Breath Sounds (at bases)
Sternum: Stable
Incision: Clean, Dry, Intact and Dressing Intact
Extremities: Other (+trace edema)
Data Reviewed
-
Lab Results: Results Reviewed
Medications: Active Meds Reviewed
Chest X-Ray: Report Reviewed and Image Reviewed
ECG: Report Reviewed and Image Reviewed
--- NOTE | 2024-06-27 03:00 | PTCARENOTE ---
no changes in assessment. VSS. pt sleeping between care.
[2024-06-27 05:05] LABS: Hematocrit 24.9 % (39.0-52.0); Hemoglobin 8.6 g/dL (13.0-18.0); Mean Corp Hgb Conc. 34.5 g/dL (33.0-37.0); Mean Corpuscular Hgb 31.3 pg (27.0-31.0); Mean Corpuscular Volume 90.5 fL (80.0-94.0); Mean Platelet Volume 9.3 fL (7.4-10.4); Platelet Count 377 10^3/uL (130-400); Red Blood Cell Count 2.75 10^6/uL (4.70-6.10); Red Cell Dist. Width 12.4 % (11.5-14.5); White Blood Cell Count 11.5 10^3/uL (4.8-10.8)
[2024-06-27 05:34] LABS: Blood Urea Nitrogen 22 mg/dl (9-20); Calcium 8.7 mg/dl (8.4-10.2); Carbon Dioxide 27 mmol/L (22-30); Chloride 101 mmol/L (98-107); Estimated Creatinine Clearance 89 ml/min; Glucose 105 mg/dl (70-99); Magnesium 2.1 mg/dl (1.6-2.3); Potassium 4.4 mmol/L (3.5-5.1); Sodium 134 mmol/L (135-145); eGFR > 60.00
[2024-06-27] MEDS: TYLENOL 1000 MG PO (06:28)
--- NOTE | 2024-06-27 09:00 | PTCARENOTE ---
Assumed care of patient. Walking rounds completed with previous RN. Pt assessed while he was sitting in the chair. Pt alert and oriented x4. Pt denies pain, shortness of breath, and nausea. BLANCAS with equal strength throughout, independent in the
room. NSR on tele with rates in the 80s-90s. BP 105/70. Heart tones audible. Bilateral radial and DP pulses palpable. Trace lower extremity edema. POX 99% on RA. Lungs clear throughout. IS encouraged. Abdomen soft, round, nontender. +BS +BM last
night per patient. Pt voiding adequate amounts of clear yellow urine in the urinal. Sternal incision approximated, DISEASE INTERVENTION SPECIALIST. 4 old chest tube sites approximated with sutures, ARIA. Right groin puncture site and SVG harvest site approximated and DISEASE INTERVENTION SPECIALIST. L H
22g PIV intact. See MAR for medication administration. See worklist for complete nursing assessment. Plan of care reviewed and patient in agreement.
[2024-06-27] MEDS: TOPROL XL 25 MG PO (09:04)
[2024-06-27] MEDS: NEURONTIN 100 MG PO (09:04)
[2024-06-27] MEDS: FOLVITE 1 MG PO (09:04)
[2024-06-27] MEDS: PROTONIX 40 MG PO (09:04)
[2024-06-27] MEDS: VITAMIN B1 100 MG PO (09:04)
[2024-06-27] MEDS: LOW STRENGTH ASPIRIN 81 MG PO (09:04)
[2024-06-27] MEDS: PLAVIX 75 MG PO (09:04)
[2024-06-27] MEDS: MAGNESIUM OXIDE 500 MG PO (09:04)
[2024-06-27] MEDS: SENOKOT-S PO (09:05)
[2024-06-27] MEDS: LIDOCAINE 4% PATCH TOPICAL (09:05)
[2024-06-27] MEDS: KCL 20 MEQ PO ×2 (09:05→09:13)
[2024-06-27] MEDS: PACERONE 400 MG PO (09:05)
[2024-06-27] MEDS: LASIX 20 MG IV (09:13)
[2024-06-27] MEDS: NSS IV (10:17)
--- NOTE | 2024-06-27 10:36 | W.DCSUMMARY ---
Discharge Summary
Discharge Data
Date of Admission: 06/16/24
Date of Discharge: 06/27/24
Total time spent discharging patient (in min): 35
-
Pending Results: No
Hospital Course
Primary care physician:
None
Outpatient ux researcher:
Dr. Toledo
Inpatient consultants:
DCA, tipple operator
Procedures:
1. CABG x 2 (CLINT to LAD, GSV to OM); Repair of epicardial adipose avulsion; Ao cannulation site repair; Right thymectomy w/ removal of enlarged (1.6cm) lymph node on 06/21/24,
Primary Diagnosis:
1. Multivessel coronary artery disease
Secondary Diagnoses:
1. NSTEMI, peak trop 117
2. ICM intraop LVEF 45%
3. Class 1 obesity (BMI 32)
4. HTN
5. HLD
6. Former smoker
7. EtOH (2-3 beers 4 times/wk)
8. Elevated LFTs
9. acute post-op Hyponatermia
10. acute post-op atrial fibrillation
HPI: 74 y/o male presented with chest pain and was ruled in for NSTEMI and was taken to the CVOR on 06/[address] Regalado
Hospital course: Patient was admitted on 06/16 with several episodes of chest pain and shortness of breath. He ruled in for non-STEMI and was taken to the cardiac [employer] where multivessel disease was found. Patient was subsequently taken to the
CV OR by Dr. Regalado on 06/21. Postoperatively he returned to the CVICU on Levophed, dobutamine, Precedex, and insulin infusions. Precedex was weaned off and patient was extubated on 06/22 at 00 35. In the morning patient's dobutamine remained at 2
and Levophed was weaned off. Clemens catheter was removed. Patient was given amiodarone 150 mg bolus for sinus tachycardia. On 06/23 postoperative day 2 dobutamine was weaned down to 1 mcg/kg/min and was given Lasix 40 mg. Chest tubes were
discontinued. On 06/24 postoperative day 3 patient had a 1 hour episode of atrial fibrillation and dobutamine was weaned off. He was diuresed with 20 mg of IV Lasix. Later in the evening patient had another 17-minute episode of atrial fibrillation
was given amiodarone 150 mg IV and he converted back into sinus rhythm. On 06/25 postoperative day 4 patient was again diuresed with Lasix 20 mg twice daily and Lopressor was increased to 25 mg twice daily along with amiodarone 400 mg 3 times daily
p.o. Right IJ Cordis was discontinued. On 06/26 postoperative day 5 patient was hyponatremic with a sodium of 132 discharge was delayed and patient was diuresed with Lasix 20 mg twice daily. On 06/27 postoperative day 6 patient's sodium was 134 he
was deemed stable for discharge home with oral Lasix regimen. Repeat echocardiogram showed LVEF of 45% an mild MR.
Home medication changes:
see below
Discharge Plan
-
Patient Disposition: Home (Routine Discharge)
Discharge Diagnosis/Procedures: CABG x 2
Condition: Good
Diet: Low Cholesterol and Low Sodium
Activity: No strenuous activity
Driving Restrictions: Not until seen by your Dr
Bathing Restrictions: OK to Shower
Blood Work: bmp in one week
Other Services: Cardiac Rehab
Specialty Instructions: Weigh Daily- Call MD for wt gain/loss 3 lbs overnight/5 lbs in 1 week
Activity Restrictions/Additional Instructions:
ACTIVITY:
-No strenuous activity: no heavy lifting, pushing, pulling anything over 15 pounds for one month
-continue to use stairs as tolerated
DRIVING RESTRICTIONS:
-No driving for one month or until approved by your surgeon
WOUND CARE:
-Shower daily. Use soap & water.
-No lotions, creams or powders on incision area.
DIET:
-continue a low fat/low cholesterol diet.
-IF you are diabetic, continue carb controlled diet.
CARDIAC REHAB:
-Please make appointment to start in 5-6 weeks with your local hospital program. (See Cardiac Rehabilitation Discharge Booklet).
SPECIALTY INSTRUCTIONS:
-Weigh yourself daily. Call your physician for any weight gain/loss of 3 lbs overnight or 5 lbs in one week.
-REPORT any clicking noise or uneven appearance of your sternum to your surgeon immediately.
-If you smoke, you are instructed to quit. The [place] smoking hotline phone number is [phone]
Stand Alone Forms: DC Instructions- Cath/EP Lab
Referrals:
CT Transitional Care Nurse [Outside] (The Cardiothoracic Transitional Care Nurse will call you to set up a visit in 1-2 days.)
[facility] [Outside] - 07/31/24 10:00 am
(Cardiac Rehab Orientation appointment is on Wednesday07/31/24 at 10am.
The Cardiac Rehab gym is located on the first floor of the [facility].
Cardiac Rehab Orientation appointment is on � and� First Exercise appointment is on
The Cardiac Rehab gym is located on the first floor of the [facility].)
Mae Tiwari CRNP [Specified Professional Personl] - 08/01/24 11:00 am
()
Norman Regalado MD [Active] - 07/26/24 3:30 pm
UNKNOWN - PT DOES,NOT KNOW [Family Provider] -
Additional Discharge Medication Instructions: please take amiodarone 200mg twice a day for 14 days and then 200mg daily until seen by a ux researcher
take lasix for 5 days total and weigh yourself everyday
Prescriptions:
New
acetaminophen 325 mg Tablet
650 mg PO Q4HPRN PRN (Reason: mild pain,headache,temp >101F ) Qty: 0 0RF
aspirin 81 mg Tablet,Chewable
81 mg PO DAILY Qty: 0 0RF
cyclobenzaprine 10 mg Tablet
5 mg PO Q8HPRN PRN (Reason: muscle spasm) Qty: 10 0RF
amiodarone 200 mg Tablet
200 mg PO BID Qty: 90 0RF
clopidogrel 75 mg Tablet
75 mg PO DAILY Qty: 90 3RF
atorvastatin 40 mg Tablet
40 mg PO QPM Qty: 60 1RF
pantoprazole 40 mg Tablet,Delayed Release (Dr/Ec)
40 mg PO DAILY Qty: 90 0RF
gabapentin 100 mg Capsule
100 mg PO TID Qty: 30 0RF
metoprolol succinate 25 mg Tablet Extended Release 24 Hr
25 mg PO BID Qty: 60 1RF
oxycodone 5 mg Tablet
2.5 mg PO Q6HPRN PRN (Reason: severe pain) Qty: 14 0RF
furosemide [Lasix] 40 mg tablet
40 mg PO DAILY Qty: 5 0RF
potassium chloride 20 mEq tablet extended release
20 meq PO DAILY Qty: 5 0RF
Rx Instructions:
only take while on lasix
Held
ibuprofen [Advil] 200 mg Tablet
200 mg PO Q6HPRN PRN (Reason: mild pain)
Hold Instructions: Resume on 07/27/24.
Discharge Orders:
Discharge Patient (As Directed); Ordered 06/27/24
Ordered By: Keyla Davila
Care Plan Goals
Care Plan Goals:
Problem: Readiness for enhanced knowledge related to diagnosis and treatment plan
Goal: Understand your diagnosis and treatment plan needs, including medications if applicable.
Instructions: Know your diagnosis, underlying causes and treatment plan options, including medications if applicable. Consult with your health care team to learn about your diagnosis and treatment plan, including medications if applicable.
Discharge Date and Time
Print Language: GREEK
--- NOTE | 2024-06-27 11:04 | CM ---
Reviewed chart. Met with Mr. Hamilton to review discharge plans. He states he is feeling well and maybe able to go home soon. we reviewed a home visit by the Transitional Care Nurse He is agreeable to a home visit. Prior to admission he resides
alone in a one story home with four steps to enter. He states he has been ambulating here without any problems. He does not have any DME in the home. He states his children will be around to assist in his care if needed. Medical work-up in
progress. The discharge plan is to return home with family support and a home visit by the Transitional Care Nurse when medically stable.
--- NOTE | 2024-06-27 11:24 | PTCARENOTE ---
Pt reassessed. NSR on tele with rates in the 80s. BP 105/70. POX 99% on RA. Surgical sites stable. Resting in the chair. Awaiting discharge order.
--- NOTE | 2024-06-27 12:16 | W.[place]-PDMP ---
[place]
-
Checked the [place]- Prescription Drug Monitoring Program website, no red flags identified; safe to proceed with prescription.
--- NOTE | 2024-06-27 13:13 | PTCARENOTE ---
Discharge order received. Pt's daughter at bedside. All instructions reviewed using teach back. Pt states understanding. PIV and tele box d/c. all belongings taken with patient. Discharged via wheelchair.
== END 2024-06-27 13:26 | disposition home or self-care (01) | DRG 233 ==
LOC: CVICU 13:46
PROVIDERS: Anesthesiology; Clinical Nurse Specialist Family Health; Internal Medicine; Nurse Practitioner; Physician Assistant Medical; Thoracic Surgery (Cardiothoracic Vascular Surgery); ADMITTING PHYSICIAN Hospitalist; ATTENDING PHYSICIAN Thoracic Surgery (Cardiothoracic Vascular Surgery); CONSULT PHYSICIAN Internal Medicine Critical Care Medicine; CONSULT PHYSICIAN Internal Medicine Interventional Cardiology; EMERGENCY PHYSICIAN Emergency Medicine
PROC: B2111ZZ Fluoroscopy of Multiple Coronary Arteries using Low Osmolar Contrast (ICD-10-PCS; 2024-06-16)
PROC: B2151ZZ Fluoroscopy of Left Heart using Low Osmolar Contrast (ICD-10-PCS; 2024-06-16)
PROC: 4A023N7 Measurement of Cardiac Sampling and Pressure, Left Heart, Percutaneous Approach (ICD-10-PCS; 2024-06-16)
PROC: 06BP4ZZ Excision of Right Saphenous Vein, Percutaneous Endoscopic Approach (ICD-10-PCS; 2024-06-21)
PROC: 02100ZC Bypass Coronary Artery, One Artery from Thoracic Artery, Open Approach (ICD-10-PCS; 2024-06-21)
PROC: 07BM0ZZ Excision of Thymus, Open Approach (ICD-10-PCS; 2024-06-21)
PROC: 07B70ZZ Excision of Thorax Lymphatic, Open Approach (ICD-10-PCS; 2024-06-21)
PROC: B24BZZ4 Ultrasonography of Heart with Aorta, Transesophageal (ICD-10-PCS; 2024-06-21)
PROC: 5A1221Z Performance of Cardiac Output, Continuous (ICD-10-PCS; 2024-06-21)
PROC: 021009W Bypass Coronary Artery, One Artery from Aorta with Autologous Venous Tissue, Open Approach (ICD-10-PCS; 2024-06-21)
PROC: 30233R1 Transfusion of Nonautologous Platelets into Peripheral Vein, Percutaneous Approach (ICD-10-PCS; 2024-06-21)
PROC: 02Q Heart and Great Vessels, Repair (ICD-10-PCS; 2024-06-21)
DX: I21.4 Non-ST elevation (NSTEMI) myocardial infarction (principal); I50.21 Acute systolic (congestive) heart failure; I31.8 Other specified diseases of pericardium; E87.1 Hypo-osmolality and hyponatremia; D62 Acute posthemorrhagic anemia; J98.11 Atelectasis; I25.10 Atherosclerotic heart disease of native coronary artery without angina pectoris; F10.10 Alcohol abuse, uncomplicated; E66.811 Obesity, class 1; J45.909 Unspecified asthma, uncomplicated; I25.5 Ischemic cardiomyopathy; I48.91 Unspecified atrial fibrillation; I71.21 Aneurysm of the ascending aorta, without rupture; E78.5 Hyperlipidemia, unspecified; D69.59 Other secondary thrombocytopenia; E86.1 Hypovolemia; I11.0 Hypertensive heart disease with heart failure; Z68.32 Body mass index [BMI] 32.0-32.9, adult; Z82.49 Family history of ischemic heart disease and other diseases of the circulatory system; Z87.891 Personal history of nicotine dependence; Z91.148 Patient's other noncompliance with medication regimen for other reason
CPT/HCPCS: 88307; 93308; 71045; 71046; 71250; 76700; 80048; 80053; 80061; 80306; 81003; 81015; 82010; 82248; 82330; 82565; 82805; 82810; 82947; 82962; 82977; 83036; 83735; 84100; 84132; 84302; 84484; 84520; 85014; 85018; 85025; 85027; 85049; 85610; 85730; 86850; 86900; 86901; 86920; 93005; 93306; 93312; 93320; 93325; 93458; 93880; 94002; 94003; 96374; 96375; 96376; 97116; 97163; 97166; 99152; 99153; 99291; C1894; P9045; P9073; Q9950; Q9957; Q9967

== ENCOUNTER → 2024-07-04 09:03 | Outpatient (REF) | payer BC, SELFPAY ==
[2024-07-04 10:38] LABS: Blood Urea Nitrogen 14 mg/dl (9-20); Calcium 9.5 mg/dl (8.4-10.2); Carbon Dioxide 26 mmol/L (22-30); Chloride 106 mmol/L (98-107); Glucose 110 mg/dl (70-99); Potassium 4.7 mmol/L (3.5-5.1); Sodium 140 mmol/L (135-145); eGFR > 60.00
== END ==
LOC: REG 09:03
PROVIDERS: ATTENDING PHYSICIAN Thoracic Surgery (Cardiothoracic Vascular Surgery)
DX: E87.1 Hypo-osmolality and hyponatremia (principal)
CPT/HCPCS: 36415; 80048

== ENCOUNTER → 2024-08-09 09:46 | Outpatient (REF) | payer BC, SELFPAY ==
[2024-08-09 11:29] LABS: Blood Urea Nitrogen 11 mg/dl (9-20); Calcium 9.5 mg/dl (8.4-10.2); Carbon Dioxide 26 mmol/L (22-30); Chloride 108 mmol/L (98-107); Glucose 103 mg/dl (70-99); Potassium 4.3 mmol/L (3.5-5.1); Sodium 139 mmol/L (135-145); eGFR > 60.00
== END ==
LOC: REG 09:46
PROVIDERS: ATTENDING PHYSICIAN Nurse Practitioner
DX: I25.110 Atherosclerotic heart disease of native coronary artery with unstable angina pectoris (principal); I51.9 Heart disease, unspecified
CPT/HCPCS: 36415; 80048

== ENCOUNTER 2024-08-23 08:41 | Outpatient (RCR) | payer BC, SELFPAY | END 2024-08-23 23:59 | disposition home or self-care (01) | LOC: CRHB 08:41 | PROVIDERS: ATTENDING PHYSICIAN Internal Medicine Interventional Cardiology | DX: I25.10 Atherosclerotic heart disease of native coronary artery without angina pectoris (principal); I21.4 Non-ST elevation (NSTEMI) myocardial infarction (principal); Z95.1 Presence of aortocoronary bypass graft; I25.2 Old myocardial infarction | CPT/HCPCS: 93798 ==

== ENCOUNTER 2024-08-30 09:28 | Outpatient (RCR) | payer BC, SELFPAY | END 2024-08-31 11:52 | disposition home or self-care (01) | LOC: CRHB 09:28 | PROVIDERS: ATTENDING PHYSICIAN Internal Medicine Interventional Cardiology | DX: I25.10 Atherosclerotic heart disease of native coronary artery without angina pectoris (principal); I25.2 Old myocardial infarction; Z95.1 Presence of aortocoronary bypass graft; I10 Essential (primary) hypertension | CPT/HCPCS: 93798 ==

== ENCOUNTER → 2024-10-10 09:16 | Outpatient (REF) | payer BC, SELFPAY ==
[2024-10-10 10:12] LABS: Hematocrit 42.6 % (39.0-52.0); Hemoglobin 14.1 g/dL (13.0-18.0); Mean Corp Hgb Conc. 33.1 g/dL (33.0-37.0); Mean Corpuscular Volume 84.4 fL (80.0-94.0); Nucleated Red Blood Cells % 0 % (-); Platelet Count 194 10^3/uL (130-400); Red Cell Dist. Width 15.4 % (11.5-14.5)
[2024-10-10 11:11] LABS: ALT (SGPT) 17 U/L (0-50); AST (SGOT) 20 U/L (17-59); Albumin 4.5 g/dl (3.5-5.0); Alkaline Phosphatase 88 U/L (38-126); Blood Urea Nitrogen 15 mg/dl (9-20); Calcium 9.8 mg/dl (8.4-10.2); Carbon Dioxide 27 mmol/L (22-30); Chloride 108 mmol/L (98-107); Glucose 106 mg/dl (70-99); Potassium 4.4 mmol/L (3.5-5.1); Sodium 140 mmol/L (135-145); Total Protein 7.4 g/dl (6.3-8.2); eGFR > 60.00
[2024-10-10 11:20] LABS: TSH 1.39 uIU/ml (0.47-4.68)
[2024-10-10 12:54] LABS: HDL Cholesterol 54 mg/dl; LDL Cholesterol, Calculated 81 mg/dl; Very Low Density Lipoprotein 23 mg/dl (0-30)
== END ==
LOC: REG 09:16
PROVIDERS: ATTENDING PHYSICIAN Nurse Practitioner
DX: E78.5 Hyperlipidemia, unspecified (principal); I25.110 Atherosclerotic heart disease of native coronary artery with unstable angina pectoris; I48.0 Paroxysmal atrial fibrillation
CPT/HCPCS: 36415; 80053; 80061; 84443; 85025